=== PATIENT | female | born 1950 | race Caucasian/White ===

== ENCOUNTER 2020-04-15 14:49 | Emergency (ER) | payer MEDICARE, SELFPAY ==
[2020-04-15 16:34] VITALS: BP 190/77; PULSE 114; RESP 18; TEMP 36.8; O2SAT 98; BMI 20.7
--- NOTE | 2020-04-15 17:48 | CT_ITS ---
EXAMINATION: CT ANGIOGRAM CHEST WITH CONTRAST CLINICAL INFORMATION: Upper back pain with question of dissection. COMPARISON: CT chest 02/15/2020 and CTA chest 08/02/2016. TECHNIQUE: Multiple axial images were obtained through the chest after the administration of 70 mL of Omnipaque 350 intravenous contrast. Extensive vascular post-processing including two-dimensional and three-dimensional reformatted images were created and reviewed on an independent workstation. This CT examination was performed using dose optimization techniques as appropriate, variously including the following: *Automated exposure control. *Adjustment of mA and/or kV according to patient size (this includes techniques or standardized protocols for targeted exams where dose is matched to indication/reason for exam; i.e. extremities or head). *Use of iterative reconstruction technique. DLP: 224 mGy-cm VASCULAR FINDINGS: The thoracic aorta demonstrates atherosclerotic changes but no aneurysm or dissection is seen. Mild atherosclerotic changes are seen with calcific plaque. Three-vessel branching pattern of the arch is present. The visualized portion of the abdominal aorta demonstrates atherosclerotic changes with calcified plaque but is otherwise unremarkable. The celiac and SMA are patent. Single renal arteries are present in each side which are patent. Although not carried out for evaluation of the pulmonary arteries or pulmonary veins, these are extremely well seen and there is no evidence of pulmonary emboli. NONVASCULAR FINDINGS: There are underlying changes of COPD in the lungs. Biapical pleural scarring is present. There had been pulmonary nodules noted in the past. A new 7 mm right upper lobe nodule medially had been noted previously which now measures only 3.6 mm (series 5 image 76). Other lung nodules are unchanged. There is a paracardiac mass in the left lower lobe measuring 1.8 x 1.8 x 1.2 cm. Portions measure water density or slightly greater yet some portions measure more solid. The appearance of this is unchanged when compared to the prior exam but on the 02/10/2018 study this was significantly smaller measuring 0.7 x 0.4 cm (prior series 4 image 446). No mediastinal or hilar lymphadenopathy is seen. The visualized chest wall is unremarkable. Again seen are calcified thyroid nodules. No significant abnormality is seen in the upper abdomen. CT/CT angio chest IMPRESSION: 1. No evidence of aortic dissection or aneurysm. 2. No evidence of pulmonary emboli. 3. Underlying COPD with the majority of pulmonary nodules without change. 4. A worrisome mass which has significantly enlarged since 02/10/2018 in the left lower lobe adjacent to the cardiac border and major fissure. PET/CT is recommended for further evaluation.
--- NOTE | 2020-04-15 17:48 | ECG_ITS ---
Test Reason : upper back pain Blood Pressure : / mmHG Vent. Rate : 124 BPM Atrial Rate : 124 BPM P-R Int : 144 ms QRS Dur : 098 ms QT Int : 308 ms P-R-T Axes : 084 088 040 degrees QTc Int : 442 ms Sinus tachycardia with occasional Premature ventricular complexes Possible Anterior infarct (cited on or before 01-AUG-2016) Abnormal ECG When compared with ECG of 30-SEP-2018 08:01, Sinus rhythm has replaced Atrial fibrillation ST no longer depressed in Inferior leads ST no longer depressed in Lateral leads T wave inversion less evident in Inferior leads T wave inversion no longer evident in Lateral leads Referred By: Edgar Quesada Electronically Signed By:ANA ADAME MD
--- NOTE | 2020-04-15 17:52 | ED_ITS ---
HPI - Back Pain/Injury General Chief Complaint: Back Pain/Injury Stated Complaint: mid back pain Time Seen by Provider: 04/15/20 17:42 Source: patient Mode of arrival: ambulatory Limitations: no limitations History of Present Illness HPI Narrative: patient with no history of back problems history of AFib on Eliquis woke up at 04:00 went to bathroom and while coming back noticed sharp pain in right infrascapular area which getting slightly worse on movements no shortness of breath no chest pain no diaphoresis no syncope no spinal tenderness no rash. Patient never had similar pain in the past patient denies any abdominal pain no nausea no vomiting Related Data Allergies Allergy/AdvReac Type Severity Reaction Status Date / Time nickel [NICKEL] Allergy Severe RASH Unverified 03/07/20 14:35 moxifloxacin [From AVELOX] Allergy Unknown UNKNOWN Unverified 03/07/20 14:35 Review of Systems Review of Systems: REVIEW OF SYSTEMS: Pertinent positives and negatives are stated above in the history. GEN: no fevers, chills, fatigue HEENT: no nasal congestion, sore throat, ear pain NEURO: no headache, dizziness, focal weakness PULM: no cough, shortness of breath CV: no chest pain, palpitations, LE edema ABD: no abdominal pain, nausea, vomiting, diarrhea : no dysuria, urgency, frequency SKIN: no rash ROS otherwise negative x 10 PMFSH Past Medical History Medical History Atrial fibrillation COPD (chronic obstructive pulmonary disease) Hypertension Surgical History H/O lumpectomy History of appendectomy Social History Social History Advance Directives: No Advance Directives Information Provided: Yes Physical Exam Vital Signs: Vital Signs: Vital Signs Temp Pulse Resp BP Pulse Ox 04/15/20 21:17 91 18 176/54 H 99 04/15/20 20:59 107 H 167/68 H 04/15/20 20:46 110 H 16 167/68 H 97 04/15/20 19:25 108 H 18 160/69 H 96 04/15/20 16:34 98.3 F 114 H 18 190/77 H 98 Body Mass Index 20.7 Appearance: Alert. Oriented X3. No acute distress. Eyes: Pupils equal, round and reactive to light. ENT: Pharynx normal. Neck: Normal inspection. Neck supple. CVS: Normal heart rate and rhythm. Pulses normal. Respiratory: No respiratory distress. Breath sounds normal. no focal bony ten derness, skin normal no vertebral tenderness Abdomen: Soft and nontender. Skin: Skin warm and dry. Normal skin color. Normal skin turgor. Extremities: No lower extremity edema. Good range of movement Neuro: Oriented X 3. No motor deficit. No sensory deficit. Course Course Course Narrative: Patient feeling much better now CTA negative for any aortic dissection or any significant pathology patient has a small nodule on the left lower lobe which is been stable for last 2 years , pain likely is muscular MDM - Back Pain/Injury Lab Data Result diagrams: 04/15/20 18:45 04/15/20 18:46 Labs: Lab Results 04/15/20 04/15/20 04/15/20 Range/Units 18:45 18:45 18:46 WBC 8.1 (4.8-10.8) X10*3/uL RBC 5.18 (4.20-5.50) X10*6/uL Hgb 15.0 (12.0-16.0) g/dl Hct 43.9 (37-47) % MCV 84.7 (80-98) fL MCH 29.0 (27.0-33.0) pg MCHC 34.2 (31.0-35.0) g/dl RDW 12.2 (11.0-16.0) % Plt Count 321 (160-400) X10*3/uL MPV 8.8 L (9.4-12.3) fL Immature Gran % (Auto) 0.2 (0.0-0.4) % Neut % (Auto) 83.5 H (45-73) % Lymph % (Auto) 11.0 L (20-40) % [place] % (Auto) 4.9 (2-11) % Eos % (Auto) 0.0 (0-4) % Baso % (Auto) 0.4 (0-2) % Lymph # (Auto) 0.9 L (1.2-4.9) X10*3/uL [place] # (Auto) 0.4 (0.1-1.2) X10*3/uL Eos # (Auto) 0.0 (0.0-0.4) X10*3/uL Baso # (Auto) 0.0 (0.0-0.2) X10*3/uL Abs Immat Gran (auto) 0.02 (0.00-0.03) X10*3/uL Absolute Neuts (auto) 6.8 (2.0-8.3) X10*3/uL Absolute Nucleated RBC 0.000 (0.0-0.012) X10*3/uL Nucleated RBC % (auto) 0.0 (0.0-0.2) /100WBC PT 14.6 H (10.8-13.0) SEC INR 1.2 H (0.9-1.1) APTT 41.7 H (24.1-38.0) SEC Sodium 128 L (135-145) mmol/L Potassium 4.1 (3.3-5.1) mmol/l Chloride 91 L (96-108) mmol/L Carbon Dioxide 26 (22-29) mmol/L Anion Gap 15 (12-20) BUN 14 (9-16) mg/dL Creatinine 0.82 (0.5-1.4) mg/dL Estim Creat Clear Calc 54.3 Estimated GFR > 60 Random Glucose 148 H (60-115) mg/dL Calcium 9.5 (8.4-10.2) mg/dL Total Bilirubin 0.7 (0.0-1.0) mg/dL AST 22 (5-31) U/L ALT 20 (0-31) U/L Alkaline Phosphatase 105 (39-117) U/L Total Protein 7.4 (6.5-8.0) g/dL Albumin 4.6 (3.5-5.0) g/dL ECG Data Attestation: I personally reviewed and interpreted this ECG as follows: Prior ECG tracings: available for review Interpretation: sinus tachycardia with heart rate 124 no acute STT wave changes normal axis poor progression of R-wave
[2020-04-15 18:50] LABS: MANUAL DIFF FLAG NO
[2020-04-15 18:58] LABS: Basophils Percent Auto 0.4 % (0-2); Hematocrit 43.9 % (37-47); Imm Gran Abs Auto 0.02 X10*3/uL (0.00-0.03); Imm Gran Pct Auto 0.2 % (0.0-0.4); Lymphocytes Absolute Auto 0.9 X10*3/uL (1.2-4.9); Mean Corpuscular HGB Conc 34.2 g/dl (31.0-35.0); Mean Corpuscular Volume 84.7 fL (80-98); Mean Platelet Volume 8.8 fL (9.4-12.3); Monocytes Absolute Auto 0.4 X10*3/uL (0.1-1.2); Monocytes Percent Auto 4.9 % (2-11); Neutrophils Absolute Auto 6.8 X10*3/uL (2.0-8.3); Neutrophils Percent Auto 83.5 % (45-73); Platelet Count 321 X10*3/uL (160-400); Red Blood Count 5.18 X10*6/uL (4.20-5.50); Red Cell Distribution Width 12.2 % (11.0-16.0); White Blood Count 8.1 X10*3/uL (4.8-10.8)
[2020-04-15 19:17] LABS: Alanine Aminotransferase 20 U/L (0-31); Albumin Level 4.6 g/dL (3.5-5.0); Alkaline Phosphatase 105 U/L (39-117); Anion Gap 15 (12-20); Aspartate Amino Transferase 22 U/L (5-31); Bilirubin Total 0.7 mg/dL (0.0-1.0); Blood Urea Nitrogen 14 mg/dL (9-16); Calcium 9.5 mg/dL (8.4-10.2); Carbon Dioxide 26 mmol/L (22-29); Chloride 91 mmol/L (96-108); Creatinine Clr Calc Pharmacy 54.3; Estimated Glomerular Filt Rate > 60; Glucose Random 148 mg/dL (60-115); Potassium 4.1 mmol/l (3.3-5.1); Sodium 128 mmol/L (135-145); Total Protein 7.4 g/dL (6.5-8.0)
[2020-04-15 19:23] LABS: INTERNATIONAL NORM RATIO 1.2 (0.9-1.1); Prothrombin Time 14.6 SEC (10.8-13.0)
[2020-04-15 19:25] VITALS: BP 160/69; PULSE 108; RESP 18; O2SAT 96
[2020-04-15 19:25] LABS: Partial Thromboplastin Time 41.7 SEC (24.1-38.0)
[2020-04-15] MEDS: iohexoL 350 MG/ML 100 ML INFUS..BTL IV (19:51)
[2020-04-15 20:46] VITALS: BP 167/68; PULSE 110; RESP 16; O2SAT 97
--- NOTE | 2020-04-15 20:47 | PC.NURSE ---
MD IN ROOM FOR RE-EVAL. PT C/O HEADACHE PAIN AND UPPER BACK PAIN. PT AWAITING MEDS FOR PAIN.
[2020-04-15] MEDS: traMADoL HCL 50 MG TABLET PO (20:58)
[2020-04-15] MEDS: Lidocaine 4 % Patch ADH..PATCH 1 PATCH TRANSDERMA (20:58)
[2020-04-15 20:59] VITALS: BP 167/68; PULSE 107
[2020-04-15] MEDS: Metoprolol Tartrate 5 MG/5 ML VIAL IVPUSH (20:59)
[2020-04-15 21:17] VITALS: BP 176/54; PULSE 91; RESP 18; O2SAT 99
--- NOTE | 2020-04-15 21:29 | PC.NURSE ---
Addendum entered by Vibha Jain 04/15/20 21:31: THIS CALL WAS MADE AT 1345. NURSE UNABLE TO TAKE REPORT. Original Note: FLOOR UNABLE TO TAKE REPORT.
--- NOTE | 2020-04-15 21:29 | PC.NURSE ---
FLOOR UNABLE TO TAKE REPORT.
== END 2020-04-15 22:55 | disposition home or self-care (01) ==
PROVIDERS: Emergency Provider Internal Medicine; PCP Internal Medicine
DX: M54.5 Low back pain (principal); I48.91 Unspecified atrial fibrillation; Z79.01 Long term (current) use of anticoagulants; Z79.899 Other long term (current) drug therapy
CPT/HCPCS: 36415; 71275; 80053; 85025; 85610; 85730; 93005; 96374; 99284

== ENCOUNTER → 2020-08-07 08:13 | Outpatient (BNVA) | payer MEDICARE, SELFPAY | PROVIDERS: PCP Internal Medicine; Visit Provider Internal Medicine | DX: I48.0 Paroxysmal atrial fibrillation (principal); I49.3 Ventricular premature depolarization; I10 Essential (primary) hypertension | CPT/HCPCS: 93005; 99212 ==

== ENCOUNTER 2020-09-02 10:28 | Outpatient (REF) | payer MEDICARE, SELFPAY ==
[2020-09-02 11:05] LABS: Estimated Average Glucose 143 mg/dL; Hemoglobin A1c % 6.6 %
[2020-09-02 11:24] LABS: Alanine Aminotransferase 19 U/L (0-31); Albumin Level 4.6 g/dL (3.5-5.0); Alkaline Phosphatase 112 U/L (39-117); Aspartate Amino Transferase 19 U/L (5-31); Bilirubin Direct 0.2 mg/dL (0.0-0.5); Bilirubin Total 0.6 mg/dL (0.0-1.0); Cholesterol 214 mg/dL; Glucose Fasting 145 mg/dL (60-99); HDL Cholesterol 65 mg/dL; LDL Cholesterol Calculated 116 mg/dl; Total Protein 7.3 g/dL (6.5-8.0); Triglycerides 166 mg/dL
[2020-09-02 11:35] LABS: Reflex LDLD? No
== END 2020-09-02 10:29 | disposition home or self-care (01) ==
LOC: HO.LNP 10:28
PROVIDERS: Visit Provider Internal Medicine
DX: E78.00 Pure hypercholesterolemia, unspecified (principal); R73.03 Prediabetes
CPT/HCPCS: 80061; 80076; 82947; 83036

== ENCOUNTER → 2020-09-13 10:00 | Outpatient (BNVA) | payer MEDICARE, SELFPAY | PROVIDERS: PCP Internal Medicine; Visit Provider Surgery | DX: R91.1 Solitary pulmonary nodule (principal) | CPT/HCPCS: 99212 ==

== ENCOUNTER 2020-09-13 14:51 | Outpatient (REF) | payer MEDICARE, SELFPAY ==
--- NOTE | 2020-09-13 17:44 | PFT_ITS ---
INDICATION: Pulmonary nodule. SPIROMETRY: The FEV1 to FVC 40% with an FEV1 of 0.65 L, which is 29% predicted, and an FVC of 1.61 L, which is 55% predicted. No significant response to bronchodilators noted. Maximum voluntary ventilation 27% predicted. LUNG VOLUMES: Total lung capacity 91% predicted with residual volume of 132% predicted. DIFFUSION CAPACITY: DLCO 19% predicted. COMPARISONS: None available. INTERPRETATION: There is an obstructive ventilatory defect consistent with very severe COPD. No significant response to bronchodilators noted. This is severe decrease in maximum voluntary ventilation secondary to deconditioning and also worsening dynamic inspiratory capacity. Lung volumes do demonstrate significant air trapping due to the COPD and there is also a very severe diffusion impairment consistent with significant emphysematous changes and/or the parenchymal lung conditions and/or pulmonary vascular conditions. Clinical correlation is warranted. MD MELITON Tinoco/MODL / [id number]
== END 2020-09-13 14:52 | disposition home or self-care (01) ==
LOC: HO.RESP 14:51
PROVIDERS: PCP Internal Medicine; Visit Provider Surgery
DX: R91.1 Solitary pulmonary nodule (principal)
CPT/HCPCS: 94060; 94727; 94729

== ENCOUNTER 2020-10-01 11:34 | Outpatient (REF) | payer MEDICARE, SELFPAY ==
--- NOTE | ~2020-10-01 | PE_ITS ---
EXAMINATION: Fluorine-18 FDG PET/CT Scan CLINICAL INDICATION: Initial treatment management. Pulmonary nodule, initial staging. PROCEDURE: 68 minutes following the intravenous administration of 16.6 mCi of fluorine 18 FDG, images from the base of the skull to the mid thighs were obtained using a combined PET/CT scanner with CT scan based attenuation correction. No oral contrast was administered. No intravenous contrast was administered. Transverse, coronal, sagittal, and volume reconstruction projections were obtained. The patient's blood glucose as determined by a finger stick, was 140 mg/dl immediately prior to injection. Total CT exam dose-length product 223.29 mGy-cm * These CT images were obtained using dose optimization techniques as appropriate, variously including the following: Automated exposure control * Adjustment of mA and/or kV according to patient size (this includes techniques or standardized protocols for targeted exams where dose is matched to indication/reason for exam; i.e. extremities or head) * Use of iterative reconstruction technique COMPARISON: No previous PET/CT scan is available for comparison. CT angiogram of the chest dated 04/15/[address] scan of the abdomen and pelvis dated 11/21/2018 are available for comparison. FINDINGS: (Slice numbers described in this report are numbered superiorly to inferiorly with slice #1 in the head) NECK AND VISUALIZED HEAD: No foci of abnormal FDG activity are noted. The distribution of FDG activity is physiological. There is no cervical lymphadenopathy. Several calcified right thyroid lobe nodules are present, unchanged from prior studies. There is no abnormal FDG activity in the thyroid gland. THORAX: There is an FDG avid left lower lobe pulmonary nodule showing SUVmax 5.3, slice 111/267. This corresponds to an opacity on the corresponding CT images it measures 2.1 x 1.6 cm in largest transverse dimensions, and approximately 1.9 cm cephalocaudad. There is similar in appearance to the CT scan dated 04/15/2020.h there is a focus of mildly increased FDG activity present in a pleural-based opacity posteriorly in the left lower lobe, SUVmax 2.5, slice 97/267. On the CT images this measures 1.0 x 0.6 cm in largest transverse dimensions, and approximately 0.7 cm cephalocaudad. This appears larger than a smaller subcentimeter nodule present on 04/15/2020. There are several additional small subcentimeter nodules present bilaterally but do not appear significantly changed from 04/15/2020 and are too small to be characterized on the FDG PET images. There is also some apical scarring present bilaterally and this does not show abnormal FDG activity. There is no mediastinal, supraclavicular, or axillary lymphadenopathy. Postsurgical changes are present in the left breast with no associated abnormal FDG activity. ABDOMEN AND PELVIS: No foci of abnormal FDG activity are present in the abdomen or pelvis. The liver, gallbladder, spleen, kidneys, adrenal glands and pancreas are unremarkable except for a densely calcified 0.7 cm right lower pole renal calculus which does not appear significantly changed from the prior CT scan of the abdomen and pelvis dated 11/21/2018. A splenule medial to the lower pole of the anterior aspect of the spleen is noted and is also unchanged from 11/21/2018 and shows no abnormal FDG activity. There is mild FDG activity throughout the gastrointestinal tract without a suspicious focal component. There is diffuse diverticulosis without evidence of diverticulitis. The hollow viscera are otherwise unremarkable. The uterus appears resected. The pelvic organs are otherwise unremarkable. There is no retroperitoneal, mesenteric, pelvic or renal lymphadenopathy. MUSCULOSKELETAL: No foci of abnormal FDG activity are present in the osseous structures. There are diffuse degenerative changes in the spine but no suspicious sclerotic or lytic lesions are visualized. VASCULAR: Diffuse vascular calcifications including coronary are noted. PET/PET CT fusion skull to thigh IMPRESSION: 1. An FDG avid left lower lobe pulmonary nodule is noted and is most likely malignant in etiology. 2. A few additional pulmonary nodules are present, subcentimeter in size and too small to be characterized on the FDG PET images. 3. No additional abnormalities are present suspicious for metastatic or other malignant lesions.
== END 2020-10-01 11:35 | disposition home or self-care (01) ==
LOC: HO.PET 11:34
PROVIDERS: PCP Internal Medicine; Visit Provider Surgery
DX: Z13.89 Encounter for screening for other disorder (principal)

== ENCOUNTER → 2020-10-04 10:08 | Outpatient (BNVA) | payer MEDICARE, SELFPAY | PROVIDERS: PCP Internal Medicine; Visit Provider Surgery | DX: R91.1 Solitary pulmonary nodule (principal); Z79.899 Other long term (current) drug therapy; Z87.891 Personal history of nicotine dependence | CPT/HCPCS: 99212 ==

== ENCOUNTER → 2020-10-17 10:41 | Day surgery (SDC) | payer MEDICARE, SELFPAY ==
--- NOTE | ~2020-10-17 | CT_ITS ---
PROCEDURE: CT-GUIDED INSERTION, PLEURAL TUNNEL CATHETER CLINICAL INFORMATION: Small pneumohemothorax status post left lung biopsy. Pneumothorax increasing in size. COMPARISON: CT from earlier on same day. TECHNIQUE: CT fluoroscopic-guided left chest tube placement. This CT examination was performed using dose optimization techniques as appropriate, variously including the following: *Automated exposure control *Adjustment of mA and/or kV according to patient size (this includes techniques or standardized protocols for targeted exams where dose is matched to indication/reason for exam; i.e. extremities or head) *Use of iterative reconstruction technique DLP: 679 mGy-cm FINDINGS: Informed consent had been obtained at time of original consent for left lung biopsy. Using CT fluoroscopic guidance and sterile technique a Yueh needle was placed into the air collection about the lower left chest wall anteriorly. When gas was aspirated the stylette was removed and guidewire was placed through the catheter sheath and coiled within the left pleural space. Following fascial dilatation a 10 Chadian drainage catheter was placed. The catheter was then placed to waterseal. Catheter was placed to low wall suction with improvement in size of the pneumothorax. Suction can be disconnected for patient ambulation. CT/CT chest tube placement IMPRESSION: Placement of 10 Chadian left chest tube for small left pneumothorax/hemothorax.
--- NOTE | ~2020-10-17 | CT_ITS ---
PROCEDURE: CT-GUIDED INSERTION, PLEURAL TUNNEL CATHETER CLINICAL INFORMATION: Small pneumohemothorax status post left lung biopsy. Pneumothorax increasing in size. COMPARISON: CT from earlier on same day. TECHNIQUE: CT fluoroscopic-guided left chest tube placement. This CT examination was performed using dose optimization techniques as appropriate, variously including the following: *Automated exposure control *Adjustment of mA and/or kV according to patient size (this includes techniques or standardized protocols for targeted exams where dose is matched to indication/reason for exam; i.e. extremities or head) *Use of iterative reconstruction technique DLP: 679 mGy-cm FINDINGS: Informed consent had been obtained at time of original consent for left lung biopsy. Using CT fluoroscopic guidance and sterile technique a Yueh needle was placed into the air collection about the lower left chest wall anteriorly. When gas was aspirated the stylette was removed and guidewire was placed through the catheter sheath and coiled within the left pleural space. Following fascial dilatation a 10 Latvian drainage catheter was placed. The catheter was then placed to waterseal. Catheter was placed to low wall suction with improvement in size of the pneumothorax. Suction can be disconnected for patient ambulation. CT/CT guided needle placement IMPRESSION: Placement of 10 Latvian left chest tube for small left pneumothorax/hemothorax.
--- NOTE | ~2020-10-17 | CT_ITS ---
PROCEDURE: CT-GUIDED BIOPSY, LUNG CLINICAL INFORMATION: Left lung mass. COMPARISON: PET/CT of 10/01/[address] of the chest of 04/15/2020. TECHNIQUE: CT fluoroscopic-guided left lung nodule. This CT examination was performed using dose optimization techniques as appropriate, variously including the following: *Automated exposure control *Adjustment of mA and/or kV according to patient size (this includes techniques or standardized protocols for targeted exams where dose is matched to indication/reason for exam; i.e. extremities or head) *Use of iterative reconstruction technique DLP: 1071 mGy-cm FINDINGS: Informed consent was obtained from the patient prior to the procedure. During this process, the procedure and potential alternatives were explained, along with the intended outcome and benefits. The risks of the procedure, as well as the risk of not doing the procedure, were discussed. The patient was given the opportunity to ask questions regarding the procedure and appeared competent to make medical decisions. A signed consent form which documents this discussion was placed in the medical record. Patient has an approximately 2 cm lung nodule which is adjacent to the left heart border and contiguous with the left major fissure lying within the left lower lobe. There is a small amount of pericardial fluid anteriorly. There is also noted to be noncalcified subpleural 1 cm nodule within the right lower lobe on image 64 of 214 of series #4. There is a 4 mm noncalcified nodule seen within the right middle lobe on image 51 of 214. There is a 4 mm noncalcified nodule seen within the right lower lobe on image 118 of 214. There is a 4 mm noncalcified nodule seen within the left upper lobe on image 7 of 214. There is a 4 mm noncalcified nodule seen within the left lower lobe on image 160 of 214 of series #4. Using sterile technique and CT fluoroscopic guidance a 17-gauge coaxial guiding needle was directed to the 2 cm mass adjacent to the pericardium within the left lower lobe with multiple 18-gauge core biopsies being obtained. Preliminary cytologic result was of an adequate specimen. Needle was removed. There is a small left pneumothorax present. Patient was also noted to develop a small left pleural fluid collection likely related to small hemothorax. Patient had a small pneumothorax postbiopsy. A repeat scan performed approximately 10 minutes later showed a mild increase in size of the pneumothorax. A few minutes later the patient had more symptoms of pain and shortness of breath and therefore was brought back to CT for left-sided chest tube placement which will be reported separately. CT/CT biopsy lung LT IMPRESSION: Left lung nodule biopsy with preliminary cytologic result of adequate specimen. Small postprocedure pneumothorax and hemothorax.
[2020-10-17 11:08] VITALS: BMI 20.5
[2020-10-17 11:15] LABS: MANUAL DIFF FLAG NO
[2020-10-17 11:19] LABS: Basophils Percent Auto 0.5 % (0-2); Eosinophils Percent Auto 0.2 % (0-4); Hematocrit 41.5 % (37-47); Hemoglobin 13.8 g/dl (12.0-16.0); Imm Gran Abs Auto 0.02 X10*3/uL (0.00-0.03); Imm Gran Pct Auto 0.3 % (0.0-0.4); Lymphocytes Absolute Auto 1.3 X10*3/uL (1.2-4.9); Lymphocytes Percent Auto 19.5 % (20-40); Mean Corpuscular HGB Conc 33.3 g/dl (31.0-35.0); Mean Corpuscular Hemoglobin 28.8 pg (27.0-33.0); Mean Corpuscular Volume 86.5 fL (80-98); Mean Platelet Volume 8.6 fL (9.4-12.3); Monocytes Absolute Auto 0.4 X10*3/uL (0.1-1.2); Monocytes Percent Auto 6.8 % (2-11); Neutrophils Absolute Auto 4.7 X10*3/uL (2.0-8.3); Neutrophils Percent Auto 72.7 % (45-73); Platelet Count 284 X10*3/uL (160-400); Red Cell Distribution Width 12.9 % (11.0-16.0); White Blood Count 6.5 X10*3/uL (4.8-10.8)
[2020-10-17 11:25] LABS: Prothrombin Time 12.4 SEC (10.8-13.0)
[2020-10-17 11:29] LABS: Partial Thromboplastin Time 40.2 SEC (24.1-38.0)
[2020-10-17 15:55] VITALS: BP 117/57; PULSE 104; RESP 22; TEMP 36.8; O2SAT 98
[2020-10-17 16:10] VITALS: BP 148/86; PULSE 99; RESP 20; O2SAT 98
[2020-10-17 16:25] VITALS: BP 120/72; PULSE 100; RESP 18; O2SAT 99
[2020-10-17] MEDS: Acetaminophen 325 MG TABLET 650 MG PO (16:41)
[2020-10-17 16:47] VITALS: BP 137/85; PULSE 102; RESP 18; O2SAT 100
== END ==
PROVIDERS: Radiology Diagnostic Radiology; PCP Internal Medicine; Visit Provider Radiology Diagnostic Radiology
DX: R91.1 Solitary pulmonary nodule (principal); J95.811 Postprocedural pneumothorax; Y84.8 Other medical procedures as the cause of abnormal reaction of the patient, or of later complication, without mention of misadventure at the time of the procedure; Y82.8 Other medical devices associated with adverse incidents; Y92.234 Operating room of hospital as the place of occurrence of the external cause; J94.2 Hemothorax; I10 Essential (primary) hypertension; J44.9 Chronic obstructive pulmonary disease, unspecified; I48.0 Paroxysmal atrial fibrillation; Z79.01 Long term (current) use of anticoagulants; Z79.899 Other long term (current) drug therapy; Z87.891 Personal history of nicotine dependence
CPT/HCPCS: 32408; 32551; 36415; 71045; 77012; 81210; 81235; 85025; 85610; 85730; 88305; 88333; 88341; 88342; 88360; 88377; 99152; 99153; C1729; J2250; J3010; Q4186

== ENCOUNTER 2020-10-17 16:59 | Inpatient (IN) | payer MEDICARE, SELFPAY ==
--- NOTE | ~2020-10-17 | XR_ITS ---
EXAMINATION: CR CHEST CLINICAL INFORMATION: Left chest tube clamped. 4 hour clamping trial. COMPARISON: Several prior chest x-rays, most recent of which is from earlier today. TECHNIQUE: AP upright portable view of the chest was obtained. FINDINGS: Multiple EKG leads overlie the chest. No change in positioning of the left basilar pleural catheter is seen. There is a persistent trace left apical pneumothorax, unchanged from the exam from earlier today. The lungs are hyperinflated, consistent with emphysema. Patchy parenchymal opacity is seen in the left mid and lower lung, similar to previous exam. No significant effusion is seen. The cardiac mediastinal silhouette is within normal limits in size. Calcification of the aortic arch is seen. Bony structures are unremarkable. XR/XR chest 1V IMPRESSION: No significant change in size of tiny left apical pneumothorax. No change in patchy left mid and lower lung parenchymal opacities, consistent with patient's known left lower lobe mass and surrounding atelectasis.
--- NOTE | ~2020-10-17 | XR_ITS ---
EXAMINATION: XR CHEST CLINICAL INFORMATION: Left pneumothorax pigtail catheter in place COMPARISON: 10/18/2020 TECHNIQUE: Frontal view of the chest was obtained. FINDINGS: Left basilar pigtail catheter in place. Cardiac leads overlie the chest. Hyperexpanded lungs. Small left pneumothorax is decreased in size from prior. No consolidation. Left lower lung nodule again noted. No pleural effusion. The cardiomediastinal silhouette is unchanged, with a calcified aorta. XR/XR chest 1V IMPRESSION: Left-sided chest tube in place with decrease in size of the small left pneumothorax.
--- NOTE | ~2020-10-17 | XR_ITS ---
EXAMINATION: XR CHEST CLINICAL INFORMATION: Left pneumothorax status post pigtail placement COMPARISON: 10/17/2020. TECHNIQUE: Frontal view of the chest was obtained. FINDINGS: Left basilar pigtail in place. Small left apical pneumothorax, slightly increased from the previous study. Left lower lung pulmonary mass. No consolidation or effusion. Cardiomediastinal silhouette stable. XR/XR chest 1V IMPRESSION: Small left apical pneumothorax slightly increased from the previous study. Left basilar pigtail in place.
--- NOTE | 2020-10-17 17:11 | ED_ITS ---
HPI - SOB/Dyspnea General Chief Complaint: General Medical Stated Complaint: transfer from [facility] Time Seen by Provider: 10/17/20 17:11 Source: patient and RN notes reviewed Mode of arrival: other (Stretcher) Limitations: no limitations History of Present Illness HPI Narrative: Patient is 70 years old with history of lateral left lung nodule came here for biopsy and during biopsy patient got small left apical pneumot horax chest tube was placed and patient sent to the ER for observation status post chest tube for pneumothorax patient is off Eliquis for last 3 days history of paroxysmal AFib COPD hypertension and lung nodule at this time patient is feeling slight discomfort at the site of chest tube otherwise denies any shortness of breath saturating 99% on room air Related Data Home Medications Medication Instructions Recorded Confirmed albuterol sulfate 90 mcg/actuation 1 inh INHALATION Q4H PRN 08/07/20 10/17/20 aerosol inhaler fluticasone furoate 200 1 inh INHALATION DAILY 08/07/20 10/17/20 mcg-vilanterol 25 mcg/dose inhalation powder ipratropium 0.5 mg-albuterol 3 mg 3 ml INHALATION QID 08/07/20 10/17/20 (2.5 mg base)/3 mL nebulization soln levothyroxine 88 mcg tablet 88 mcg PO DAILY 08/07/20 10/17/20 lisinopril 10 1 tab PO DAILY 08/07/20 10/17/20 mg-hydrochlorothiazide 12.5 mg tablet montelukast 10 mg tablet 10 mg PO DAILY 08/07/20 10/17/20 rosuvastatin 40 mg tablet 40 mg PO DAILY 08/07/20 10/17/20 tiotropium bromide 2.5 1 inh INHALATION DAILY 08/07/20 10/17/20 mcg/actuation mist for inhalation Previous Rx's Medication Instructions Recorded diltiazem HCl 180 mg 180 mg PO DAILY 90 Days #90 cap 06/25/20 capsule,extended release 24 hr apixaban 5 mg tablet 5 mg PO BID 90 Days #180 tab 07/22/20 Allergies Allergy/AdvReac Type Severity Reaction Status Date / Time moxifloxacin [From AVELOX] Allergy Severe UNKNOWN Verified 10/04/20 10:16 nickel [NICKEL] Allergy Severe RASH Verified 10/04/20 10:16 Review of Systems Review of Systems: Yes all other systems are reviewed and are negative PMFSH Past Medical History Medical History COPD (chronic obstructive pulmonary disease) Former smoker, stopped smoking in distant past History of cancer of left breast History of Graves' disease Hyperlipidemia Hypertension Hypothyroidism Osteopenia PAF (paroxysmal atrial fibrillation) Pulmonary nodule PVC (premature ventricular contraction) Surgical History History of appendectomy History of breast biopsy (~12/2009) History of colonoscopy History of hysterectomy (~12/1988) History of lumpectomy (~2009) History of tonsillectomy History of tubal ligation Family History Family History Father No problems noted. Mother CVD (cardiovascular disease) Social History Social History Smoking Status: Former smoker Use of substances other than those prescribed or required for medical reasons: No Advance Directives: No Advance Directives Information Provided: No service: No Current occupational status: retired Physical Exam Vital Signs: Vital Signs: Last Vital Signs Temp 97.9 F 10/17/20 19:40 Pulse 108 H 10/17/20 22:46 Resp 12 10/17/20 22:46 BP 115/53 L 10/17/20 22:46 Pulse Ox 91 L 10/17/20 22:46 Oxygen Flow Rate 2 10/17/20 17:13 Body Mass Index 20.4 Appearance: Alert. Oriented X3. No acute distress. Eyes: PERRLA, No Nystagmus ENT: Pharynx normal. Oral Mucosa moist Neck: Normal inspection. Neck supple. CVS: Normal heart rate and rhythm. Pulses normal. Respiratory: No respiratory distress. Equal air entry bilateral, no wheezing/rales/rhonchi chest tube on the left side connected to water seal with bubbling air Abdomen: Soft and nontender. Bowel sounds are present, no mass palpable, no CVA tenderness Skin: Skin warm and dry. Normal skin color. Normal skin turgor. Extremities: No lower extremity edema. No calf tenderness Neuro: Oriented X 3. No motor deficit. No sensory deficit.No cerebellar signs , cranial nerves II-XII intact MDM - SOB/Dyspnea MDM Narrative Medical decision making narrative: Patient status post left apical pneumothorax during the procedure for lung biopsy. Status post chest tube. Will admit patient to thoracic for observation Discharge Plan Discharge Clinical Impression: Pneumothorax after biopsy Patient Disposition: Admitted As Inpatient
[2020-10-17 17:13] VITALS: BP 131/50; PULSE 97; RESP 16; TEMP 37.1; O2SAT 99; BMI 20.4
--- NOTE | 2020-10-17 17:24 | PC.NURSE ---
Pt presents to ed from short stay after having lung biopsy to r/o CA and obtained hemothroax. Chest tube in place to low wall suction with 90cc of red blood in collection system. Pt reports no SOB, breathing is unlabored and even. nsr on monitor at this time, sat 99-100% on 2lpm via nc. pt reports 5/10 pain to biopsy site and was given tylenol prior to transfer to ED, declined any further pain interventions at this time. Plan for admission.
--- NOTE | 2020-10-17 19:39 | P.HPGS_ITS ---
History of Present Illness History of Present Illness Date of Service: 10/19/20 Chief complaint: transfer from [facility] Narrative: Patient is a 70 y.o. female with a past medical history of tobacco use (former smoker, 1PPD age [age]), left-sided breast cancer in 2009 (s/p lumpectomy and radiation), COPD, Asthma, emphysema, HTN, prediabetes, and suspicious pulmonary nodule in the left lower lobe who presents with a left pneumothorax following LLL IR bx performed today. A pigtail chest tube was placed in IR following the finding of left pneumothorax. Patient was seen by Dr. Gonzales in the Thoracic Surgery office on 10/04/20. She had been followed by Thoracic for a left lower lobe pulmonary nodule that was found on 04/15/2020. A chest CT showed a 1.8 x 1.8 x 1.2 left lower lobe medial nodule adjacent to the pericardium without any mediastinal lymphadenopathy and no pleural fluid. A CT scan of the chest was reviewed from January of 2020 which shows stability of that nodule when compared to that. A CT scan of the chest from 2017 was also reviewed showing that this same nodule at that time was 0.7 x 0.4 cm. A PET scan was recommended by Dr. Gonzales which showed the left lower lobe nodule to be PET avid SUV max 5.3 with a 2 cm nodule similar in size to back in March. There is no increased PET avidity elsewhere of concern. Her pulmonary function testing done on 09/13/2020 showed an FEV1 of 27% of predicted and a DLCO VA of 33% of predicted. For this reason, she was not deemed a candidate for surgery and was recommended to have a bx of the left lower lobe nodule. Following this bx, a left pneumothorax was found and pigtail placed by IR. For this reason, Thoracic Surgery requested to admit for observation. Patient seen and examined in ER. Doing well, anxious. Reports some shortness of breath following chest tube placement and pain to chest tube insertion site. Currently on 2L nasal cannula. Denies chest pain, nausea, vomiting, diarrhea, fevers, or chills. Chest tube currently to -20cm continuous LWS. Patient denies any other complaints at this time. Review of Systems Review of Systems: Yes all other systems are reviewed and are negative Constitutional: Constitutional: Reports no additional constitutional complaints Eyes: Eyes: Reports no additional eye complaints ENT: Reports system reviewed and no additional complaints, except as documented Cardiovascular: Cardiovascular: Denies chest pain, Denies leg edema, Reports dyspnea and Reports dyspnea on exertion Respiratory: Respiratory: Reports cough (nonproductive), Reports pain with cough (to left chest tube site), Reports dyspnea and Reports dyspnea on exertion Gastrointestinal: Gastrointestinal: Reports no additional gastrointestinal complaints Genitourinary: Comments: Reports she has not voided at this time Musculoskeletal: Musculoskeletal: Reports no additional musculoskeletal complaints Integumentary/Breasts: Skin/Breast: Reports system reviewed and no additional complaints, except as docu Neurologic: Reports system reviewed and no additional complaints, except as documented Psychiatric: Psychiatric: Reports no additional psychiatric complaints PMFSH Past Medical History Medical History COPD (chronic obstructive pulmonary disease) Former smoker, stopped smoking in distant past History of cancer of left breast History of Graves' disease Hyperlipidemia Hypertension Hypothyroidism Osteopenia PAF (paroxysmal atrial fibrillation) Pulmonary nodule PVC (premature ventricular contraction) Family History Family History Father No problems noted. Mother CVD (cardiovascular disease) Surgical History Surgical History History of appendectomy History of breast biopsy (~12/2009) History of colonoscopy History of hysterectomy (~12/1988) History of lumpectomy (~2009) History of tonsillectomy History of tubal ligation Social History Social History Household Members: Spouse Housing: House Do you presently have visiting nurse or other home services: No Smoking Status: Former smoker Smoked in Last 30 Days: No Smoking Quit Date: quit 24 years ago Use of substances other than those prescribed or required for medical reasons: No Currently Displaying Signs/Symptoms of Drug Intoxication Withdrawal: No Any prior treatment program specific to substance use: No Have you been hit, kicked, punched, or otherwise hurt by someone within the past year? If so, by whom?: No Do you feel safe in your current relationship?: Yes Is there a partner from a previous relationship who is making you feel unsafe now?: No Are you made to feel afraid or neglected: No Advance Directives: No Advance Directives Information Provided: No Do you have thoughts of harming others: None Do you have a plan to hurt others: No Plan Recently lost weight without trying: No service: No Current occupational status: retired Meds Allergies Allergy/AdvReac Type Severity Reaction Status Date / Time moxifloxacin [From AVELOX] Allergy Severe UNKNOWN Verified 10/04/20 10:16 nickel [NICKEL] Allergy Severe RASH Verified 10/04/20 10:16 Active Medications: Current Medications Generic Name Dose Route Start Last Admin Trade Name Freq PRN Reason Stop Dose Admin Acetaminophen 975 mg 10/17/20 20:00 Acetaminophen 325 Mg Tablet PO Q6H MEET Albuterol Sulfate 1 puff 10/17/20 19:30 Albuterol Sulfate 90 Mcg 8 Gm Inhaler INHALE Q4H PRN Shortness Of Breath Albuterol/Ipratropium 3 ml 10/17/20 21:00 Albuterol/Iprat 2.5/0.5mg 3 Ml Ampul.Neb INHALE QID [facility] Diltiazem HCl 180 mg 10/18/20 09:00 Diltiazem Hcl Cd 180 Mg Cap.Er.24h PO DAILY [facility] Protocol Docusate Sodium 100 mg 10/17/20 21:00 Docusate Sodium 100 Mg Capsule PO BID [facility] Fluticasone/Vilanterol 1 puff 10/18/20 09:00 Fluticasone/Vilanterol 200/25 Blst.W.Dev INHALE DAILY [facility] Levothyroxine Sodium 88 mcg 10/17/20 19:35 Levothyroxine Sodium 88 Mcg Tablet PO DAILY [facility] Montelukast Sodium 10 mg 10/17/20 19:35 Montelukast Sodium 10 Mg Tablet PO DAILY MEET Non-Formulary Medication 1 tab 10/18/20 09:00 Lisinopril-Hydrochlorothiazide PO DAILY [facility] Non-Formulary Medication 40 mg 10/17/20 19:35 Rosuvastatin PO DAILY [facility] Non-Formulary Medication 1 inhalation 10/18/20 09:00 Tiotropium Gladys INHALE DAILY [facility] Ondansetron HCl 4 mg 10/17/20 19:20 Ondansetron Hcl 4 Mg/2 Ml Vial IVPUSH Q8H PRN Nausea and Vomiting Oxycodone HCl 5 mg 10/17/20 19:28 Oxycodone Hcl Immed Release 5 Mg Tablet PO Q6H PRN Pain, Severe (Pain Scale 7-10) Pharmacy Consult 1 each 10/17/20 18:23 Consult Rx Perform Med Rec MISCELLANE ONCE PRN Consult order Senna 17.2 mg 10/17/20 19:20 Sennosides 8.6 Mg Tablet PO BEDTIME PRN Constipation Sodium Chloride 3 ml 10/18/20 00:00 0.9 % Sodium Chloride Flush 3 Ml Syringe IVFLUSH [facility] Medications Medication Instructions Recorded Confirmed Last Taken Type albuterol sulfate 90 mcg/actuation 1 inh INHALATION Q4H PRN 08/07/20 10/17/20 Unknown History aerosol inhaler fluticasone furoate 200 1 inh INHALATION DAILY 08/07/20 10/17/20 Unknown History mcg-vilanterol 25 mcg/dose inhalation powder ipratropium 0.5 mg-albuterol 3 mg 3 ml INHALATION QID 08/07/20 10/17/20 Unknown History (2.5 mg base)/3 mL nebulization soln levothyroxine 88 mcg tablet 88 mcg PO DAILY 08/07/20 10/17/20 Unknown History lisinopril 10 1 tab PO DAILY 08/07/20 10/17/20 Unknown History mg-hydrochlorothiazide 12.5 mg tablet montelukast 10 mg tablet 10 mg PO DAILY 08/07/20 10/17/20 Unknown History rosuvastatin 40 mg tablet 40 mg PO DAILY 08/07/20 10/17/20 Unknown History tiotropium bromide 2.5 1 inh INHALATION DAILY 08/07/20 10/17/20 Unknown History mcg/actuation mist for inhalation Physical Exam Vital Signs: Vital Signs: Last Vital Signs Temp 98.7 F 10/17/20 17:13 Pulse 97 10/17/20 17:13 Resp 16 10/17/20 17:13 BP 131/50 L 10/17/20 17:13 Pulse Ox 99 10/17/20 17:13 Oxygen Flow Rate 2 10/17/20 17:13 Body Mass Index 20.4 Const: General: cooperative, healthy appearing, comfortable and no acute distress Nutritional Appearance: well nourished Orientation/consciousness: oriented to person, oriented to place, oriented to time and patient oriented x3 Limitations: no limitations HENMT: Head: Yes normal to inspection, Yes normocephalic and Yes atraumatic Mouth: Normal oral and palatal mucosa present Eyes: Visual Castellon: normal visual castellon by confrontation Alignment and Position: alignment normal Periorbital: periorbital findings normal Conjunctivae: conjunctivae normal Sclerae: sclerae normal Pupils: Equal, round and reactive pupils present and Pupil accommodation reflex normal EOM: EOMs intact bilaterally Neck: Neck: Yes normal visual inspection, Yes full ROM, Yes no lymphadenopathy, Yes trachea midline, Yes supple, No lymphadenopathy, No tender and No tracheal deviation Lymphatic: no lymphadenopathy noted Chest: Chest palpation & inspection: normal inspection of the chest and no crepitus Resp: Other: Left anterior pigtail chest tube to -20cm continuous LWS. 1+ intermittent air leak at rest only. 95cc of serousanguinous drainage in atrium. No chest crepitus palpable. Lungs clear to auscultation to right chest castellon. Diminished to left. Effort & Inspection: normal respiratory effort, able to speak in complete sentences, normal respiratory pattern, no audible wheezes, Actively coughing (Non-productive. Congested), not labored, no pursed lip breathing, no respiratory distress, no retractions, no stridor, not tachypneic, no tracheal deviation, no use of accessory muscles and symmetric chest movement Auscultation: not clear to auscultation bilaterally Cardio: Jugular venous distension: no JVD Palpation: normal PMI Rate: regular rate Rhythm: regular rhythm Heart sounds: S1 normal heart sound present, S2 normal heart sound present, no click, no gallops, no murmurs and no rubs GI: Inspection: Yes normal to inspection Auscultation: normal bowel sounds : General: Yes no CVA tenderness Back/Spine/Pelvis: Back: no CVA tenderness Thoracic/Lumbar Spine: thoracic and lumbar spine normal to inspection Skin: General skin exam: no rashes or lesions noted and dry skin Lesions: no lesions Rashes: no rashes Neuro: General: oriented to person, oriented to place, oriented to time, patient oriented x3 and gait normal Cranial nerves: Yes Equal, round and reactive pupils present Extrem: General: Yes normal to inspection, Yes full ROM, Yes capillary refill normal, Yes no clubbing, cyanosis or edema, Yes no pedal edema and Yes normal gait Psych: Appearance: grossly normal and well kempt Mental Status: mental status grossly normal Speech and movement: Normal speech and movement present and Clear speech present Affect: normal affect Attitude: cooperative Thought process: Normal thought process present Thought content: Normal thought content present Results Results Chest x-ray: report reviewed Assessment and Plan (1) Pneumothorax after biopsy: Start date: 10/17/20 Status: Acute Patient is a 70 y.o. female with a PMH of COPD, Emphysema, Asthma, LLL pulmonary nodule measuring 1.8 x 1.8 x 1.2cm who is being admitted for a left pneumothorax s/p IR bx of suspicious nodule and pigtail placement * Patient found to have a left pneumothorax following IR bx of LLL pulmonary nodule now s/p pigtail placement. For this reason, will admit overnight for observation under Thoracic Service * Chest tube currently with 1+ intermittent air leak with expiration at this time. Draining serousanguinous drainage. * Chest tube dressing- May change daily or PRN for excessive drainage * Chest tube management: Keep chest tube to -20cm continuous LWS at this time * Patient may ambulate on waterseal. Patient should be ambulating 3-4 times daily in hallways * Repeat CXR in am * Pulmonary toileting, I/S, cough and deep breathe * Supplemental O2 to keep O2 > 95% * Albuterol inhaler * Pain management: Tylenol, Ketoralac IV, Oxycodone PRN * Bowels: Stool softeners to prevent constipation with narcotics * Hx of Afib: Eliquis currently on hold. Continuous telemetry monitoring * CBC, BMP, Mag ordered tomorrow * DVT prophylaxis: Pneumatic compression stockings bilaterally
[2020-10-17 19:40] VITALS: BP 107/52; PULSE 110; RESP 23; TEMP 36.6; O2SAT 95
--- NOTE | 2020-10-17 19:44 | PC.NURSE ---
Pt aaox4 resting in NAD breathing with ease on 2LPM on NC, not baseline. Pt reports mild pain to biopsy site, is aware of plan for medications per MAR. Pt offers no additional complaints/concerns at this time. Pt afib on monitor with hx of same. Pt VSS. Pt chest tube remains in place, is appropriate. Pt stretcher in lowest locked position, rails raised, call hernandez within reach. Order for Hernandez swab is placed however no label prints from computer. This RN to swab pt and affix a pt demo label to specimen for processing.
[2020-10-17] MEDS: Levothyroxine Sodium 88 MCG TABLET PO (20:16)
[2020-10-17] MEDS: Atorvastatin Calcium 80 MG TABLET PO (20:16)
[2020-10-17] MEDS: Montelukast Sodium 10 MG TABLET PO (20:16)
[2020-10-17] MEDS: Acetaminophen 325 MG TABLET 975 MG PO (20:16)
[2020-10-17 20:21] LABS: COVID-19 Test Negative (Negative)
[2020-10-17] MEDS: Albuterol/Iprat 2.5/0.5MG 3 ML AMPUL.NEB INHALE (20:26)
[2020-10-17 20:28] VITALS: PULSE 101; O2SAT 97
--- NOTE | 2020-10-17 22:43 | MHC.CM.PN ---
CM met with pt. PARIS sandoval and signed per protocol 10/17/20 @2230. Pt admitted, 999 status. Awaiting bed assignment. HCP is not on file. Pt states her PCP has a copy. PCP is Dr. Zane Patel. , DIANA is the HCP ([phone]). Pt uses nebulizer and inhalers at home. No home Oxygen. D/C plan is home without services. Transportation to be provided by . CM to follow for d/c needs.
[2020-10-17 22:46] VITALS: BP 115/53; PULSE 108; RESP 12; O2SAT 91
[2020-10-17] MEDS: Ketorolac Tromethamine 15 MG/ML VIAL 7.5 MG IVPUSH (22:47)
--- NOTE | 2020-10-17 22:48 | PC.NURSE ---
pt reports she has been off eliquis x 5 days.
--- NOTE | 2020-10-17 23:16 | PC.NURSE ---
Report attempted x 1
[2020-10-18] VITALS (12 sets, daily range): BP systolic 122–167; BP diastolic 56–82; PULSE 82–130; RESP 18–20; TEMP 36.1–37.1; O2SAT 91–98
[2020-10-18] MEDS: 0.9 % Sodium Chloride Flush 3 ML SYRINGE IVFLUSH ×4 (00:15→21:28)
[2020-10-18 06:37] LABS: MANUAL DIFF FLAG NO
--- NOTE | 2020-10-18 06:37 | PC.NURSE ---
PATIENT ADMITTED TO [facility] FROM ED WITH PNEUMOTHORAX AFTER PROCEDURE OF LEFT LUNG NODULE BX. PT ALERT, CALM, CO-OP. ORIENTED X3, NO S/SX RESP DISTRESS AND DENIED ALL PAIN. CHEST TUBE PRESENT AT LEFT FLANK TO CLOSED SYSTEM, SEE DOCUMENTATION. DRAINAGE IN CHAMBER IS SERSANG, DSG AT SITE C-D-I. VITALS [id number] UPON ADMISSION, THEN [id number]. O2 AT 2LITERS N/C AND SATS 94-95%. PATIENT ABLE TO NAP WELL, HOB UP, AND CHEST TUBE DRAINAGE SINCE ADMISSION AT 0000 WAS 10 ML TELE MONITOR SHOWS SINUS RHYTHM, LUNG ALEXANDER CLEAR .UPPER AND DIM BASES. MONITORED CLOSELY
[2020-10-18 06:55] LABS: Basophils Percent Auto 0.4 % (0-2); Eosinophils Percent Auto 0.3 % (0-4); Hematocrit 36.2 % (37-47); Hemoglobin 12.1 g/dl (12.0-16.0); Imm Gran Abs Auto 0.02 X10*3/uL (0.00-0.03); Imm Gran Pct Auto 0.3 % (0.0-0.4); Lymphocytes Absolute Auto 1.2 X10*3/uL (1.2-4.9); Lymphocytes Percent Auto 16.3 % (20-40); Mean Corpuscular HGB Conc 33.4 g/dl (31.0-35.0); Mean Corpuscular Hemoglobin 29.2 pg (27.0-33.0); Mean Corpuscular Volume 87.4 fL (80-98); Mean Platelet Volume 9.1 fL (9.4-12.3); Monocytes Absolute Auto 0.7 X10*3/uL (0.1-1.2); Monocytes Percent Auto 9.1 % (2-11); Neutrophils Absolute Auto 5.3 X10*3/uL (2.0-8.3); Neutrophils Percent Auto 73.6 % (45-73); Platelet Count 280 X10*3/uL (160-400); Red Blood Count 4.14 X10*6/uL (4.20-5.50); Red Cell Distribution Width 12.9 % (11.0-16.0); White Blood Count 7.2 X10*3/uL (4.8-10.8)
[2020-10-18 07:08] LABS: Magnesium 2.3 mg/dL (1.6-2.6)
[2020-10-18] MEDS: Albuterol/Iprat 2.5/0.5MG 3 ML AMPUL.NEB INHALE ×3 (07:09→20:38)
[2020-10-18 07:15] LABS: Anion Gap 13 (12-20); Blood Urea Nitrogen 26 mg/dL (9-16); Calcium 9.4 mg/dL (8.4-10.2); Carbon Dioxide 26 mmol/L (22-29); Chloride 99 mmol/L (96-108); Creatinine Clr Calc Pharmacy 48.1; Estimated Glomerular Filt Rate > 60; Glucose Random 128 mg/dL (60-115); Potassium 4.4 mmol/L (3.3-5.1); Sodium 134 mmol/L (135-145)
[2020-10-18] MEDS: lisinopriL 10 MG TABLET PO (08:26)
[2020-10-18] MEDS: dilTIAZem HCL CD 180 MG CAP.ER.24H PO (08:26)
[2020-10-18] MEDS: hydroCHLOROthiazide 12.5 MG TABLET PO (08:27)
[2020-10-18] MEDS: Fluticasone/Vilanterol 200/25 BLST.W.DEV 1 PUFF INHALE (10:13)
--- NOTE | 2020-10-18 12:23 | MHC.CM.PN ---
PER ROUNDS DC PLAN REMANINS HOME NO SERVCEIS NO EXPECTED DC DATE AT THIS TIME
--- NOTE | 2020-10-18 12:49 | HO.RADPN ---
RADIOLOGY Narrative Narrative: Afeb . Vital sign stable. Left chest tube to suction. CXR show small left pneumothorax similar to yesteredays exam. Repeat cxr ordered for tomorrow and hopefully can removed tube.
--- NOTE | 2020-10-18 14:35 | P.PNTS_ITS ---
Subjective Subjective Date of Service: 10/18/20 Interval history: Patient seen and examined this morning. All patient has no complaints other than she wants to go home. She denies any pain, increased shortness of breath, fever, chills or any other concerns. Remaining 9 point review of systems all negative. Physical Exam Vital Signs: Vital Signs: Last Vital Signs Temp 98.5 F 10/18/20 11:37 Pulse 103 H 10/18/20 11:37 Resp 20 10/18/20 11:37 BP 141/65 H 10/18/20 11:37 Pulse Ox 94 10/18/20 11:37 Oxygen Flow Rate 2 10/18/20 05:05 Body Mass Index 20.4 Const: General: cooperative, comfortable and no acute distress Orientation/consciousness: patient oriented x3 HENMT: Head: Yes normal to inspection Neck: Other: Trachea midline with no subcu air. Neck: Yes normal visual inspection and Yes no JVD Chest: Other: No subcu air along chest wall. Left sided pigtail catheter remains indwelling and secure, attached to atrium device at -20 LWS. No air leak detected, fluid output 60 cc of serus sanguinous. Resp: Other: BS diminished bilaterally Cardio: Rate: regular rate Rhythm: regular rhythm Heart sounds: S1 normal heart sound present, S2 normal heart sound present, no gallops, no murmurs and no rubs GI: Inspection: Yes normal to inspection Neuro: General: patient oriented x3 Progress Note: A&P Assessment and plan (1) Pneumothorax after biopsy: Status: Acute Assessment and Plan: Patient is a 70 y.o. female with a PMH of COPD, Emphysema, Asthma, LLL pulmonary nodule who was admitted for a left pneumothorax s/p IR bx of suspicious nodule and pigtail placement Patient found to have a left pneumothorax following IR bx of LLL pulmonary nodule now s/p pigtail placement. Chest tube currently with no air leak . Draining serousanguinous drainage. Chest tube dressing- May change daily or PRN for excessive drainage. Chest tube management: Keep chest tube to -20cm continuous LWS at this time. Morning chest xray shows slight increase in LS apical pneumo, however still remains very small. Repeat CXR for tomorrow. Patient may ambulate on waterseal. Patient should be ambulating 3-4 times daily in hallways Repeat CXR in am Pulmonary toileting, I/S, cough and deep breathe Supplemental O2 to keep O2 > 95% Albuterol inhaler Pain management: Tylenol, Ketoralac IV, Oxycodone PRN Bowels: Stool softeners to prevent constipation with narcotics Hx of Afib: Eliquis currently on hold. Continuous telemetry monitoring CBC, BMP, Mag ordered tomorrow DVT prophylaxis: Pneumatic compression stockings bilaterally Fall Risk Details Current Medications: Current Medications Generic Name Dose Route Start Last Admin Trade Name Freq PRN Reason Stop Dose Admin Acetaminophen 975 mg 10/17/20 20:00 10/18/20 08:28 Acetaminophen 325 Mg Tablet PO Not Given Q6H MEET Albuterol Sulfate 1 puff 10/17/20 19:30 Albuterol Sulfate 90 Mcg 8 Gm Inhaler INHALE Q4H PRN Shortness Of Breath Albuterol/Ipratropium 3 ml 10/17/20 21:00 10/18/20 11:18 Albuterol/Iprat 2.5/0.5mg 3 Ml Ampul.Neb INHALE 3 ml QID MEET Administration Atorvastatin Calcium 80 mg 10/17/20 21:00 10/17/20 20:16 Atorvastatin Calcium 80 Mg Tablet PO 80 mg BEDTIME MEET Administration Diltiazem HCl 180 mg 10/18/20 09:00 10/18/20 08:26 Diltiazem Hcl Cd 180 Mg Cap.Er.24h PO 180 mg DAILY MEET Administration Protocol Docusate Sodium 100 mg 10/17/20 21:00 10/18/20 08:28 Docusate Sodium 100 Mg Capsule PO Not Given BID MEET Fluticasone/Vilanterol 1 puff 10/18/20 08:00 10/18/20 10:13 Fluticasone/Vilanterol 200/25 Blst.W.Dev INHALE 1 puff RDAILY MEET Administration Hydrochlorothiazide 12.5 mg 10/18/20 09:00 10/18/20 08:27 Hydrochlorothiazide 12.5 Mg Tablet PO 12.5 mg DAILY MEET Administration Protocol Ketorolac Tromethamine 7.5 mg 10/17/20 20:00 10/17/20 22:47 Ketorolac Tromethamine 15 Mg/Ml Vial IVPUSH 7.5 mg Q6H PRN Administration Pain, Moderate (Pain Scale 4-6 Levothyroxine Sodium 88 mcg 04/29/21 19:35 10/18/20 06:29 Levothyroxine Sodium 88 Mcg Tablet PO Not Given DAILY@0600 [facility] Lisinopril 10 mg 10/18/20 09:00 10/18/20 08:26 Lisinopril 10 Mg Tablet PO 10 mg DAILY [facility] Administration Protocol Montelukast Sodium 10 mg 10/17/20 19:35 10/18/20 08:28 Montelukast Sodium 10 Mg Tablet PO Not Given DAILY [facility] Ondansetron HCl 4 mg 10/17/20 19:20 Ondansetron Hcl 4 Mg/2 Ml Vial IVPUSH Q8H PRN Nausea and Vomiting Oxycodone HCl 5 mg 10/17/20 19:28 Oxycodone Hcl Immed Release 5 Mg Tablet PO Q6H PRN Pain, Severe (Pain Scale 7-10) Pharmacy Consult 1 each 10/17/20 18:23 Consult Rx Perform Med Rec MISCELLANE ONCE PRN Consult order Senna 17.2 mg 10/17/20 19:20 Sennosides 8.6 Mg Tablet PO BEDTIME PRN Constipation Sodium Chloride 3 ml 10/18/20 00:00 10/18/20 08:26 0.9 % Sodium Chloride Flush 3 Ml Syringe IVFLUSH 3 ml QSHIFT [facility] Administration Tiotropium [place] 1 puff 10/18/20 08:00 10/18/20 10:16 Tiotropium [place] 18 Mcg Cap.W.Dev INHALE 1 puff RDAILY [facility] Administration Time Spent With Patient Time: Total time spent is greater than 50% in coordination of care (as documented) at patient's floor/unit and/or counseling patient: Time with patient: 15 - 24 minutes
[2020-10-18] MEDS: Levothyroxine Sodium 88 MCG TABLET PO ×2 (15:16)
--- NOTE | 2020-10-18 17:00 | ECG_ITS ---
Test Reason : TACHYCARIC Blood Pressure : / mmHG Vent. Rate : 126 BPM Atrial Rate : 272 BPM P-R Int : 000 ms QRS Dur : 090 ms QT Int : 272 ms P-R-T Axes : -84 072 000 degrees QTc Int : 393 ms Atrial flutter with variable A-V block Nonspecific ST and T wave abnormality Abnormal ECG When compared with ECG of 15-APR-2020 15:45, Atrial flutter has replaced Sinus rhythm Nonspecific T wave abnormality now evident in Anterolateral leads Referred By: Radha Gonzales Electronically Signed By:
--- NOTE | 2020-10-18 19:25 | PC.NURSE ---
Late evening pt HR 120-160s - Rn to room to assess pt. PT teary at bedside. Pt stating having a bit of a hard time, why is it always me I get myself worked up Im not surprised my heart is fast, I dont feel it. Therapeutic communication given, pt states she has these episodes On telemetry pt looked like a fib./ a flutter. EKG obtained. Call out to oncall thoracic. EKG showed a flutter. When thoracic called Rn back pt had in room, feeling much better, HR 100-110s. Thoracic stated to contact if sustains HR >140 and not r/t anxiety (which seems like last episodes was r/t as HR calmed down as pt did as well). PT remains in a fib on tele at this time. Will closely monitor RN alsoh ad been encouraging pt to get OOB and walk daily as reccomended - pt refused says later and that she was currently tired when asked -passed onto on coming RN to continue to encourage OOB if HR allows. Pt did sit up and dangle at bedside for meals but didnt get OOB. Uses the IS with encouragement. Needs support and encouragement at this time. Passed all info to oncoming RN
[2020-10-18] MEDS: Atorvastatin Calcium 80 MG TABLET PO (21:28)
[2020-10-18] MEDS: Montelukast Sodium 10 MG TABLET PO (22:52)
--- NOTE | 2020-10-19 01:03 | PC.NURSE ---
Pt noted to be in NSR and flipped to aflutter rapidly, sustaining HR above 100 for a few minutes, reaching 160. Back to NSR, HR sustaining in 90s. Pt has no complaints, assessed and vitals stable. Will continue to monitor.
[2020-10-19 02:39] VITALS: BP 160/71; PULSE 97; RESP 20; TEMP 36.3; O2SAT 92
[2020-10-19] MEDS: Albuterol/Iprat 2.5/0.5MG 3 ML AMPUL.NEB INHALE (07:29)
[2020-10-19] MEDS: Fluticasone/Vilanterol 200/25 BLST.W.DEV 1 PUFF INHALE (07:30)
[2020-10-19 08:00] VITALS: BP 154/102; PULSE 104; RESP 18; TEMP 36.8; O2SAT 93
[2020-10-19 08:59] VITALS: BP 154/102
[2020-10-19] MEDS: dilTIAZem HCL CD 180 MG CAP.ER.24H PO (08:59)
[2020-10-19 09:00] VITALS: BP 154/102; PULSE 104
[2020-10-19] MEDS: lisinopriL 10 MG TABLET PO (09:00)
[2020-10-19] MEDS: hydroCHLOROthiazide 12.5 MG TABLET PO (09:00)
[2020-10-19] MEDS: 0.9 % Sodium Chloride Flush 3 ML SYRINGE IVFLUSH (09:05)
[2020-10-19 12:00] VITALS: TEMP 36.7
--- NOTE | 2020-10-19 12:01 | MHC.CM.PN ---
Patient has been medically cleared for dc to home today, no services. Last IMM addressed on 10/17/2020.
--- NOTE | 2020-10-19 13:04 | P.DS_ITS ---
DS: Providers Provider Date of Service: 10/19/20 Date of admission: 10/17/20 19:21 Primary care physician: Nikita Patel MD DS: Diagnosis Discharge Diagnosis (1) Pneumothorax after biopsy: Status: Acute DS: Medications Discharge Medications Home Medications: Home Medications Medication Instructions Recorded Confirmed albuterol sulfate 90 mcg/actuation 1 inh INHALATION Q4H PRN 08/07/20 10/17/20 aerosol inhaler fluticasone furoate 200 1 inh INHALATION DAILY 08/07/20 10/17/20 mcg-vilanterol 25 mcg/dose inhalation powder ipratropium 0.5 mg-albuterol 3 mg 3 ml INHALATION QID 08/07/20 10/17/20 (2.5 mg base)/3 mL nebulization soln levothyroxine 88 mcg tablet 88 mcg PO DAILY 08/07/20 10/17/20 lisinopril 10 1 tab PO DAILY 08/07/20 10/17/20 mg-hydrochlorothiazide 12.5 mg tablet montelukast 10 mg tablet 10 mg PO DAILY 08/07/20 10/17/20 rosuvastatin 40 mg tablet 40 mg PO DAILY 08/07/20 10/17/20 tiotropium bromide 2.5 1 inh INHALATION DAILY 08/07/20 10/17/20 mcg/actuation mist for inhalation Previous Rx's Medication Instructions Recorded diltiazem HCl 180 mg 180 mg PO DAILY 90 Days #90 cap 06/25/20 capsule,extended release 24 hr apixaban 5 mg tablet 5 mg PO BID 90 Days #180 tab 07/22/20 acetaminophen 975 mg PO Q6H 30 Days #360 tab 10/19/20 docusate sodium 100 mg PO BID 14 Days #28 cap 10/19/20 hydrochlorothiazide 12.5 mg PO DAILY 30 Days #30 tab 10/19/20 lisinopril 10 mg PO DAILY 30 Days #30 tab 10/19/20 oxycodone 5 - 10 mg PO Q4H PRN #30 tab 10/19/20 sennosides [Senna Lax] 17.2 mg PO BEDTIME PRN 14 Days tab 10/19/20 DS: Summary Hospital Course Hospital Course: Patient is a 70 y.o. female with a past medical hx of Afib (on Eliquis), HTN, COPD, Asthma, Emphysema, and pre diabetes who was admitted to [facility] on 10/17/20 following an IR bx of a suspicious LLL nodule which subsequently caused a left apical pneumothorax. IR placed a left anterior pigtail dressing and Thoracic Surgery admitted under our service to manage her chest tube and follow the apical pneumothorax. Her tube was placed to -20cm continuous LWS on admission. Serial x-rays were performed and patient subsequently underwent a clamping trial on 10/19/20 to assess for worsening SQ air or PTX. Patient tolerated well and CXR remained stable. Left chest tube unclamped to assess for espinosa of air/leak. No leak identified and chest tube removed. Her hospitalization was overall uneventful aside from two episodes of Afib w/ RVR in to the 160's that were not sustained and related to anxiety/nervousness . No intervention was required and patient transitioned back to NSR. She continues on her Afib medications and Eliquis remains on hold due to recent Bx and chest tube placement. She will restart her Eliquis on 10/22/20. Initially a script was written for Oxycodone for pain on discharge but patient does not want this. She may call our office if she needs additional pain meds aside from Tylenol. She should resume all home medications. Patient will call Thoracic Surgery office to set up a telehealth appointment with Dr. Gonzales to discuss path report of LLL nodule bx. Patient advised to call with any additional questions or concerns. Status at Discharge Functional status at discharge: independent ambulation Overall status at discharge: patient is back to baseline Time Spent with Patient Time attestation: Total time spent providing and/or coordinating discharge services: Discharge coordination time: Less than 30 minutes Quality: VTE Documentation of Mechanical Device: Intermittent pneumatic compression sleeve (Patient refused Heparin shots and encouraged to ambulate 3-4 times daily and agreeable) Physical Exam Vital Signs: Vital Signs: Last Vital Signs Temp 98.2 F 10/19/20 08:00 Pulse 104 H 10/19/20 09:00 Resp 18 10/19/20 08:00 BP 154/102 H 10/19/20 09:00 Pulse Ox 93 10/19/20 08:00 Oxygen Flow Rate 2 10/18/20 05:05 Body Mass Index 20.4 Const: General: cooperative, healthy appearing, no acute distress, alert and awake Orientation/consciousness: oriented to person, oriented to place, oriented to time and patient oriented x3 HENMT: Head: Yes normal to inspection, Yes normocephalic and Yes atraumatic Eyes: General: appearance normal, both eyes and all related structures Neck: Neck: Yes normal visual inspection, Yes no lymphadenopathy, Yes trachea midline, Yes supple, No tracheal deviation and Yes no JVD Lymphatic: no lymphadenopathy noted Chest: Chest palpation & inspection: normal inspection of the chest and no crepitus Resp: Other: Left anterior pigtail chest tube clamped at the time of my exam. Chest tube unclamped to assess for air leak. No leak detected following unclamping of tube. Chest tube removed without difficulty and dry occlusive dressing placed. Patient speaking in full sentences following chest tube removal and breathing on room air. Effort & Inspection: normal respiratory effort, able to speak in complete sentences, no cough, no respiratory distress, no retractions, not tachypneic, no tracheal deviation, no use of accessory muscles and symmetric chest movement Cardio: Jugular venous distension: no JVD Palpation: normal PMI Rate: regular rate Rhythm: regular rhythm Heart sounds: S1 normal heart sound present, S2 normal heart sound present, no click, no gallops, no murmurs and no rubs Peripheral pulses: Peripheral pulses 2+ throughout GI: Inspection: Yes normal to inspection and No distended Palpation (GI): Soft to palpation, nontender, no guarding and not rigid Auscultation: normal bowel sounds Skin: General skin exam: no rashes or lesions noted and dry skin Neuro: General: oriented to person, oriented to place, oriented to time and patient oriented x3 Speech: No Abnormal speech present Extrem: General: Yes normal to inspection, Yes capillary refill normal, Yes no clubbing, cyanosis or edema and Yes no pedal edema Psych: Appearance: grossly normal and well kempt Mental Status: mental status grossly normal Speech and movement: Normal speech and movement present Affect: normal affect Attitude: cooperative Thought process: Normal thought process present Insight: Good insight present (Psych) Discharge Plan Discharge Anticipated Discharge Date/Time: 10/19/20 11:48 Patient Disposition: Home, Self-Care Discharge Diagnosis: Left pneumothorax s/p IR bx Referrals: Nikita Patel MD [Primary Care Provider] - 1 Week Discharge Medications: New sennosides [Senna Lax] 8.6 mg Tablet 17.2 mg PO BEDTIME PRN (Reason: Constipation) 14 Days RF: 0 acetaminophen 325 mg Tablet 975 mg PO Q6H 30 Days Qty: 360 RF: 0 lisinopril 10 mg Tablet 10 mg PO DAILY 30 Days Qty: 30 RF: 0 docusate sodium 100 mg Capsule 100 mg PO BID 14 Days Qty: 28 RF: 0 oxycodone 5 mg Tablet 5 - 10 mg PO Q4H PRN (Reason: Pain, Severe) Qty: 30 RF: 0 hydrochlorothiazide 12.5 mg Tablet 12.5 mg PO DAILY 30 Days Qty: 30 RF: 0 Continued diltiazem HCl 180 mg capsule,extended release 24hr 180 mg PO DAILY 90 Days Qty: 90 RF: 1 lisinopril-hydrochlorothiazide 10-12.5 mg tablet 1 tab PO DAILY RF: 0 rosuvastatin 40 mg tablet 40 mg PO DAILY RF: 0 levothyroxine 88 mcg tablet 88 mcg PO DAILY RF: 0 montelukast 10 mg tablet 10 mg PO DAILY RF: 0 fluticasone furoate-vilanterol 200-25 mcg/dose blister with device 1 inh inhalation DAILY RF: 0 tiotropium bromide 2.5 mcg/actuation mist 1 inh inhalation DAILY RF: 0 ipratropium-albuterol 0.5 mg-3 mg(2.5 mg base)/3 mL solution for nebulization 3 ml inhalation QID RF: 0 albuterol sulfate 90 mcg/actuation HFA aerosol inhaler 1 inh inhalation Q4H PRN (Reason: Shortness Of Breath) RF: 0 Held Eliquis 5 mg tablet 5 mg PO BID 90 Days Qty: 180 RF: 3 Hold Instructions: Resume on 10/22/20. Discharge Orders: Discharge Order (Routine); Ordered 10/19/20 Ordered By: Julianna Reese Diet: advance to usual diet Activity on Discharge: As tolerated Stand Alone Forms: Patient Portal Discharge page Care Plan Goals: Wound care instructions: * Chest tube occlusive dressing should remain in place for the next 48 hours. You may remove this dressing on Wednesday10/21/20 * You may shower once the dressing is removed * Leave open to air once dressing is removed * Sponge bath following your discharge for the first 48 hours until dressing is removed Activity: * Ambulate 3-4 times daily * No heavy lifting greater than 10lbs for the first two weeks following discharge Nutrition: * Follow diet as usual Medications: * NO ELIQUIS UNTIL 10/22/20 * You may resume on Wednesday10/22/20 * You have been prescribed stool softeners and pain medications as needed for pain CALL 911 or go to Emergency Room: * If you exhibit severe shortness of breath or respiratory distress * Chest pain * Infection to chest tube site * You are having difficulty breathing Follow-up appointments: * Call [facility] office to re-schedule your appointment with Dr. Gonzales to discuss the biopsy results at [phone] * Located at: [address] [place] [address] Health Concerns: None Plan of Treatment: Ambulate as tolerated Assessment: Doing well s/p clamping trial Patient Instructions: Spontaneous Pneumothorax (GEN)
== END 2020-10-19 14:00 | disposition home or self-care (01) | DRG 201 ==
LOC: HO.ED 18:36 → HO.EDOVER 20:36 → HO.IMC 22:30
PROVIDERS: Nurse Practitioner Family; Admitting Provider Surgery; Emergency Provider Internal Medicine; PCP Internal Medicine; Visit Provider Surgery
DX: J95.811 Postprocedural pneumothorax (principal); J44.9 Chronic obstructive pulmonary disease, unspecified; E78.5 Hyperlipidemia, unspecified; Z20.822 Contact with and (suspected) exposure to COVID-19; Z87.891 Personal history of nicotine dependence; Z79.01 Long term (current) use of anticoagulants; Z79.51 Long term (current) use of inhaled steroids; Z79.899 Other long term (current) drug therapy
CPT/HCPCS: 32408; 32551; 36415; 71045; 77012; 80048; 81210; 81235; 83735; 85025; 85610; 85730; 87635; 88305; 88333; 88341; 88342; 88360; 88377; 93005; 96374; 99152; 99153; 99285; C1729; J1885; J2250; J3010; Q4186

== ENCOUNTER → 2020-10-25 09:08 | Outpatient (BNVA) | payer MEDICARE, SELFPAY | PROVIDERS: PCP Internal Medicine; Visit Provider Surgery | DX: C34.32 Malignant neoplasm of lower lobe, left bronchus or lung (principal); J95.811 Postprocedural pneumothorax; Z79.899 Other long term (current) drug therapy; Z79.01 Long term (current) use of anticoagulants; Z87.891 Personal history of nicotine dependence; Z85.3 Personal history of malignant neoplasm of breast | CPT/HCPCS: 99212 ==

== ENCOUNTER 2021-02-28 11:28 | Outpatient (REF) | payer MEDICARE, SELFPAY ==
[2021-02-28 11:32] LABS: MANUAL DIFF FLAG NO
[2021-02-28 11:41] LABS: Basophils Percent Auto 0.4 % (0-2); Hematocrit 42.8 % (37-47); Imm Gran Abs Auto 0.03 X10*3/uL (0.00-0.03); Imm Gran Pct Auto 0.4 % (0.0-0.4); Mean Corpuscular HGB Conc 32.7 g/dl (31.0-35.0); Mean Corpuscular Hemoglobin 28.2 pg (27.0-33.0); Mean Corpuscular Volume 86.1 fL (80-98); Monocytes Absolute Auto 0.6 X10*3/uL (0.1-1.2); Monocytes Percent Auto 8.2 % (2-11); Neutrophils Absolute Auto 6.1 X10*3/uL (2.0-8.3); Platelet Count 341 X10*3/uL (160-400); Red Blood Count 4.97 X10*6/uL (4.20-5.50); White Blood Count 7.8 X10*3/uL (4.8-10.8)
[2021-02-28 11:45] LABS: Estimated Average Glucose 148 mg/dL; Hemoglobin A1c % 6.8 %
[2021-02-28 12:05] LABS: Appearance Urine CLEAR; Color Urine YELLOW; Glucose Urine UA NEG (NEG); Leukocyte Esterase Urine TRACE (NEG); Nitrite Urine NEG (NEG); PH 6.5 (5.0-8.0); Specific Gravity - Urine 1.015 (1.005-1.025); Urine Blood NEG (NEG); Urine Ketones NEG (NEG); Urine Protein TRACE MG/DL (NEG-TRACE)
[2021-02-28 12:12] LABS: Alanine Aminotransferase 16 U/L (0-31); Albumin Level 4.3 g/dL (3.5-5.0); Alkaline Phosphatase 110 U/L (39-117); Anion Gap 15 (12-20); Aspartate Amino Transferase 19 U/L (5-31); Bilirubin Total 0.5 mg/dL (0.0-1.0); Blood Urea Nitrogen 18 mg/dL (9-16); Calcium 10.4 mg/dL (8.4-10.2); Carbon Dioxide 26 mmol/L (22-29); Chloride 97 mmol/L (96-108); Cholesterol 198 mg/dL; Estimated Glomerular Filt Rate > 60; Glucose Fasting 144 mg/dL (60-99); HDL Cholesterol 62 mg/dL; LDL Cholesterol Calculated 113 mg/dl; Potassium 3.9 mmol/L (3.3-5.1); Sodium 134 mmol/L (135-145); Total Protein 7.1 g/dL (6.5-8.0); Triglycerides 116 mg/dL
[2021-02-28 12:20] LABS: Creatinine Urine 88.86 mg/dL
[2021-02-28 12:22] LABS: TSH reflex Free T4 1.45 uIU/mL (0.32-4.0)
[2021-02-28 12:47] LABS: Amorphous Sediment Urine 1+ /LPF; Bacteria Urine TRACE /LPF; RBC Urine 0 /HPF (0); Renal Epithelial Cells Urine TRACE /LPF; Squamous Epithelial Cell Urine TRACE /LPF; WBC Urine 0-2 /HPF (0-4)
== END 2021-02-28 11:29 | disposition home or self-care (01) ==
LOC: HO.LNP 11:28
PROVIDERS: Visit Provider Internal Medicine
DX: E78.00 Pure hypercholesterolemia, unspecified (principal); I10 Essential (primary) hypertension; E03.9 Hypothyroidism, unspecified; R73.03 Prediabetes
CPT/HCPCS: 80053; 80061; 81001; 81003; 82043; 83036; 84443; 85025

== ENCOUNTER → 2021-06-02 13:15 | Outpatient (REF) | payer MEDICARE, SELFPAY ==
--- NOTE | 2021-06-02 13:35 | ECG_ITS ---
Hook-up date: 2021-06-02 13:46:00 Duration: 47:59:00 Test Indications: PAF Medications: [id number] QRS complexes 36 Ventricular ectopics which represent <1 % of total QRS comp. 1354 Supraventricular ectopics which represent <1 % of total QRS comp. * Paced QRS complexs which represent % of total QRS comp. VENTRICULAR ECTOPY 29 Isolated 0 Bigeminal Cycles 1 Couplets 1 Runs 5 Beats in Runs 5 Beats LONGEST at 148 BPM at 08:12:51 2021-06-03 5 Beats FASTEST at 148 BPM at 08:12:51 2021-06-03 SUPRAVENTRICULAR ECTOPY 1294 Isolated 16 Couplets 7 Runs 28 Beats in Runs 9 Beats LONGEST at 149 BPM at 17:55:00 2021-06-02 3 Beats FASTEST at 174 BPM at 10:23:36 2021-06-03 HEART RATES 51 MIN at 22:02:37 2021-06-02 81 AVG 138 MAX at 13:43:28 2021-06-03 LONGEST RR 1.1760 secs at 02:07:40 2021-06-03 S-T LEVELS Channel 1 - 128 mm at 13:46:00 2021-06-02 - 128 mm at 13:46:00 2021-06-02 Channel 2 - 128 mm at 13:46:00 2021-06-02 - 128 mm at 13:46:00 2021-06-02 Channel 3 - 128 mm at 03:30:51 -- - 128 mm at 03:30:51 Basic rhythm Normal sinus rhythm No long pause or profound bradycardia One 5 beat NSVT at 148 bpm Occasional Premature atrial complexes Few short bursts of SVT, longest 9 beats Patient did not report any symptoms in the diary Referred By: Quinten Shook Overread By: DANIAL JUNIOR MD
== END ==
LOC: HO.CARD 13:15
PROVIDERS: PCP Internal Medicine; Visit Provider Internal Medicine
DX: I48.0 Paroxysmal atrial fibrillation (principal); I49.3 Ventricular premature depolarization
CPT/HCPCS: 93225; 93226

== ENCOUNTER → 2021-07-09 12:48 | Outpatient (REF) | payer MEDICARE, SELFPAY ==
--- NOTE | 2021-07-09 12:51 | CA_ITS ---
Transthoracic Echocardiogram Patient (Last, First, Middle): Rizwana Arteaga M Gender: Female Date of : 1950 Age: 71 Procedure Date: 07/09/2021 Procedure Type: Transthoracic Echocardiogram Location: OP Height: 162.56 cm Weight: 54.89 kg BSA: 1.58 m2 Heart Rate: bpm BP: 160 / 55 mmHg Box Annealer: DANNI Referring MD: Quinten Shook MD Symptoms: I48.0 - Paroxysmal atrial fibrillation Study Quality: Fair Conclusions: - 1. Normal LV systolic function with impaired relaxation filling pattern 2. Trivial aortic regurgitation 3. Borderline RV systolic pressure 4. Small pericardial effusion near the right-sided chambers Findings Left Ventricle Normal left ventricular size, thickness, and systolic function. The visually estimated ejection fraction is between 60-65%. Spectral Doppler is indicative of an impaired relaxation filling pattern. Right Ventricle Normal right ventricular cavity size and systolic function. Atria The left atrium is normal in size. Interatrial shunt cannot be excluded. The right atrium is normal in size. Aortic Valve There is mild calcification of the aortic valve. There is no aortic valve stenosis. There is trace (trivial) aortic valve regurgitation. Mitral Valve There is mild anterior and posterior mitral leaflet thickening. There is trace mitral valve regurgitation. There is no mitral valve stenosis. Pulmonic Valve The pulmonic valve was not well visualized. Tricuspid Valve Likely normal tricuspid valve structure and function. There is mild tricuspid valve regurgitation. The right ventricular systolic pressure is normal. There is no evidence of pulmonary hypertension. Great Vessels All visible segments of the aorta are normal in size. The pulmonary artery was not well visualized. Venous The inferior vena cava is normal in size and collapses greater than 50% with inspiration. Pericardium/Pleural There is a small loculated pericardial effusion overlying the right ventricle and right atrium. Prior Study Comparison Changes noted compared to prior study dated: 07/26/2019. Trace aortic regurgitation is present Measurements 2D Linear Measurements IVSd: 0.95 0.6-0.9/0.6-1.0 cm LVIDd: 3.38 3.9-5.3/4.2-5.9 cm LVIDd Index: 2.14 2.4-3.2/2.2-3.1 cm/m2 LVIDs: 2.05 2.0-3.6 cm LVPWd: 0.91 0.7-1.1 cm Ao Root: 3.20 2.1-3.5 cm LA Diam: 2.70 2.7-3.8/3.0-4.0 cm LAIDs Index: 1.71 1.5-2.3 cm/m2 LV Mass: 109.05 67-162/88-224 g LV Mass Index: 69.02 43-95/49-115 g/m2 LVOT Diam: 2.00 3.0+(-)1.3 cm 2D Systolic Function EF 4C: 72.20 >55% EF 2C: 60.80 >55% EF BiP: 66.90 >55% Mitral Valve MV Pk E: 0.97 MV PK A: 1.00 MV Decel Time: 240.00 E/A: 1.00 E'Lateral: 7.62 E'Medial: 6.53 E/E' Med: 14.80 E/E' Lat: 12.70 PHT: 70.00 MVA PHT: 3.14 Decel Cross: 4.02 Aortic Valve AoV Pk Tony: 1.36 AoV Mn Tony: 1.01 AoV VTI: 0.30 AoV Pk Grad: 7.00 Aov Mn Grad: 4.00 SHERRY Cont.VTI: 2.55 LVOT LVOT Pk Tony: 1.08 LVOT Mn Tony: 0.81 LVOT VTI: 0.24 LVOT Pk Grad: 5.00 LVOT Mn Grad: 3.00 LVOT Diam: 2.00 LVOT Area: 3.14 Diastolic Function MV Pk E: 0.97 MV Pk A: 1.00 E/A: 1.00 E'Medial: 6.53 E/E' Med: 14.80 E' Laterial: 7.62 E/E' Lat: 12.70 Right Ventricle TAPSE (mm): 21.50 TVS' Tony: 11.00 Tricuspid Valve TR Pk Tony: 2.97 TR Pk Grad: 35.00 RA Press: 3.00 RVSP: 38.00 Great Vessels Aorta Ao Root-2D: 3.20 2.0-3.7 cm Ao Asc: 2.80 2.1-3.4 cm Updated in Other Vendor System with Status of Final Rip Kelly MD electronically signed on 07/09/2021 2:56:19 PM with status of Final
== END ==
LOC: HO.CARD 12:48
PROVIDERS: Visit Provider Internal Medicine
DX: I48.0 Paroxysmal atrial fibrillation (principal); I49.3 Ventricular premature depolarization
CPT/HCPCS: 93306

== ENCOUNTER → 2021-08-21 09:00 | Outpatient (BNVA) | payer MEDICARE, SELFPAY | PROVIDERS: PCP Internal Medicine; Referring Provider Internal Medicine; Visit Provider Internal Medicine | DX: I48.0 Paroxysmal atrial fibrillation (principal); I49.3 Ventricular premature depolarization; I10 Essential (primary) hypertension | CPT/HCPCS: 93005; 99212 ==

== ENCOUNTER 2021-09-26 10:33 | Outpatient (REF) | payer MEDICARE, SELFPAY ==
[2021-09-26 11:39] LABS: Estimated Average Glucose 140 mg/dL; Hemoglobin A1c % 6.5 %
[2021-09-26 11:49] LABS: Alanine Aminotransferase 23 U/L (0-31); Albumin Level 4.1 g/dL (3.5-5.0); Alkaline Phosphatase 84 U/L (39-117); Aspartate Amino Transferase 24 U/L (5-31); Bilirubin Direct 0.2 mg/dL (0.0-0.5); Bilirubin Total 0.4 mg/dL (0.0-1.0); Cholesterol 194 mg/dL; Glucose Fasting 152 mg/dL (60-99); HDL Cholesterol 56 mg/dL; LDL Cholesterol Calculated 112 mg/dl; Total Protein 6.9 g/dL (6.5-8.0); Triglycerides 130 mg/dL
[2021-09-26 12:41] LABS: Reflex LDLD? No
== END 2021-09-26 10:34 | disposition home or self-care (01) ==
LOC: HO.LNP 10:33
PROVIDERS: Visit Provider Internal Medicine
DX: E11.9 Type 2 diabetes mellitus without complications (principal); E78.00 Pure hypercholesterolemia, unspecified
CPT/HCPCS: 80061; 80076; 82947; 83036

== ENCOUNTER 2022-03-02 11:47 | Outpatient (REF) | payer MEDICARE, SELFPAY ==
[2022-03-02 11:51] LABS: MANUAL DIFF FLAG NO
[2022-03-02 12:17] LABS: Basophils Percent Auto 0.5 % (0-2); Eosinophils Absolute Auto 0.1 X10*3/uL (0.0-0.4); Eosinophils Percent Auto 1.7 % (0-4); Hematocrit 44.6 % (37.0-47.0); Hemoglobin 14.8 g/dl (12.0-16.0); Imm Gran Abs Auto 0.03 X10*3/uL (0.00-0.03); Imm Gran Pct Auto 0.4 % (0.0-0.4); Lymphocytes Absolute Auto 1.2 X10*3/uL (1.2-4.9); Lymphocytes Percent Auto 15.7 % (20-40); Mean Corpuscular HGB Conc 33.2 g/dl (31.0-35.0); Mean Corpuscular Hemoglobin 28.8 pg (27.0-33.0); Mean Corpuscular Volume 86.8 fL (80.0-98.0); Monocytes Absolute Auto 0.7 X10*3/uL (0.1-1.2); Monocytes Percent Auto 8.9 % (2-11); Neutrophils Absolute Auto 5.6 x10*3/uL (2.0-8.3); Neutrophils Percent Auto 72.8 % (45-73); Platelet Count 340 X10*3/uL (160-400); Red Blood Count 5.14 X10*6/uL (4.20-5.50); White Blood Count 7.7 X10*3/uL (4.8-10.8)
[2022-03-02 12:28] LABS: Alanine Aminotransferase 21 U/L (0-31); Albumin Level 4.4 g/dL (3.5-5.0); Alkaline Phosphatase 86 U/L (39-117); Anion Gap 17 (12-20); Aspartate Amino Transferase 21 U/L (5-31); Bilirubin Total 0.4 mg/dL (0.0-1.0); Blood Urea Nitrogen 19 mg/dL (9-16); Calcium 9.8 mg/dL (8.4-10.2); Carbon Dioxide 26 mmol/L (22-29); Chloride 98 mmol/L (96-108); Estimated Glomerular Filt Rate 58; Glucose Fasting 139 mg/dL (60-99); Potassium 4.2 mmol/L (3.3-5.1); Sodium 137 mmol/L (135-145); Total Protein 7.3 g/dL (6.5-8.0)
[2022-03-02 12:35] LABS: Estimated Average Glucose 137 mg/dL; Hemoglobin A1c % 6.4 %
[2022-03-02 12:52] LABS: TSH reflex Free T4 1.05 uIU/mL (0.32-4.0); Vitamin D 25-OH Total 53.9 ng/mL (>30)
== END 2022-03-02 11:48 | disposition home or self-care (01) ==
LOC: HO.LNP 11:47
PROVIDERS: Visit Provider Internal Medicine
DX: I10 Essential (primary) hypertension (principal); E03.9 Hypothyroidism, unspecified; E78.00 Pure hypercholesterolemia, unspecified; E55.9 Vitamin D deficiency, unspecified; E11.9 Type 2 diabetes mellitus without complications
CPT/HCPCS: 80053; 82306; 83036; 84443; 85025

== ENCOUNTER → 2022-08-19 08:08 | Outpatient (BNVA) | payer MEDICARE, SELFPAY | PROVIDERS: PCP Internal Medicine; Referring Provider Internal Medicine; Visit Provider Internal Medicine | DX: I48.0 Paroxysmal atrial fibrillation (principal); I49.3 Ventricular premature depolarization; I10 Essential (primary) hypertension; I25.10 Atherosclerotic heart disease of native coronary artery without angina pectoris | CPT/HCPCS: 93005; 99212 ==

== ENCOUNTER 2022-08-27 10:54 | Outpatient (REF) | payer MEDICARE, SELFPAY ==
[2022-08-27 15:13] LABS: Anion Gap 12 (12-20); Blood Urea Nitrogen 18 mg/dL (9-16); Calcium 9.3 mg/dL (8.4-10.2); Carbon Dioxide 27 mmol/L (22-29); Chloride 98 mmol/L (96-108); Estimated Glomerular Filt Rate > 60; Glucose Random 117 mg/dL (60-115); Potassium 4.4 mmol/L (3.3-5.1); Sodium 133 mmol/L (135-145)
== END 2022-08-27 10:55 | disposition home or self-care (01) ==
LOC: HO.10HDL 10:54
PROVIDERS: Visit Provider Internal Medicine
DX: I25.10 Atherosclerotic heart disease of native coronary artery without angina pectoris (principal)
CPT/HCPCS: 36415; 80048

== ENCOUNTER 2022-09-04 10:53 | Outpatient (REF) | payer MEDICARE, SELFPAY ==
[2022-09-04 11:52] LABS: Estimated Average Glucose 143 mg/dL; Hemoglobin A1c % 6.6 %
[2022-09-04 12:11] LABS: Alanine Aminotransferase 20 U/L (0-31); Albumin Level 4.3 g/dL (3.5-5.0); Alkaline Phosphatase 104 U/L (39-117); Aspartate Amino Transferase 23 U/L (5-31); Bilirubin Direct < 0.2 mg/dL (0.0-0.5); Bilirubin Total 0.5 mg/dL (0.0-1.0); Cholesterol 216 mg/dL; Glucose Fasting 145 mg/dL (60-99); HDL Cholesterol 62 mg/dL; LDL Cholesterol Calculated 128 mg/dl; Total Protein 7.3 g/dL (6.5-8.0); Triglycerides 130 mg/dL
[2022-09-04 12:18] LABS: Reflex LDLD? No
== END 2022-09-04 10:54 | disposition home or self-care (01) ==
LOC: HO.LNP 10:53
PROVIDERS: Visit Provider Internal Medicine
DX: E78.00 Pure hypercholesterolemia, unspecified (principal); E11.9 Type 2 diabetes mellitus without complications
CPT/HCPCS: 80061; 80076; 82947; 83036

== ENCOUNTER → 2022-10-14 09:18 | Outpatient (BNVA) | payer MEDICARE, SELFPAY | PROVIDERS: PCP Internal Medicine; Referring Provider Internal Medicine; Visit Provider Internal Medicine ==

== ENCOUNTER → 2022-11-23 08:34 | Outpatient (BNVA) | payer MEDICARE, SELFPAY | PROVIDERS: PCP Internal Medicine; Referring Provider Internal Medicine; Visit Provider Internal Medicine | DX: I25.10 Atherosclerotic heart disease of native coronary artery without angina pectoris (principal); I48.0 Paroxysmal atrial fibrillation; I49.3 Ventricular premature depolarization; I10 Essential (primary) hypertension | CPT/HCPCS: 99212 ==

== ENCOUNTER 2023-03-04 13:53 | Outpatient (REF) | payer MEDICARE, SELFPAY ==
[2023-03-04 14:17] LABS: MANUAL DIFF FLAG NO
[2023-03-04 14:23] LABS: Basophils Absolute Auto 0.1 X10*3/uL (0.0-0.2); Basophils Percent Auto 0.6 % (0-2); Eosinophils Absolute Auto 0.1 X10*3/uL (0.0-0.4); Eosinophils Percent Auto 0.8 % (0-4); Hematocrit 43.6 % (37.0-47.0); Hemoglobin 14.1 g/dl (12.0-16.0); Imm Gran Abs Auto 0.03 X10*3/uL (0.00-0.03); Imm Gran Pct Auto 0.3 % (0.0-0.4); Lymphocytes Absolute Auto 1.5 X10*3/uL (1.2-4.9); Lymphocytes Percent Auto 15.3 % (20-40); Mean Corpuscular HGB Conc 32.3 g/dl (31.0-35.0); Mean Corpuscular Hemoglobin 28.8 pg (27.0-33.0); Mean Corpuscular Volume 89.2 fL (80.0-98.0); Mean Platelet Volume 8.9 fL (9.4-12.3); Monocytes Absolute Auto 0.7 X10*3/uL (0.1-1.2); Monocytes Percent Auto 7.5 % (2-11); Neutrophils Absolute Auto 7.4 x10*3/uL (2.0-8.3); Neutrophils Percent Auto 75.5 % (45-73); Platelet Count 390 X10*3/uL (160-400); Red Blood Count 4.89 X10*6/uL (4.20-5.50); Red Cell Distribution Width 13.3 % (11.0-16.0); White Blood Count 9.8 X10*3/uL (4.8-10.8)
[2023-03-04 14:39] LABS: Estimated Average Glucose 131 mg/dL; Hemoglobin A1c % 6.2 % (<6.0)
[2023-03-04 14:54] LABS: Alanine Aminotransferase 16 U/L (0-31); Albumin Level 4.4 g/dL (3.5-5.0); Alkaline Phosphatase 91 U/L (39-117); Anion Gap 14 (12-20); Aspartate Amino Transferase 21 U/L (5-31); Bilirubin Total 0.3 mg/dL (0.0-1.0); Blood Urea Nitrogen 22 mg/dL (9-16); Carbon Dioxide 24 mmol/L (22-29); Chloride 102 mmol/L (96-108); Cholesterol 147 mg/dL (<200); Estimated Glomerular Filt Rate 50; Glucose Fasting 144 mg/dL (60-99); HDL Cholesterol 71 mg/dL (>40); LDL Cholesterol Calculated 54 mg/dL (<100); Potassium 3.9 mmol/L (3.3-5.1); Sodium 136 mmol/L (135-145); Total Protein 7.6 g/dL (6.5-8.0); Triglycerides 112 mg/dL (<150)
[2023-03-04 15:02] LABS: TSH reflex Free T4 1.34 uIU/mL (0.32-4.0); Vitamin D 25-OH Total 40.3 ng/mL (>30)
== END 2023-03-04 13:54 | disposition home or self-care (01) ==
LOC: HO.LNP 13:53
PROVIDERS: Visit Provider Internal Medicine
DX: I10 Essential (primary) hypertension (principal); E03.9 Hypothyroidism, unspecified; E78.00 Pure hypercholesterolemia, unspecified; E55.9 Vitamin D deficiency, unspecified; E11.9 Type 2 diabetes mellitus without complications
CPT/HCPCS: 80053; 80061; 82306; 83036; 84443; 85025

== ENCOUNTER 2023-03-05 11:07 | Outpatient (REF) | payer MEDICARE, SELFPAY ==
[2023-03-05 12:44] LABS: Appearance Urine Clear; Color Urine Yellow; Glucose Urine UA Negative (Negative); Leukocyte Esterase Urine Trace (Negative); Nitrite Urine Negative (Negative); PH 6.5 (5.0-9.0); Specific Gravity - Urine 1.015 (1.005-1.025); UMIC TRIGGER UACC YES; Urine Blood Negative (Negative); Urine Ketones Negative (Negative); Urine Protein 30 (1+) mg/dL (Neg-Trace)
[2023-03-05 12:49] LABS: Bacteria Urine None Seen (None Seen); Hyaline Casts Urine 0-2 /LPF (0-2); Squamous Epithelial Cell Urine 0-2 /HPF (0-2); WBC Urine 0-5 /HPF (0-5)
[2023-03-05 13:05] LABS: Creatinine Urine 61.25 mg/dL; Microalbum/Creatinine Ratio Ur 137.1 ug/mg cr (<30)
== END 2023-03-05 11:08 | disposition home or self-care (01) ==
LOC: HO.LNP 11:07
PROVIDERS: Visit Provider Internal Medicine
DX: I10 Essential (primary) hypertension (principal); E03.9 Hypothyroidism, unspecified; E78.00 Pure hypercholesterolemia, unspecified; E55.9 Vitamin D deficiency, unspecified; E11.9 Type 2 diabetes mellitus without complications
CPT/HCPCS: 81001; 82043; 82570

== ENCOUNTER 2023-04-09 11:09 | Outpatient (REF) | payer MEDICARE, SELFPAY ==
[2023-04-09 12:11] LABS: Appearance Urine Clear; Color Urine Yellow; Glucose Urine UA Negative (Negative); Leukocyte Esterase Urine Small (1+) (Negative); Nitrite Urine Negative (Negative); Specific Gravity - Urine 1.015 (1.005-1.025); UMIC TRIGGER UACC YES; Urine Blood Negative (Negative); Urine Ketones Negative (Negative); Urine Protein 30 (1+) mg/dL (Neg-Trace)
[2023-04-09 12:24] LABS: Bacteria Urine None Seen (None Seen); RBC Urine 0-2 /HPF (0-2); Squamous Epithelial Cell Urine 0-2 /HPF (0-2); UACC Culture Trigger YES
== END 2023-04-09 11:10 | disposition home or self-care (01) ==
LOC: HO.LNP 11:09
PROVIDERS: Visit Provider Internal Medicine
DX: R31.9 Hematuria, unspecified (principal)
CPT/HCPCS: 81001; 87086

== ENCOUNTER 2023-09-03 11:01 | Outpatient (REF) | payer MEDICARE, SELFPAY ==
[2023-09-03 12:40] LABS: Alanine Aminotransferase 26 U/L (0-31); Albumin Level 4.2 g/dL (3.5-5.0); Alkaline Phosphatase 87 U/L (39-117); Aspartate Amino Transferase 28 U/L (5-31); Bilirubin Direct 0.1 mg/dL (0.0-0.5); Bilirubin Total 0.3 mg/dL (0.0-1.0); Cholesterol 123 mg/dL (<200); HDL Cholesterol 57 mg/dL (>40); LDL Cholesterol Calculated 45 mg/dL (<100); Total Protein 7.4 g/dL (6.5-8.0); Triglycerides 109 mg/dL (<150)
[2023-09-03 14:03] LABS: Reflex LDLD? No
== END 2023-09-03 11:02 | disposition home or self-care (01) ==
LOC: HO.LNP 11:01
PROVIDERS: Visit Provider Internal Medicine
DX: E78.00 Pure hypercholesterolemia, unspecified (principal)
CPT/HCPCS: 80061; 80076

== ENCOUNTER 2023-11-15 20:22 | Emergency (ER) | payer MEDICARE, SELFPAY ==
--- NOTE | ~2023-11-15 | XR_ITS ---
EXAMINATION: XR CHEST CLINICAL INFORMATION: Dyspnea COMPARISON: Chest radiograph 10/19/2020, CT chest 10/01/2020 TECHNIQUE: Frontal view of the chest was obtained. FINDINGS: Heart size is normal measures no evidence of CHF. No large pleural effusions or pneumothorax seen. A trace left pleural effusion could be present. The lungs are mildly hyperinflated with some increased lucency seen in the left upper lobe which could be due to a a bullae or hyperexpansion of remaining laterally there has been prior surgery. There is bibasilar atelectasis. XR/XR chest 1V IMPRESSION: No acute intrathoracic disease. Mild hyperinflation. Bibasilar atelectasis.
[2023-11-15 20:35] VITALS: BP 136/58; PULSE 128; O2SAT 95
--- NOTE | 2023-11-15 20:36 | ECG_ITS ---
Test Reason : DIFFICULTY BREATHING Blood Pressure : / mmHG Vent. Rate : 103 BPM Atrial Rate : 103 BPM P-R Int : 156 ms QRS Dur : 088 ms QT Int : 326 ms P-R-T Axes : 079 063 105 degrees QTc Int : 427 ms Artifact in tracing Sinus tachycardia with Premature atrial complexes Anterior infarct , age undetermined Abnormal ECG When compared with ECG of 18-OCT-2020 17:15, Sinus rhythm has replaced Atrial flutter Referred By: Generic ED Physician Electronically Signed By:ESDRAS HAILE
[2023-11-15 20:40] VITALS: BP 148/64; PULSE 115; RESP 19; TEMP 36.7; O2SAT 95
[2023-11-15 20:44] VITALS: BP 148/64; PULSE 107; RESP 15; TEMP 36.7; O2SAT 95; BMI 22.6
[2023-11-15 21:02] LABS: MANUAL DIFF FLAG NO
[2023-11-15 21:03] LABS: Basophils Percent Auto 0.2 % (0-2); Eosinophils Percent Auto 0.1 % (0-4); Hematocrit 36.4 % (37.0-47.0); Hemoglobin 12.8 g/dl (12.0-16.0); Imm Gran Abs Auto 0.08 X10*3/uL (0.00-0.03); Imm Gran Pct Auto 0.5 % (0.0-0.4); Lymphocytes Percent Auto 5.7 % (20-40); Mean Corpuscular HGB Conc 35.2 g/dl (31.0-35.0); Mean Corpuscular Hemoglobin 29.6 pg (27.0-33.0); Mean Corpuscular Volume 84.3 fL (80.0-98.0); Monocytes Absolute Auto 1.1 X10*3/uL (0.1-1.2); Monocytes Percent Auto 6.2 % (2-11); Neutrophils Percent Auto 87.3 % (45-73); Platelet Count 286 X10*3/uL (160-400); Red Blood Count 4.32 X10*6/uL (4.20-5.50); Red Cell Distribution Width 12.7 % (11.0-16.0); White Blood Count 17.2 X10*3/uL (4.8-10.8)
[2023-11-15] MEDS: methylPREDNISolone Sod Succ 125 MG/2 ML VIAL IVPUSH (21:05)
[2023-11-15 21:08] VITALS: PULSE 98; RESP 18; O2SAT 96
[2023-11-15] MEDS: Albuterol Sulfate 2.5 MG, Albuterol/Iprat 2.5/0.5MG 3 ML 3 ML INHALE (21:08)
[2023-11-15 21:18] LABS: Anion Gap 18 (12-20); Blood Urea Nitrogen 20 mg/dL (9-16); Calcium 9.3 mg/dL (8.4-10.2); Carbon Dioxide 19 mmol/L (22-29); Chloride 96 mmol/L (96-108); Creatinine Clr Calc Pharmacy 48.8; Estimated Glomerular Filt Rate > 60; Glucose Random 162 mg/dL (60-115); Potassium 3.9 mmol/L (3.3-5.1); Sodium 129 mmol/L (135-145)
[2023-11-15 21:38] LABS: Troponin-I High Sensitivity 58.3 ng/L (<3.5-17.0)
[2023-11-15 21:43] LABS: Influenza A PCR NEGATIVE (Negative); Influenza B PCR NEGATIVE (Negative); Resp Syncy Virus RNA Qual PCR NEGATIVE (Negative); SARS COV2 PCR INHOUSE NEGATIVE (Negative)
[2023-11-15 21:57] LABS: B Type Natriuretic Peptide 119 pg/mL (<100)
[2023-11-15 22:50] VITALS: BP 156/70; PULSE 100; RESP 12; O2SAT 94
[2023-11-15 23:53] LABS: Troponin-I High Sensitivity 59.8 ng/L (<3.5-17.0)
[2023-11-16] MEDS: Azithromycin 500 MG TABLET PO (00:02)
[2023-11-16] MEDS: cefuroxime axetiL 500 MG TABLET PO (00:02)
--- NOTE | 2023-11-16 00:37 | ED.SOB ---
HPI - SOB/Dyspnea General Chief Complaint: Dyspnea Stated Complaint: SOB Time Seen by Provider: 11/15/23 20:39 Source: patient Mode of arrival: ambulatory Limitations: no limitations History of Present Illness ED Provider: renetta AMEZQUITA Narrative: Patient is sent for years old with history of COPD/asthma AFib on Eliquis ex-smoker comes here for increased cough and wheezing for last 1 week no fever had some chills unable to get any phlegm out patient is usually pretty stable last episode like this was about 5 years ago no chest pain or palpitation no leg edema no other family member sick Related Data Home Medications ?Medication ?Instructions ?Recorded ?Confirmed albuterol sulfate 90 mcg/actuation 1 inh inhalation Q4H PRN Shortness 08/07/20 11/23/22 aerosol inhaler Of Breath fluticasone furoate 200 1 inh inhalation DAILY 08/07/20 11/23/22 mcg-vilanterol 25 mcg/dose inhalation powder ipratropium 0.5 mg-albuterol 3 mg 3 ml inhalation QID 08/07/20 11/23/22 (2.5 mg base)/3 mL nebulization soln levothyroxine 88 mcg tablet 88 mcg PO DAILY 08/07/20 11/23/22 lisinopril 10 1 tab PO DAILY 08/07/20 11/23/22 mg-hydrochlorothiazide 12.5 mg tablet montelukast 10 mg tablet 10 mg PO DAILY 08/07/20 11/23/22 rosuvastatin 40 mg tablet 40 mg PO DAILY 08/07/20 11/23/22 tiotropium bromide 2.5 1 inh inhalation DAILY 08/07/20 08/19/22 mcg/actuation mist for inhalation Previous Rx's ?Medication ?Instructions ?Recorded acetaminophen 325 mg tablet 975 mg (3 x 325 mg) PO Q6H 30 days 10/19/20 #360 tabs apixaban 5 mg tablet (Eliquis) 5 mg PO BID 90 days #180 tabs 02/18/23 diltiazem HCl 180 mg 180 mg PO DAILY 90 days #90 caps 05/24/23 capsule,extended release 24 hr evolocumab 140 mg/mL subcutaneous 140 mg subcut Q2W 30 days #3 mL 06/08/23 pen injector (Kirill Real) azithromycin 500 mg tablet 500 mg PO DAILY 3 days #3 tabs 11/16/23 (Zithromax TRI-CYNTHIA) benzonatate 200 mg capsule 200 mg PO TID PRN cough #30 caps 11/16/23 cefuroxime axetil 500 mg tablet 500 mg PO BID 7 days #14 tabs 11/16/23 prednisone 20 mg tablet 40 mg (2 x 20 mg) PO DAILY #10 tabs 11/16/23 Allergies Allergy/AdvReac Type Severity Reaction Status Date / Time moxifloxacin [From AVELOX] Allergy Severe UNKNOWN Verified 11/15/23 20:47 nickel [NICKEL] Allergy Severe RASH Verified 11/15/23 20:47 ezetimibe [From Zetia] AdvReac Severe Muscle Pain Verified 11/15/23 20:47 Review of Systems Review of Systems: Yes all other systems are reviewed and are negative [facility] Past Medical History Medical History Primary cancer of left lower lobe of lung (~09/2020) Pneumothorax of left lung after biopsy Pneumothorax after biopsy (~09/2020) Osteopenia Former smoker, stopped smoking in distant past Hyperlipidemia Hypothyroidism History of Graves' disease History of cancer of left breast Pulmonary nodule PVC (premature ventricular contraction) PAF (paroxysmal atrial fibrillation) Hypertension COPD (chronic obstructive pulmonary disease) Surgical History History of chest tube placement (~09/2020) History of lung biopsy (~09/2020) History of colonoscopy History of breast biopsy (~12/2009) History of lumpectomy (~2009) History of tubal ligation History of hysterectomy (~12/1988) History of tonsillectomy History of appendectomy Family History Family History Father No problems noted. Mother CVD (cardiovascular disease) Social History Social History Household Members: Spouse Housing: House Do you presently have visiting nurse or other home services: No Alcohol intake: former Year quit: 1999 Patient Tobacco Use Status: Former Tobacco user Quit Date: 1999 Smoked in Last 30 Days: No Use of substances other than those prescribed or required for medical reasons: No Advance Directives: No Advance Directives Information Provided: No Do you have a plan to hurt others: No Plan service: No Current occupational status: retired Physical Exam Vital Signs: Vital Signs: Last Vital Signs Temp 98.1 F 11/15/23 20:44 Pulse 100 11/15/23 22:50 Resp 12 11/15/23 22:50 BP 156/70 H 11/15/23 22:50 Pulse Ox 94 11/15/23 22:50 O2 Del Method Room Air 11/15/23 22:50 O2 Flow Rate 1 11/15/23 20:40 Oxygen Flow Rate 1 11/15/23 20:44 BMI result Body Mass Index 22.6 Appearance: Alert. Oriented X3. No acute distress. Eyes: No pallor or icterus ENT: Pharynx normal. Oral Mucosa moist Neck: Normal inspection. Neck supple. CVS: Normal heart rate and rhythm. Pulses normal. Respiratory: No respiratory distress. Equal air entry bilateral, decreased air entry bilaterally Abdomen: Soft and nontender. Bowel sounds are present, Skin: Skin warm and dry. Normal skin color. Normal skin turgor. Extremities: No lower extremity edema. No calf tenderness Neuro: Oriented X 3. Medications Administered Discontinued Medications Generic Name Dose Route Start Last Admin Trade Name Freq PRN Reason Stop Dose Admin Azithromycin 500 mg 11/15/23 23:52 11/16/23 00:02 Azithromycin 500 Mg Tablet PO 11/15/23 23:53 500 mg ONCE ONE Administration Cefuroxime Axetil 500 mg 11/15/23 23:51 11/16/23 00:02 Cefuroxime Axetil 500 Mg Tablet PO 11/15/23 23:52 500 mg ONCE ONE Administration Albuterol Sulfate 2.5 mg/ 0 mg 11/15/23 20:54 11/15/23 21:08 Albuterol/Ipratropium 3 ml INHALE 11/15/23 20:55 1 dose ONCE ONE Administration Methylprednisolone Sodium Succinate 125 mg 11/15/23 20:53 11/15/23 21:05 Methylprednisolone Sod Succ 125 Mg/2 Ml Vial IVPUSH 11/15/23 20:54 125 mg ONCE ONE Administration Medical Decision Making Medical Decision Making MDM Narrative: With asthma/COPD comes increased shortness breath saturating 95% at room air felt better after nebulizing treatment chest x-ray negative for pneumonia patient denied any chest pain no signs of CHF patient had elevated troponin repeat troponin without any delta change likely from demand ischemia/AFib Differential Diagnosis Differential Diagnoses: The differential diagnosis associated with the presentation includes Admission/Observation Consideration of admission/observation: Escalation of care including admission/observation considered Lab Data MDM Lab Attestation statement: I reviewed the patient's lab results. 11/15/23 20:57 11/15/23 20:57 Labs: Lab Results 11/15/23 11/15/23 Range/Units 20:57 23:23 WBC 17.2 H (4.8-10.8) X10*3/uL RBC 4.32 (4.20-5.50) X10*6/uL Hgb 12.8 (12.0-16.0) g/dl Hct 36.4 L (37.0-47.0) % MCV 84.3 (80.0-98.0) fL MCH 29.6 (27.0-33.0) pg MCHC 35.2 H (31.0-35.0) g/dl RDW 12.7 (11.0-16.0) % Plt Count 286 D (160-400) X10*3/uL MPV 8.0 L (9.4-12.3) fL Immature Gran % (Auto) 0.5 H (0.0-0.4) % Neut % (Auto) 87.3 H (45-73) % Lymph % (Auto) 5.7 L (20-40) % [place] % (Auto) 6.2 (2-11) % Eos % (Auto) 0.1 (0-4) % Baso % (Auto) 0.2 (0-2) % Lymph # (Auto) 1.0 L (1.2-4.9) X10*3/uL [place] # (Auto) 1.1 (0.1-1.2) X10*3/uL Eos # (Auto) 0.0 (0.0-0.4) X10*3/uL Baso # (Auto) 0.0 (0.0-0.2) X10*3/uL Abs Immat Gran (auto) 0.08 H (0.00-0.03) X10*3/uL Absolute Neuts (auto) 15.0 H (2.0-8.3) x10*3/uL Absolute Nucleated RBC 0.000 (0.0-0.012) X10*3/uL Nucleated RBC % (auto) 0.0 (0.0-0.2) /100WBC Sodium 129 L (135-145) mmol/L Potassium 3.9 (3.3-5.1) mmol/L Chloride 96 (96-108) mmol/L Carbon Dioxide 19 L (22-29) mmol/L Anion Gap 18 (12-20) BUN 20 H (9-16) mg/dL Creatinine 0.86 (0.5-1.4) mg/dL Estim Creat Clear Calc 48.8 Estimated GFR > 60 Random Glucose 162 H (60-115) mg/dL Calcium 9.3 D (8.4-10.2) mg/dL Troponin I High Sens 58.3 H* 59.8 H* (<3.5-17.0) ng/L B-Natriuretic Peptide 119 H (<100) pg/mL Influenza Type A (PCR) NEGATIVE (Negative) Influenza Type B (PCR) NEGATIVE (Negative) RSV RNA Qual (PCR) NEGATIVE (Negative) SARS-CoV-2 RNA (RT-PCR) NEGATIVE (Negative) Independent Interpretation I performed an independent interpretation of an: EKG Interpretation: Sinus tachycardia heart rate 103 beats per minute poor progression of R-wave no acute STT wave changes no acute ischemia Discharge Plan Discharge Clinical Impression: Acute exacerbation of chronic obstructive airways disease Patient Disposition: Home, Self-Care Instructions: COPD (Chronic Obstructive Pulmonary Disease) (ED) Additional Instructions: Continue to use nebulizer treatment every 4-6 hours as needed Antibiotic as prescribed Cough drops and prednisone as prescribed Follow with your PCP if not better Prescriptions: New benzonatate 200 mg capsule 200 mg PO TID PRN (Reason: cough) Qty: 30 0RF cefuroxime axetil 500 mg tablet 500 mg PO BID 7 Days Qty: 14 0RF azithromycin [Zithromax TRI-CYNTHIA] 500 mg tablet 500 mg PO DAILY 3 Days Qty: 3 0RF prednisone 20 mg tablet 40 mg PO DAILY Qty: 10 0RF No Action Eliquis 5 mg tablet 5 mg PO BID 90 Days Qty: 180 3RF Hold Instructions: Resume on 10/22/20. diltiazem HCl 180 mg capsule,extended release 24hr 180 mg PO DAILY 90 Days Qty: 90 3RF Repatha SureClick 140 mg/mL pen injector 140 mg subcut Q2W 30 Days Qty: 3 5RF Rx Instructions: Approved 09/08/22-10/07/24 acetaminophen 325 mg Tablet 975 mg PO Q6H 30 Days Qty: 360 0RF lisinopril-hydrochlorothiazide 10-12.5 mg tablet 1 tab PO DAILY rosuvastatin 40 mg tablet 40 mg PO DAILY levothyroxine 88 mcg tablet 88 mcg PO DAILY montelukast 10 mg tablet 10 mg PO DAILY fluticasone furoate-vilanterol 200-25 mcg/dose blister with device 1 inh inhalation DAILY tiotropium bromide 2.5 mcg/actuation mist 1 inh inhalation DAILY ipratropium-albuterol 0.5 mg-3 mg(2.5 mg base)/3 mL solution for nebulization 3 ml inhalation QID albuterol sulfate 90 mcg/actuation HFA aerosol inhaler 1 inh inhalation Q4H PRN (Reason: Shortness Of Breath) Interventions: ED Discharge Assessment Last Done: 11/16/23 00:42 Print Language: Citizen Of [place]
[2023-11-16 00:42] VITALS: BP 143/88; PULSE 101; RESP 13; TEMP 36.7; O2SAT 97
== END 2023-11-16 00:30 | disposition home or self-care (01) ==
PROVIDERS: Emergency Provider Internal Medicine; PCP Internal Medicine
DX: J44.1 Chronic obstructive pulmonary disease with (acute) exacerbation (principal); I48.0 Paroxysmal atrial fibrillation; I10 Essential (primary) hypertension; Z85.118 Personal history of other malignant neoplasm of bronchus and lung; Z79.01 Long term (current) use of anticoagulants
CPT/HCPCS: 0241U; 36415; 71045; 80048; 83880; 84484; 85025; 93005; 94640; 96374; 99284; 99285; J2919

== ENCOUNTER → 2023-11-15 20:36 | Outpatient (BNV) | payer MEDICARE, SELFPAY | PROVIDERS: Emergency Provider Internal Medicine; PCP Internal Medicine; Visit Provider Internal Medicine | DX: R94.31 Abnormal electrocardiogram [ECG] [EKG] (principal) | CPT/HCPCS: 93010 ==

== ENCOUNTER 2024-01-05 08:12 | Outpatient (AMB) | payer MEDICARE, SELFPAY ==
--- NOTE | 2024-01-05 08:24 | A.OFFVIS_ITS ---
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 Required: No Accompanied by: Self / Same As Patient Allergies moxifloxacin [From AVELOX] Allergy (Severe, Verified 11/15/23 20:47) UNKNOWN nickel [NICKEL] Allergy (Severe, Verified 11/15/23 20:47) RASH ezetimibe [From Zetia] Adverse Reaction (Severe, Verified 11/15/23 20:47) Muscle Pain Medication List - Last Reconciled 01/05/24 by Quinten Shook MD acetaminophen 975 mg (3 x 325 mg) PO Q6H 30 days albuterol sulfate 90 mcg/actuation 1 inh inhalation Q4H PRN apixaban (Eliquis) 5 mg PO BID 90 days benzonatate 200 mg PO TID PRN diltiazem HCl CD 180 mg PO DAILY 90 days evolocumab (Repatha SureClick) 140 mg subcut Q2W 90 days fluticasone furoate-vilanterol 200-25 mcg/dose 1 inh inhalation DAILY ipratropium-albuterol 0.5 mg-3 mg(2.5 mg base)/3 mL 3 mL inhalation QID levothyroxine 88 mcg PO DAILY lisinopril-hydrochlorothiazide 10-12.5 mg 1 tab PO DAILY montelukast 10 mg PO DAILY rosuvastatin 40 mg PO DAILY tiotropium bromide 2.5 mcg/actuation 1 inh inhalation DAILY HPI Comments Details: Rizwana returns for follow-up regarding paroxysmal atrial fibrillation, coronary disease and other issues. According to her, she is doing very well. Does not really have any cardiac issues. No anginal-type chest pains or palpitations or anything else cardiac sounding. She does get some breathing issues related to her lungs but that is also stable according to her. [facility] Medical History Primary cancer of left lower lobe of lung (~09/2020) Pneumothorax of left lung after biopsy Pneumothorax after biopsy (~09/2020) Osteopenia Former smoker, stopped smoking in distant past Hyperlipidemia Hypothyroidism History of Graves' disease History of cancer of left breast Pulmonary nodule PVC (premature ventricular contraction) PAF (paroxysmal atrial fibrillation) Hypertension COPD (chronic obstructive pulmonary disease) Surgical History History of chest tube placement (~09/2020) History of lung biopsy (~09/2020) History of colonoscopy History of breast biopsy (~12/2009) History of lumpectomy (~2009) History of tubal ligation History of hysterectomy (~12/1988) History of tonsillectomy History of appendectomy Family History Father No problems noted. Mother CVD (cardiovascular disease) Social History Household Members: Spouse Housing: House Do you presently have visiting nurse or other home services: No Alcohol intake: former Year quit: 1999 Patient Tobacco Use Status: Former Tobacco user service: No Current occupational status: retired Review of Systems Const Denies chills, Denies fatigue, Denies fever(s), Denies weight gain and Denies weight loss ENT Denies dizziness Card Denies chest pain, Denies leg edema, Denies lightheadedness, Denies palpitations, Denies dyspnea on exertion, Denies orthopnea and Denies other Resp Denies cough and Denies dyspnea on exertion GI Denies hematochezia and Denies change in stool character Musc Denies abnormal gait, Denies muscle weakness, Denies numbness, Denies radiating pain into limb and Denies tingling Neuro Denies abnormal gait, Denies dizziness, Denies numbness and Denies tingling Endo Denies fatigue and Denies palpitations Physical Exam Vital Signs: Last Vital Signs Pulse 95 01/05/24 08:25 BP 104/50 L 01/05/24 08:25 BMI result Body Mass Index 20.8 Const General: comfortable and no acute distress Orientation/consciousness: patient oriented x3 HEENT Other: Unremarkable Head: Yes normal to inspection Neck Neck: Yes normal visual inspection Chest Chest palpation & inspection: normal inspection of the chest Resp Auscultation: diminished lung sounds Cardio Palpation: normal PMI Heart sounds: S1 normal heart sound present, S2 normal heart sound present, no gallops, no murmurs and no rubs GI Palpation (GI): Soft to palpation Back/Spine/Pelvis Other: unremarkable Skin General skin exam: no rashes or lesions noted Neuro General: patient oriented x3 Extrem General: Yes normal to inspection Psych Mental Status: mental status grossly normal Assessment & Plan Assessment & Plan (1) Coronary artery calcification seen on CT scan: Code(s): I25.10 - Atherosclerotic heart disease of [place] coronary artery without angina pectoris Category: Medical Plan: Coronary CTA reviewed. Moderate stenosis in the distal circumflex, PDA. Mild disease in LAD. Clinically, no angina whatsoever. Continue aggressive risk factor modification. She is on Repatha/statins, and her cholesterol seems very well controlled. (2) PAF (paroxysmal atrial fibrillation): Code(s): I48.0 - Paroxysmal atrial fibrillation Category: Medical Plan: Continue Diltiazem and Eliquis. No recent issues. (3) Essential hypertension: Code(s): I10 - Essential (primary) hypertension Category: Medical Plan: Continue Lisinopril/Hydrochlorothiazide. Coding Level of Care Code Est Pt Level 4 (69003) Diagnoses Coronary artery calcification seen on CT scan I25.10 PAF (paroxysmal atrial fibrillation) I48.0 Essential hypertension I10
[2024-01-05 08:25] VITALS: BP 104/50; PULSE 95; BMI 20.8
== END 2024-01-05 08:41 | disposition home or self-care (01) ==
PROVIDERS: PCP Internal Medicine; Visit Provider Internal Medicine
DX: I25.10 Atherosclerotic heart disease of native coronary artery without angina pectoris (principal); I48.0 Paroxysmal atrial fibrillation; I10 Essential (primary) hypertension
CPT/HCPCS: 99214

== ENCOUNTER → 2024-01-05 08:12 | Outpatient (BNVA) | payer MEDICARE, SELFPAY | PROVIDERS: PCP Internal Medicine; Visit Provider Internal Medicine | DX: I48.0 Paroxysmal atrial fibrillation (principal); I25.10 Atherosclerotic heart disease of native coronary artery without angina pectoris; I10 Essential (primary) hypertension | CPT/HCPCS: 99212 ==

== ENCOUNTER 2024-03-10 10:47 | Outpatient (REF) | payer MEDICARE, SELFPAY ==
[2024-03-10 10:51] LABS: MANUAL DIFF FLAG NO
[2024-03-10 11:32] LABS: Basophils Percent Auto 0.5 % (0-2); Hematocrit 41.5 % (37.0-47.0); Hemoglobin 13.9 g/dl (12.0-16.0); Imm Gran Abs Auto 0.04 X10*3/uL (0.00-0.03); Imm Gran Pct Auto 0.5 % (0.0-0.4); Lymphocytes Absolute Auto 1.1 X10*3/uL (1.2-4.9); Lymphocytes Percent Auto 13.2 % (20-40); Mean Corpuscular HGB Conc 33.5 g/dl (31.0-35.0); Mean Corpuscular Hemoglobin 29.8 pg (27.0-33.0); Mean Corpuscular Volume 88.9 fL (80.0-98.0); Monocytes Absolute Auto 0.6 X10*3/uL (0.1-1.2); Monocytes Percent Auto 6.9 % (2-11); Neutrophils Absolute Auto 6.7 x10*3/uL (2.0-8.3); Neutrophils Percent Auto 78.9 % (45-73); Platelet Count 376 X10*3/uL (160-400); Red Blood Count 4.67 X10*6/uL (4.20-5.50); Red Cell Distribution Width 12.9 % (11.0-16.0); White Blood Count 8.5 X10*3/uL (4.8-10.8)
[2024-03-10 11:35] LABS: Appearance Urine Clear; Color Urine Yellow; Glucose Urine UA Negative (Negative); Leukocyte Esterase Urine Small (1+) (Negative); Nitrite Urine Negative (Negative); Specific Gravity - Urine 1.015 (1.005-1.025); UMIC TRIGGER UACC YES; Urine Blood Negative (Negative); Urine Ketones Negative (Negative); Urine Protein 30 (1+) mg/dL (Neg-Trace)
[2024-03-10 11:59] LABS: Bacteria Urine None Seen (None Seen); RBC Urine 0-2 /HPF (0-2); Squamous Epithelial Cell Urine 0-2 /HPF (0-2); UACC Culture Trigger YES
[2024-03-10 12:01] LABS: Alanine Aminotransferase 18 U/L (0-31); Albumin Level 4.2 g/dL (3.5-5.0); Alkaline Phosphatase 93 U/L (39-117); Anion Gap 15 (12-20); Aspartate Amino Transferase 20 U/L (5-31); Bilirubin Total 0.3 mg/dL (0.0-1.0); Blood Urea Nitrogen 21 mg/dL (9-16); Calcium 9.9 mg/dL (8.4-10.2); Carbon Dioxide 28 mmol/L (22-29); Chloride 97 mmol/L (96-108); Cholesterol 145 mg/dL (<200); Estimated Glomerular Filt Rate 59; Glucose Fasting 162 mg/dL (60-99); HDL Cholesterol 62 mg/dL (>40); LDL Cholesterol Calculated 55 mg/dL (<100); Sodium 136 mmol/L (135-145); Total Protein 7.4 g/dL (6.5-8.0); Triglycerides 144 mg/dL (<150)
== END 2024-03-10 10:48 | disposition home or self-care (01) ==
LOC: HO.LNP 10:47
PROVIDERS: Visit Provider Internal Medicine
DX: I10 Essential (primary) hypertension (principal); E03.9 Hypothyroidism, unspecified; E78.00 Pure hypercholesterolemia, unspecified
CPT/HCPCS: 80053; 80061; 81001; 84443; 85025; 87086

== ENCOUNTER 2024-09-11 10:47 | Outpatient (REF) | payer MEDICARE, SELFPAY ==
[2024-09-11 11:32] LABS: Estimated Average Glucose 146 mg/dL; Hemoglobin A1c % 6.7 % (<6.0); Total Hemoglobin (HGBA1C) 3645.7005 umol/L
[2024-09-11 11:40] LABS: Alanine Aminotransferase 18 U/L (0-31); Albumin Level 4.3 g/dL (3.5-5.0); Alkaline Phosphatase 83 U/L (39-117); Aspartate Amino Transferase 24 U/L (5-31); Bilirubin Direct 0.1 mg/dL (0.0-0.5); Bilirubin Total 0.4 mg/dL (0.0-1.0); Cholesterol 135 mg/dL (<200); Glucose Fasting 142 mg/dL (60-99); HDL Cholesterol 64 mg/dL (>40); LDL Cholesterol Calculated 42 mg/dL (<100); Total Protein 7.2 g/dL (6.5-8.0); Triglycerides 146 mg/dL (<150)
[2024-09-11 12:42] LABS: Reflex LDLD? No
== END 2024-09-11 10:48 | disposition home or self-care (01) ==
LOC: HO.LNP 10:47
PROVIDERS: Visit Provider Internal Medicine
DX: E78.00 Pure hypercholesterolemia, unspecified (principal); E11.9 Type 2 diabetes mellitus without complications
CPT/HCPCS: 80061; 80076; 82947; 83036

== ENCOUNTER 2025-01-09 08:15 | Outpatient (AMB) | payer MEDICARE, OTHER, SELFPAY ==
--- OUTSIDE RECORDS SUMMARY | 2025-01-09 08:21 | XMS_ITS | Patient Health Record ---
Author Organization [facility] Address [address] [place] [address] Care Team Providers Care Drawing Box Tender Name Role Phone Nikita Patel MD Primary Care Provider Rock Cristina Unavailable [phone] Allergies Allergen (clinical drug ingredient) Drug/Non Drug Allergy documented on EMR Reaction Allergy Type Onset Date Status moxifloxacin Avelox Unknown Drug Allergy Acti ve nickel nickel (uncoded) Unknown Allergy Act pratibha Reason For Referral No Information Medications Medication SIG (Take, Route, Frequency, Duration) Notes Start Date End Date Status Rosuvastatin Calcium 20 MG 1 tablet Oral ly Once a day Active Ipratropium-Albuterol 20-100 MCG/ACT 1 puff Inhalation PRN Acti ve Lisinopril-hydroCHLOROthiaz hailey 10-12.5 MG take 1 tablet by mouth once daily Oral Once a day Active Synthroid 88 MCG take 1 tablet by everett th once daily Oral Once a day Active Proventil HFA 108 (90 Base) MCG/ACT 2 puffs as needed Inhalation prn Active Anoro Ellipta 62.5-25 MCG/INH 1 puff Inhalation Once a day Active Immunizations Vaccine Route Administration Date Status Comme nts Flu vaccine no Preserv 3 and > Unknown 04/28/2016 Admin istered Problems Problem Type SNOMED Code ICD Code Onset Dates Problem Status W/U Status Risk Notes Problem [id number] Encounter for screening for malignant neoplasm of colon (Z12.11) Active confirmed Problem 496480918 History of adenomatous polyp of colon (Z86.010) Active confirmed Problem [id number] Secondary hypertension (I15.9) Active confirmed Plan Of Treatment Future Test Test Name Order Date COLONOSCOPY 12/17/2011 COLONOSCOPY 10/29/2016 Insurance Providers Payer Name Payer Address Payer Phone Subscriber Number Group Number Insured Name Patient Relationship to Insured Coverage Start Date Coverage End Date MEDICARE OF [place] [address] [place] [id number] ROCK DIAZ Self - patient is the insured [employer] [employer] PREFERRED [address] [place] [phone] [id number] ROCK DIAZ Self - patient is the insured Medical (General) History Medical History History ICD Code Screening colonoscopy 05-27-2006--small t ubular adenoma Hyperlipidemia Asthma/COPD Hypothyroidism Denies PA,DM,CVA,renal disease Breast cancer of left breast-Rx'd with l umpectomy and XRT in 2009 Colonoscopy in 12/2011 was ne gative except for diverticulosis and internal hemorrhoids HTN Surgical History Surgery Date(Month/Year) Lumpectomy on left breast with lymph nod e dissection Appy Hysterectomy Cataract-lens implants Tubal ligation
--- OUTSIDE RECORDS SUMMARY | 2025-01-09 08:21 | XMS_ITS | Patient Health Record ---
Author Organization Nikita Patel MD Address [address] [place], [place] [id number] Care Team Providers Care Commutator Presser Name Role Phone Nikita Patel Primary Care Provider Allergies Allergen (clinical drug ingredient) Drug/Non Drug Allergy documented on EMR Reaction Allergy Type Onset Date Status moxifloxacin Avelox (uncoded) fatigue Allergy Active Results Component Value Reference Range Notes Complete Blood Count Auto Di ff Reviewed date:03/10/2024 02:55:31 PM Interpretation: Performing Lab:[facility], [address] [place] [phone] Notes/Report: White Blood Count 8.5 4.8-10.8 X10*3/uL Red Blood Count 4.67 4.20-5.50 X10*6/uL Hemoglobin 13.9 12.0-16.0 g/dl Hematocrit 41.5 37.0-47.0 % Mean Corpuscular Volume 88.9 80.0-98.0 fL Mean Corpuscular Hemoglobin 29.8 27.0-33.0 pg Mean Corpuscular HGB Conc 33.5 31.0-35.0 g/dl Red Cell Distribution Width 12.9 11.0-16.0 % Platelet Count 376 160-400 X10*3/uL Mean Platelet Volume 9.0 9.4-12.3 fL Neutrophils Percent Auto 78.9 45-73 % Imm Gran Pct Auto 0.5 0.0-0.4 % Lymphocytes Percent Auto 13.2 20-40 % Monocytes Percent Auto 6.9 2-11 % Eosinophils Percent Auto 0.0 0-4 % Basophils Percent Auto 0.5 0-2 % NRBC Pct Auto 0.0 0.0-0.2 /100WBC Neutrophils Absolute Auto 6.7 2.0-8.3 x10*3/u L Imm Gran Abs Auto 0.04 0.00-0.03 X10*3/uL Lymphocytes Absolute Auto 1.1 1.2-4.9 X10*3/u L Monocytes Absolute Auto 0.6 0.1-1.2 X10*3/uL Eosinophils Absolute Auto 0.0 0.0-0.4 X10*3/u L Basophils Absolute Auto 0.0 0.0-0.2 X10*3/uL NRBC Abs Auto 0.000 0.0-0.012 X10*3/uL Comprehensive Dent. Panel Fa st Reviewed date:03/10/2024 02:53:51 PM Interpretation: Performing Lab:[facility], [address] [place] [phone] Notes/Report: Sodium 136 135-145 mmol/L Potassium 4.0 3.3-5.1 mmol/L Chloride 97 96-108 mmol/L Carbon Dioxide 28 22-29 mmol/L Anion Gap 15 12-20 Blood Urea Nitrogen 21 9-16 mg/dL Creatinine 0.93 0.5-1.4 mg/dL Estimated Glomerular Filt Rate 59 NOTE: For -Aust[place] individuals, multiply the result by 1.210. Chronic Kidney Disease: Estimated GFR < 60 mL/min/1.73m2 Severe Kidney Disease: Estimated GFR < 15 mL/min/1.73m2 Glucose Fasting 162 60-99 mg/dL A fasting glucose of 126 mg/dl or greater on more than one occasion is considered diagnostic of diabetes. Calcium 9.9 8.4-10.2 mg/dL Bilirubin Total 0.3 0.0-1.0 mg/dL Aspartate Amino Transferase 20 5-31 U/L Alanine Aminotransferase 18 0-31 U/L Total Protein 7.4 6.5-8.0 g/dL Albumin Level 4.2 3.5-5.0 g/dL Alkaline Phosphatase 93 39-117 U/L Lipid Panel Reviewed date:03/10/2024 12:32:43 PM Interpretation: Performing Lab:[address] [phone] Notes/Report: Triglycerides 144 <150 mg/dL Desirable Triglyceride: less than 150 mg/dL Borderline High Triglyceride 150-199 mg/dL High Triglyceride: 200-499 mg/dL Very High Triglyceride: greater than or equal to 5OO mg/dL Cholesterol 145 <200 mg/dL Desirable Cholesterol: less than 200 mg/dL Borderline High Cholesterol: 200-239 mg/dL High Cholesterol: greater than 239 mg/dL LDL Cholesterol Calculated 55 <100 mg/dL Desirable LDL: less than 100 mg/dL Near Optimal/Above Optimal LDL: 110-129 mg/dL Borderline High LDL: 130-159 mg/dL High LDL: 160-189 mg/dL Very High LDL: greater than or equal to 190 mg/dL HDL Cholesterol 62 >40 mg/dL Desirable HDL: greater than 40 mg/dL Note: This HDL assay may give artificially low results in patients with liver disease. TSH reflex Free T4 Reviewed date:03/10/2024 12:32:21 PM Interpretation: Performing Lab:[facility], [address] [place] [phone] Notes/Report: TSH reflex Free T4 1.30 0.32-4.0 uIU/mL UA ClnCatch+Micro w/rflx Cul t Reviewed date:03/10/2024 02:55:12 PM Interpretation: Performing Lab:[facility], [address] [place] [phone] Notes/Report: Urine, Clean Catch Color Urine Yellow Appearance Urine Clear PH 6.0 5.0-9.0 Glucose Urine UA Negative Negative mg/dL Urine Blood Negative Negative Specific Letha - Urine 1.015 1.005-1.025 Urine Protein 30 (1+) Neg-Trace mg/dL Urine Ketones Negative Negative mg/dL Nitrite Urine Negative Negative Leukocyte Esterase Urine Small (1+) Negative RBC Urine 0-2 0-2 /HPF WBC Urine 11-20 0-5 /HPF Squamous Epithelial Cell Urine 0-2 0-2 /HPF Bacteria Urine None Seen None Seen Hyaline Casts Urine 3-5 0-2 /LPF Liver Panel Reviewed date:09/11/2024 12:45:51 PM Interpretation: Performing Lab:[address] [phone] Notes/Report: Bilirubin Total 0.4 0.0-1.0 mg/dL Bilirubin Direct 0.1 0.0-0.5 mg/dL Aspartate Amino Transferase 24 5-31 U/L Alanine Aminotransferase 18 0-31 U/L Total Protein 7.2 6.5-8.0 g/dL Albumin Level 4.3 3.5-5.0 g/dL Alkaline Phosphatase 83 39-117 U/L Glucose Fasting Reviewed date:09/11/2024 12:45:43 PM Interpretation: Performing Lab:[facility], [address] [place] [phone] Notes/Report: Glucose Fasting 142 60-99 mg/dL A fasting glucose of 126 mg/dl or greater on more than one occasion is considered diagnostic of diabetes. Lipid Panel with Reflex Reviewed date:09/11/2024 12:54:01 PM Interpretation: Performing Lab:[facility], [address] [place] [phone] Notes/Report: Triglycerides 146 <150 mg/dL Desirable Triglyceride: less than 150 mg/dL Borderline High Triglyceride 150-199 mg/dL High Triglyceride: 200-499 mg/dL Very High Triglyceride: greater than or equal to 5OO mg/dL Cholesterol 135 <200 mg/dL Desirable Cholesterol: less than 200 mg/dL Borderline High Cholesterol: 200-239 mg/dL High Cholesterol: greater than 239 mg/dL LDL Cholesterol Calculated 42 <100 mg/dL Desirable LDL: less than 100 mg/dL Near Optimal/Above Optimal LDL: 110-129 mg/dL Borderline High LDL: 130-159 mg/dL High LDL: 160-189 mg/dL Very High LDL: greater than or equal to 190 mg/dL HDL Cholesterol 64 >40 mg/dL Desirable HDL: greater than 40 mg/dL Note: This HDL assay may give artificially low results in patients with liver disease. Hemoglobin A1c Reviewed date:09/11/2024 12:45:35 PM Interpretation: Performing Lab:[address] [phone] Notes/Report: Hemoglobin A1c % 6.7 <6.0 % Hemoglobin A1C Reference Range Adults: 4.8 - 6.0 % Non diabetic: < 6.0 % Goal: < 7.0 % Additional Action Suggested: > 8.0 % Note: Hemoglobin A1c results are invalid for patients with abnormal amounts of HbF. Blood transfusions may impact the HbA1c concentration in the patient sample. Estimated Average Glucose 146 eAG = Estimated average glucose which is %A1C expressed as average glucose, using the formula of the [id number] Average Glucose study (ADAG), Diabetes Care, Vol.31,#8, Jan. 2007 Junior Stallworth Reviewed date:03/10/2024 12:28:19 PM Interpretation: Performing Lab:[address] [phone] Notes/Report: Junior Stallworth See Note Specimen held untested for 24 hours; Call to request Chemistry testing. Urine Culture Reviewed date:03/13/2024 12:42:39 PM Interpretation: Performing Lab:[address] [phone] Notes/Report: Urine Culture Report Result Urine Culture 50,000 to 100,000 cfu/ml Urine Culture Mixed bacterial mili a characteristic of Urine Culture urogenital contamination. MAMMOGRAM DIGITAL BILATERAL SCREEN Reviewed date:05/09/2024 12:42:58 PM Interpretation:Negative Performing Lab: Notes/Report: Negative Junior Stallworth Reviewed date:09/11/2024 12:42:29 PM Interpretation: Performing Lab:[address] [phone] Notes/Report: Junior Stallworth See Note Specimen held untested for 24 hours; Call to request Chemistry testing. Reason For Referral No Information Medications Medication SIG (Take, Route, Frequency, Duration) Notes Start Date End Date Status Spiriva Respimat 2.5 MCG/ACT 2 puffs Inhalation Once a day Active Singulair 10 MG 1 tablet in the evening Orally Once a day Active Ipratropium-Albuterol 0.5-3 (2.5) mg/3 ml 3 ml Inhalation Four times a day 01/15/2012 Active Dilt-XR 180 MG 1 capsule on an empt y stomach in the morning Orally Once a day Active Lisinopril-hydroCHLOR Othiazide 10-12.5 MG TAKE 1 TABLET BY MOUTH DAILY Active Rosuvastatin Calcium 40 MG 1 tablet Orally Once a day Active Repatha 140 MG/ML 1 mL Subcutaneous q 2 weeks Active Eliquis 5 MG 1 tablet Orally twic e a day Active Synthroid 88 MCG 1 tablet in the morning on an empty stomach Orally Once a day no substitution Active Vitamin D (Cholecalciferol) 50 MCG (2000 UT) 1 tablet Orally Once a day 02/23/2019 Active Breo Ellipta 200-25 MCG/INH 1 puff Inhalation once a day no substitution Active Ventolin HFA * 108 (90 Base) MCG/ACT 2 puffs as needed Inhalation every 4 hrs Active Incruse Ellipta 62.5 MCG/ACT 1 puff Inhalation Once a day 08/10/2024 Active LORazepam 0.5 MG 1 tablet at bedtime as needed Orally Once a day for 10 days 09/18/2024 Active Immunizations Vaccine Route Administration Date Status Comme nts Flu Vaccine IM Intramuscular 02/09/2011 Administered PPSV23 (Pnemovax) Unknown 02/09/2007 Administered Tetanus Unknown 04/11/2001 Administered Tetanus IM Intramuscular 03/16/2011 Administered Flu Vaccine IM Intramuscular 02/29/2012 Administered Flu Vaccine IM Intramuscular 02/24/2013 Administered Prevnar 13 IM Intramuscular 07/03/2013 Administered Fluarix Quadrivalent IM Intramuscular 02/26/2014 Administe red Shingles IM Intramuscular 07/10/2014 Administered PPSV23 (Pnemovax) IM Intramuscular 02/07/2015 Administered Fluarix Quadrivalent IM Intramuscular 03/08/2015 Administe red Fluarix Quadrivalent IM Intramuscular 02/20/2016 Administe red Fluarix Quadrivalent IM Intramuscular 03/08/2017 Administe red Fluarix Quadrivalent IM Intramuscular 03/03/2018 Administe red Fluarix Quadrivalent IM Intramuscular 03/07/2019 Administe red Influenza High Dose IM Intramuscular 02/22/2020 Administer ed PPSV23 (Pnemovax) IM Intramuscular 03/06/2020 Administered Influenza High Dose IM Intramuscular 02/28/2021 Administer ed SARS-COV-2 Moderna Unknown 09/14/2020 Administered SARS-COV-2 Moderna Unknown 08/17/2020 Administered SARS-COV-2 Moderna Unknown 04/12/2021 Administered SARS-COV-2 Moderna Unknown 04/12/2021 Administered SARS-COV-2 Moderna Unknown 09/23/2021 Administered Influenza High Dose IM Intramuscular 03/02/2022 Administer ed Influenza High Dose IM Intramuscular 03/12/2023 Administer ed Influenza High Dose IM Intramuscular 03/10/2024 Administer ed zzz Unknown 07/03/2013 Pending Flu Vaccine Unknown 02/26/2014 Pending Social History Tobacco Use: Social History Observation Description Date Details (start date - stop date) Former Smoker NA - NA Sex Assigned At : Social History Observation Description Sex Assigned At Female Tobacco Use/Smoking Question Answer Notes Patient is a former smoker How long has it been since y ou last smoked? > 10 years Additional Findings: Tobacco Non-User Fo rmer smoker, currently using no form of tobacco Alcohol Screen Question Answer Notes Did you have a drink containing alcohol in the p ast year? 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) Active confirmed Problem 597933596 Lung nodule seen on imaging study (R91.1) Active confirmed Problem Insomnia (383886701) Insomnia (G47.00) Active confirmed Problem 85081912 Vitamin D defici ency (E55.9) Active confirmed Problem 632798405 Paroxysmal atria l fibrillation (I48.0) Active confirmed Problem Malignant tumor of lung (572443590) Malignant neoplasm of unspecified part of unspecified bronchus or lung (C34.90) Active confirmed Problem 11832508 Hypercalcemia (E83.52) Active confirme d Problem 2063963 Panlobular emphy sema (J43.1) Active confirmed Problem Perimenopausal disorder (691261600) Other specified menopausal and perimenopausal disorders (N95.8) Active confirmed Problem 516818858 Tubular adenoma of colon (D12.6) Active confirmed Problem 84613017 Essential hypert ension (I10) Active confirmed Problem 057621707 Acquired hypothyroidism (E03.9) Active confirmed Problem 689968047 Mild intermitten t asthma without complication (J45.20) Active confirmed Problem 08429904 Labile hypertens ion (I10) Active confirmed Problem 681889984 Irregular heart beat (I49.9) Active confirmed Problem 690604229 Lung nodules (R91.8) Active confirmed Problem 98919670 Coronary artery disease involving seminole coronary artery of seminole heart without angina pectoris (I25.10) Active confirmed Problem 285894941 Pure hypercholesterolemia (E78.00) Active confirmed Problem 933437642 Type 2 diabetes mellitus without complication, without long-term current use of insulin (E11.9) Active confirmed Problem 503256539 COPD with exacer bation (J44.1) Active confirmed Problem Adenocarcinoma of left lung (566333589412790 05) Adenocarcinoma of left lung (C34.92) Active confirmed Problem 68921415 COPD without exacerbation (J44.9) Active confirmed Vital Signs Blood pressure diastolic 50 mm Hg 12/18/2024 Height 64 in 12/18/2024 Blood pressure systolic 142 mm Hg 12/18/2024 Weight 108 lbs 12/18/2024 BMI 18.54 kg/m2 12/18/2024 Encounters Encounter Location Date Provider Diagnosis Nikita Patel MD [address] [place] [id number] 03/10/2024 Nikita Patel Essential hypertensi on I10 ; Encounter for immunization Z23 ; Acquired hypothyroidism E03.9 ; Labile hypertension I10 and Pure hypercholesterolemia E78.00 Nikita Patel MD [address] [place] [id number] 09/11/2024 Nikita Patel Pure hypercholestero lemia E78.00 and Type 2 diabetes mellitus without complication, without long-term current use of insulin E11.9 Nikita Patel MD [address] [place] [id number] 03/16/2024 Nikita Patel Lung nodules R91.8 ; Acquired hypothyroidism E03.9 ; Type 2 diabetes mellitus without complication, without long-term current use of insulin E11.9 ; Adenocarcinoma of left lung C34.92 ; Coronary artery disease involving seminole coronary artery of seminole heart without angina pectoris I25.10 ; COPD without exacerbation J44.9 ; Essential hypertension I10 ; Vitamin D deficiency E55.9 and Depression screening Z13.31 Nikita Patel MD [address] [place] [id number] 09/18/2024 Nikita Patel Insomnia G47.00 ; Panlobular emphysema J43.1 ; Pure hypercholesterolemia E78.00 and Type 2 diabetes mellitus without complication, without long-term current use of insulin E11.9 Nikita Patel MD [address] [place] [id number] 12/18/2024 Nikita Patel Panlobular emphysema J43.1 and Essential hypertension I10 Nikita Patel MD [address] [place] [id number] 01/20/2024 Nikita Patel Pure hypercholestero lemia E78.00 Nikita Patel MD [address] [place] [id number] 01/27/2024 Nikita Patel Mild intermittent as thma without complication J45.20 ; Acquired hypothyroidism E03.9 and Essential hypertension I10 Nikita Patel MD [address] [place] [id number] 01/27/2024 Nikita Patel Acquired hypothyroid ism E03.9 Nikita Patel MD [address] [place] [id number] 08/01/2024 Nikita Patel COPD without exacerb ation J44.9 Nikita Patel MD [address] [place] [id number] 08/10/2024 Nikita Patel MD [address] [place] [id number] 08/24/2024 Nikita Patel MD [address] [place] [id number] 08/24/2024 Nikita Patel COPD without exacerb ation J44.9 Nikita Patel MD [address] [place] [id number] 08/28/2024 Nikita Patel Mild intermittent as thma without complication J45.20 Nikita Patel MD [address] [place], [place] [id number] 08/31/2024 Nikita Patel Essential hypertensi on I10 Assessments Encounter Date Diagnosis (ICD Code) Assessment Notes Treatment Notes Treatment Clinical Notes Section Notes 03/10/2024 Essential hypertensi on (ICD-10 - I10) 03/10/2024 Encounter for immunization (ICD-10 - Z23) 09/11/2024 Pure hypercholesterolemia (ICD-10 - E78.00) 03/16/2024 Lung nodules (ICD-10 - R91.8) no change, will continue to monitor 03/16/2024 Acquired hypothyroid ism (ICD-10 - E03.9) tsh good, will continue current regiment 09/18/2024 Insomnia (ICD-10 - G47.00) patient verbalized understanding of medication and directions for use 12/18/2024 Panlobular emphysema (ICD-10 - J43.1) stable is going to see pulmonary, will contnue current regiment 01/20/2024 Pure hypercholesterolemia (ICD-10 - E78.00) 01/27/2024 Mild intermittent asthma without complication (ICD-10 - J45.20) 01/27/2024 Acquired hypothyroid ism (ICD-10 - E03.9) 08/01/2024 COPD without exacerbation (ICD-10 - J44.9) 08/24/2024 COPD without exacerbation (ICD-10 - J44.9) 08/28/2024 Mild intermittent asthma without complication (ICD-10 - J45.20) 08/31/2024 Essential hypertensi on (ICD-10 - I10) 03/10/2024 Acquired hypothyroid ism (ICD-10 - E03.9) 09/11/2024 Type 2 diabetes mellitus without complication, without long-term current use of insulin (ICD-10 - E11.9) 03/16/2024 Type 2 diabetes mellitus without complication, without long-term current use of insulin (ICD-10 - E11.9) good a1c, will continue curent regiment 09/18/2024 Panlobular emphysema (ICD-10 - J43.1) stable, will continue current regiment 12/18/2024 Essential hypertensi on (ICD-10 - I10) is running a little high/ will observe 01/27/2024 Acquired hypothyroid ism (ICD-10 - E03.9) 03/10/2024 Labile hypertension (ICD-10 - I10) 03/16/2024 Adenocarcinoma of le ft lung (ICD-10 - C34.92) is followed by pulmonary 09/18/2024 Pure hypercholesterolemia (ICD-10 - E78.00) doing well, will contiue current regiment 01/27/2024 Essential hypertensi on (ICD-10 - I10) 03/10/2024 Pure hypercholesterolemia (ICD-10 - E78.00) 03/16/2024 Coronary artery dise ase involving seminole coronary artery of seminole heart without angina pectoris (ICD-10 - I25.10) no complaints 09/18/2024 Type 2 diabetes mellitus without complication, without long-term current use of insulin (ICD-10 - E11.9) stable, will continue curent regiment 03/16/2024 COPD without exacerbation (ICD-10 - J44.9) 03/16/2024 Essential hypertensi on (ICD-10 - I10) 03/16/2024 Vitamin D deficiency (ICD-10 - E55.9) 03/16/2024 Depression screening (ICD-10 - Z13.31) Plan Of Treatment Pending Test Test Name Order Date Electrocardiogram (EKG) 02/16/2019 MAMMOGRAM DIGITAL BILATERAL SCREEN 01/01 Future Test Test Name Order Date CT CHEST NO CONTRAST 02/17/2021 Next Appt Details Provider Name:Nikita moncada, 03/15/2025 07:00:00 AM, [address] [place] [address], [address], [place], [phone], Provider Name:Nikita moncada, 03/22/2025 08:30:00 AM, [address] [place] [address], [address], [place], [place], [phone], Insurance Providers Payer Name Payer Address Payer Phone Subscriber Number Group Number Insured Name Patient Relationship to Insured Coverage Start Date Coverage End Date [employer] [address] [place] [address] [id number] Rizwana Arteaga Self - patient is the insured [facility] [address] [id number] Rizwana Arteaga Self - patient is the insured Medical (General) History Medical History History ICD Code asthma - mild intermittent hyperthyroidism hypercholesterolemia Pre diabetes breast cancer colonoscopy 2011 due in 5 ye ars; colonoscopy done 01/11/[address] Elena - NO FURTHER TESTING PER DR ELENA Cervix and Uterus absent
--- NOTE | 2025-01-09 08:32 | A.OFFVIS_ITS ---
Vital Signs 01/09/25 08:33 Height 5 ft 4 in Weight 105 lb 13.15 oz BMI 18.2 BP 140/70 H Blood Pressure Location Lt brachial Position Sitting Pulse 93 Pulse Source Monitor Intake Visit Reasons: 1 yr f/up Allergies moxifloxacin (From AVELOX) Allergy (Severe, Verified 11/15/23 20:47) UNKNOWN nickel (NICKEL) Allergy (Severe, Verified 11/15/23 20:47) RASH ezetimibe (From Zetia) Adverse Reaction (Severe, Verified 11/15/23 20:47) Muscle Pain Medication List - Last Reconciled 01/09/25 by Quinten Shook MD acetaminophen 975 mg (3 x 325 mg) PO Q6H 30 days albuterol sulfate 90 mcg/actuation 1 inh inhalation Q4H PRN apixaban (Eliquis) 5 mg PO BID 90 days benzonatate 200 mg PO TID PRN diltiazem HCl CD 180 mg PO DAILY 90 days evolocumab (Repatha SureClick) 140 mg subcut Q2W 90 days fluticasone furoate-vilanterol 200-25 mcg/dose 1 inh inhalation DAILY ipratropium-albuterol 0.5 mg-3 mg(2.5 mg base)/3 mL 3 mL inhalation QID levothyroxine 88 mcg PO DAILY lisinopril-hydrochlorothiazide 10-12.5 mg 1 tab PO DAILY montelukast 10 mg PO DAILY rosuvastatin 40 mg PO DAILY tiotropium bromide 2.5 mcg/actuation 1 inh inhalation DAILY HPI Comments Details: Rizwana returns for follow-up regarding paroxysmal atrial fibrillation, coronary disease and other issues. Overall, no cardiac symptoms and she is doing fine. [facility] Medical History Primary cancer of left lower lobe of lung (~09/2020) Pneumothorax of left lung after biopsy Pneumothorax after biopsy (~09/2020) Osteopenia Former smoker, stopped smoking in distant past Hyperlipidemia Hypothyroidism History of Graves' disease History of cancer of left breast Pulmonary nodule PVC (premature ventricular contraction) PAF (paroxysmal atrial fibrillation) Hypertension COPD (chronic obstructive pulmonary disease) Surgical History History of chest tube placement (~09/2020) History of lung biopsy (~09/2020) History of colonoscopy History of breast biopsy (~12/2009) History of lumpectomy (~2009) History of tubal ligation History of hysterectomy (~12/1988) History of tonsillectomy History of appendectomy Family History Father No problems noted. Mother CVD (cardiovascular disease) Social History Household Members: Spouse Housing: House Do you presently have visiting nurse or other home services: No Alcohol intake: former Year quit: 1999 Patient Tobacco Use Status: Former Tobacco user service: No Current occupational status: retired Review of Systems Const Denies weakness ENT Denies dizziness Card Denies chest pain, Denies chest pain with activity, Denies syncope, Denies rapid heart rate, Denies pedal edema, Denies edema, Denies leg edema, Denies lightheadedness, Denies palpitations, Denies dyspnea, Denies dyspnea on exertion and Denies orthopnea Resp Denies cough, Denies dyspnea and Denies dyspnea on exertion GI Denies hematochezia and Denies change in stool character Musc Denies abnormal gait, Denies muscle cramps, Denies muscle weakness, Denies numbness, Denies radiating pain into limb and Denies tingling Neuro Denies abnormal gait, Denies dizziness, Denies syncope, Denies numbness, Denies tingling and Denies weakness Endo Denies palpitations Physical Exam Vital Signs: Last Vital Signs Pulse 93 01/09/25 08:33 BP 140/70 H 01/09/25 08:33 BMI result Body Mass Index 18.2 Const General: comfortable and no acute distress Orientation/consciousness: patient oriented x3 HEENT Other: Unremarkable Head: Yes normal to inspection Neck Neck: Yes normal visual inspection Chest Chest palpation & inspection: normal inspection of the chest Resp Auscultation: clear to auscultation bilaterally Cardio Palpation: normal PMI Heart sounds: S1 normal heart sound present, S2 normal heart sound present, no gallops, no murmurs and no rubs GI Palpation (GI): Soft to palpation Back/Spine/Pelvis Other: unremarkable Skin General skin exam: no rashes or lesions noted Neuro General: patient oriented x3 Extrem General: Yes normal to inspection Psych Mental Status: mental status grossly normal Office Procedures EKG Details: EKG with underlying sinus rhythm at 93/Min; rightward axis; nonspecific ST-T changes; PVCs. 83689-[id number], Complete Assessment & Plan Assessment & Plan (1) Coronary artery calcification seen on CT scan: Code(s): I25.10 - Atherosclerotic heart disease of [place] coronary artery without angina pectoris Category: Medical Plan: Coronary CTA - moderate stenosis in the distal circumflex, PDA. Mild disease in LAD. Clinically, no angina whatsoever. Continue aggressive risk factor modification. She is on Repatha/statins, and her cholesterol seems very well controlled. (2) PAF (paroxysmal atrial fibrillation): Code(s): I48.0 - Paroxysmal atrial fibrillation Category: Medical Plan: Continue Diltiazem and Eliquis. No recent issues. (3) Essential hypertension: Code(s): I10 - Essential (primary) hypertension Category: Medical Plan: Continue Lisinopril/Hydrochlorothiazide. Lot of family stress recently and today's blood pressure is slightly high. No changes made. Plan Discussion Notes During the visit, we discussed the patient's current health status. We reviewed her recent lab results, which were favorable, and confirmed that no changes to her medication regimen are necessary. We also addressed her cardiac arrhythmia, noting that since she does not experience symptoms, no immediate intervention is required, but regular monitoring will continue. The patient was advised to maintain her current level of physical activity and to return for annual follow- up visits to monitor her cardiovascular health. Patient was informed and verbally consented to the use of an ambient scribe for clinic note documentation during this visit. Patient Instructions: - Continue current medications. - Maintain current level of physical activity. - Schedule annual follow-up visits for cardiovascular health monitoring. Coding Level of Care Code Est Pt Level 4 (81201) Complex EM visit Add On G2211 Diagnoses Coronary artery calcification seen on CT scan I25.10 PAF (paroxysmal atrial fibrillation) I48.0 Essential hypertension I10 CPT Codes EKG - CPT: 88379-[id number], Complete ([id number])
[2025-01-09 08:33] VITALS: BP 140/70; PULSE 93; BMI 18.2
== END 2025-01-09 08:51 | disposition home or self-care (01) ==
PROVIDERS: PCP Internal Medicine; Visit Provider Internal Medicine
DX: I25.10 Atherosclerotic heart disease of native coronary artery without angina pectoris (principal); I48.0 Paroxysmal atrial fibrillation; I10 Essential (primary) hypertension
CPT/HCPCS: 93010; 99214; G2211

== ENCOUNTER → 2025-01-09 08:15 | Outpatient (BNVA) | payer MEDICARE, SELFPAY | PROVIDERS: PCP Internal Medicine; Visit Provider Internal Medicine | DX: I25.10 Atherosclerotic heart disease of native coronary artery without angina pectoris (principal); I48.0 Paroxysmal atrial fibrillation; I10 Essential (primary) hypertension; R94.31 Abnormal electrocardiogram [ECG] [EKG] | CPT/HCPCS: 93005; 99212 ==

== ENCOUNTER 2025-03-15 10:42 | Outpatient (REF) | payer MEDICARE, OTHER, SELFPAY ==
[2025-03-15 10:46] LABS: MANUAL DIFF FLAG NO
[2025-03-15 11:18] LABS: Hematocrit 40.3 % (37.0-47.0); Hemoglobin 13.5 g/dl (12.0-16.0); Imm Gran Abs Auto 0.03 X10*3/uL (0.00-0.03); Imm Gran Pct Auto 0.4 % (0.0-0.4); Lymphocytes Absolute Auto 1.0 X10*3/uL (1.2-4.9); Mean Corpuscular HGB Conc 33.5 g/dl (31.0-35.0); Mean Corpuscular Hemoglobin 29.2 pg (27.0-33.0); Mean Corpuscular Volume 87.2 fL (80.0-98.0); NRBC Abs Auto 0.000 X10*3/uL (0.0-0.012); NRBC Pct Auto 0.0 /100WBC (0.0-0.2); Platelet Count 318 X10*3/uL (160-400); Red Blood Count 4.62 X10*6/uL (4.20-5.50); White Blood Count 7.6 X10*3/uL (4.8-10.8)
[2025-03-15 11:35] LABS: Total Hemoglobin (HGBA1C) 3515.4921 umol/L
[2025-03-15 11:39] LABS: Alanine Aminotransferase 18 U/L (0-31); Albumin Level 4.5 g/dL (3.5-5.0); Alkaline Phosphatase 81 U/L (39-117); Anion Gap 11 (12-20); Aspartate Amino Transferase 24 U/L (5-31); Blood Urea Nitrogen 17 mg/dL (9-16); Calcium 10.0 mg/dL (8.4-10.2); Carbon Dioxide 29 mmol/L (22-29); Chloride 100 mmol/L (96-108); Cholesterol 149 mg/dL (<200); Estimated Glomerular Filt Rate 59; HDL Cholesterol 67 mg/dL (>40); Potassium 3.7 mmol/L (3.3-5.1); Sodium 136 mmol/L (135-145); Total Protein 7.2 g/dL (6.5-8.0); Triglycerides 125 mg/dL (<150)
== END 2025-03-15 10:43 | disposition home or self-care (01) ==
LOC: HO.LNP 10:42
PROVIDERS: Visit Provider Internal Medicine
DX: I10 Essential (primary) hypertension (principal); E03.9 Hypothyroidism, unspecified; E78.00 Pure hypercholesterolemia, unspecified; E55.9 Vitamin D deficiency, unspecified; E11.9 Type 2 diabetes mellitus without complications
CPT/HCPCS: 80053; 80061; 82306; 83036; 84443; 85025

== ENCOUNTER 2025-03-22 11:11 | Outpatient (REF) | payer MEDICARE, OTHER, SELFPAY ==
--- OUTSIDE RECORDS SUMMARY | 2025-02-12 06:20 | XMS_ITS ---
Author Organization Nikita Patel MD Address [address] [place] [phone] Care Team Providers Care Internal Recruiter Name Role Phone Nikita Patel Primary Care Provider REASON FOR VISIT refill Medications Medication SIG (Take, Route, Frequency, Duration) Notes Start Date End Date Status Rosuvastatin Calcium 40 MG 1 tablet Oral ly Once a day for 30 days Active Social History Sex Assigned At : Social History Observation Description Sex Assigned At Female Encounters Encounter Location Date Provider Diagnosis Nikita Patel MD [address] [place] [phone] 02/12/2025 Nikita Patel Pure hypercholestero lemia E78.00 Assessments Encounter Date Diagnosis (ICD Code) Assessment Notes Treatment Notes Treatment Clinical Notes Section Notes 02/12/2025 Pure hypercholesterolemia (ICD-10 - E78.00) Plan Of Treatment Medication Medication Name Sig Start Date Stop Date Notes Rosuvastatin Calcium 40 MG 1 tablet Oral ly Once a day for 30 days Next Appt Details Provider Name:Nikita Rhodes ier, 09/13/2025 08:00:00 AM, [address] [place] [address], [place] [address], [place], [place], [phone], Provider Name:Nikita Son Carmelo ier, 09/20/2025 07:30:00 AM, [address] [place] [address], [place] [address], [place], [place], [phone], Provider Name:Nikita Son Carmelo ier, 03/21/2026 07:00:00 AM, [address] [place] [address], [place] [address], [place], [place], [phone], Provider Name:Nikita Rhodes ier, 03/28/2026 08:00:00 AM, [address] [place] [address], [place] [address], [place], [place], [phone], Progress Notes * Rizwana DIAZ MDOB:[birth year] (74 yo F)Acc No.[id number]:02/12/2025 Patient: Rizwana WEISS :1950 A ge:74 Y S ex:Female Address:[address] [place] [address] [place] [address] * Refills Refill Rosuvastatin Calcium Tablet, 40 MG, Orally, 30, 1 tablet, Once a day, 30 days, Refills=5 * true * Date: Generated for Jermaine hutchinson/Zuri/eTransmitting on: 1 01:06 PM EDT
--- OUTSIDE RECORDS SUMMARY | 2025-02-20 06:30 | XMS_ITS ---
Author Organization Nikita Patel MD Address [address] [place] [phone] Care Team Providers Care Basket Maker Name Role Phone Nikita Patel Primary Care Provider REASON FOR VISIT HDF Immunizations Vaccine Route Administration Date Status Comme nts Influenza High Dose IM Intramuscular 02/20/2025 Administer ed Social History Sex Assigned At : Social History Observation Description Sex Assigned At Female Encounters Encounter Location Date Provider Diagnosis Nikita Patel MD [address] [place] [phone] 02/20/2025 Nikita Patel Encounter for administration of vaccine Z23 Assessments Encounter Date Diagnosis (ICD Code) Assessment Notes Treatment Notes Treatment Clinical Notes Section Notes 02/20/2025 Encounter for administration of vaccine (ICD-10 - Z23) Plan Of Treatment Next Appt Details Provider Name:Nikita Rhodes ier, 09/13/2025 08:00:00 AM, [facility], [address] [facility], [place], [place], [phone], Provider Name:Nikita Rhodes ier, 09/20/2025 07:30:00 AM, [address] [facility], [address] [facility], [place], [phone], Provider Name:Nikita Rhodes ier, 03/21/2026 07:00:00 AM, [address] [facility], [address] [facility], [place], [place], [phone], Provider Name:Nikita Rhodes ier, 03/28/2026 08:00:00 AM, [address] [place] [address], [address] [facility], [place], [place], [phone], Progress Notes * Rizwana DIAZ MDOB:[birth year] (74 yo F)Acc No.[id number]:02/20/2025 Progress Note Patient: Naheed WEISSne Roberto Provider: Jackie Patel MD :1950 A ge:74 Y S ex:Female Date:02/20/2025 Address:[address] [place] [address] [place] , [id number] Subjective: * Chief Complaints: * 1 . HDF. * Medical History: Objective: * Vitals: Assessment: * Assessment: 1. E ncounter for administration of vaccine - Z23 (Primary) Plan: * Treatment: * Immunizations: Influenza High Dose : 0.5 mL (Dose No:1) (Route: Intramuscular) given by Yee Tamez , Office Staff on Right Deltoid * Procedure Codes: 9 0662 FLU VACC PRSV FREE INC ANTIG, G0008 ADMN FLU VAC NO FEE SCHED SAME DAY * * The named appointment provid er may or may not be the originator of this progress note, and it is not deemed complete until electronically signed by the appointment provider. Sign off status: Pending * Provider: Jackie Patel MD Date: 0 02/20/2025 Generated for Jermaine hutchinson/Zuri/Nisa on: 1 01:05 PM EDT
--- OUTSIDE RECORDS SUMMARY | 2025-03-15 03:00 | XMS_ITS ---
Author Organization Nikita Patel MD Address [address] [place], [place] [phone] Care Team Providers Care Die Maker Stamping Name Role Phone Nikita Patel Primary Care Provider Results Component Value Reference Range Notes Complete Blood Count Auto Di ff Reviewed date:03/15/2025 12:38:28 PM Interpretation: Performing Lab:[facility], [address] [place] [phone] Notes/Report: White Blood Count 7.6 4.8-10.8 X10*3/uL Red Blood Count 4.62 4.20-5.50 X10*6/uL Hemoglobin 13.5 12.0-16.0 g/dl Hematocrit 40.3 37.0-47.0 % Mean Corpuscular Volume 87.2 80.0-98.0 fL Mean Corpuscular Hemoglobin 29.2 27.0-33.0 pg Mean Corpuscular HGB Conc 33.5 31.0-35.0 g/dl Red Cell Distribution Width 13.2 11.0-16.0 % Platelet Count 318 160-400 X10*3/uL Mean Platelet Volume 8.9 9.4-12.3 fL Neutrophils Percent Auto 77.5 45-73 % Imm Gran Pct Auto 0.4 0.0-0.4 % Lymphocytes Percent Auto 13.5 20-40 % Monocytes Percent Auto 7.6 2-11 % Eosinophils Percent Auto 0.5 0-4 % Basophils Percent Auto 0.5 0-2 % NRBC Pct Auto 0.0 0.0-0.2 /100WBC Neutrophils Absolute Auto 5.9 2.0-8.3 x10*3/u L Imm Gran Abs Auto 0.03 0.00-0.03 X10*3/uL Lymphocytes Absolute Auto 1.0 1.2-4.9 X10*3/u L Monocytes Absolute Auto 0.6 0.1-1.2 X10*3/uL Eosinophils Absolute Auto 0.0 0.0-0.4 X10*3/u L Basophils Absolute Auto 0.0 0.0-0.2 X10*3/uL NRBC Abs Auto 0.000 0.0-0.012 X10*3/uL Comprehensive Claude. Panel Fa st Reviewed date:03/15/2025 12:27:58 PM Interpretation: Performing Lab:[facility], [address] [place] [phone] Notes/Report: Sodium 136 135-145 mmol/L Potassium 3.7 3.3-5.1 mmol/L Chloride 100 96-108 mmol/L Carbon Dioxide 29 22-29 mmol/L Anion Gap 11 12-20 Blood Urea Nitrogen 17 9-16 mg/dL Creatinine 0.93 0.5-1.4 mg/dL Estimated Glomerular Filt Rate 59 Chronic Kidney Disease: Estimated GFR < 60 mL/min/1.73m2 Severe Kidney Disease: Estimated GFR < 15 mL/min/1.73m2 Glucose Fasting 157 60-99 mg/dL A fasting glucose of 126 mg/dl or greater on more than one occasion is considered diagnostic of diabetes. Calcium 10.0 8.4-10.2 mg/dL Bilirubin Total 0.4 0.0-1.0 mg/dL Aspartate Amino Transferase 24 5-31 U/L Alanine Aminotransferase 18 0-31 U/L Total Protein 7.2 6.5-8.0 g/dL Albumin Level 4.5 3.5-5.0 g/dL Alkaline Phosphatase 81 39-117 U/L Lipid Panel Reviewed date:03/15/2025 12:29:19 PM Interpretation: Performing Lab:[address] [phone] Notes/Report: Triglycerides 125 <150 mg/dL Desirable Triglyceride: less than 150 mg/dL Borderline High Triglyceride 150-199 mg/dL High Triglyceride: 200-499 mg/dL Very High Triglyceride: greater than or equal to 5OO mg/dL Cholesterol 149 <200 mg/dL Desirable Cholesterol: less than 200 mg/dL Borderline High Cholesterol: 200-239 mg/dL High Cholesterol: greater than 239 mg/dL LDL Cholesterol Calculated 57 <100 mg/dL Desirable LDL: less than 100 mg/dL Near Optimal/Above Optimal LDL: 110-129 mg/dL Borderline High LDL: 130-159 mg/dL High LDL: 160-189 mg/dL Very High LDL: greater than or equal to 190 mg/dL HDL Cholesterol 67 >40 mg/dL Desirable HDL: greater than 40 mg/dL Note: This HDL assay may give artificially low results in patients with liver disease. Vitamin D 25-OH Total Reviewed date:03/15/2025 12:28:42 PM Interpretation: Performing Lab:[address] [phone] Notes/Report: Vitamin D 25-OH Total 55.6 >30 ng/mL Health Based Reference Values* < 20 ng/mL Deficient 20-30 ng/mL Insufficient > 30 ng/mL Sufficient *Supriya STRANGE. N Engl J Med. 2007;357:266-280 There is no well-established upper level of normal vitamin D levels. Some laboratories use 50 ng/mL as an upper limit of normal. However, toxicity is patient-dependent and may occur at any level. Careful correlation with the patient's presentation is necessary and, if there is concern for vitamin D toxicity, treatment should be considered irrespective of the serum level. Care must be taken in interpreting Vitamin D results from different laboratories and methodologies. Published data demonstrated that results from patients undergoing hemodialysis may show a negative bias when tested with various automated 25-OH vitamin D assays when compared to LC-MS/MS. When testing samples from patients whose predominant form of Vitamin D is Vitamin D2, such as patients receiving Vitamin D2 supplementation, results that are subtherapeutic should be confirmed with another method such as LC-MS/MS. TSH reflex Free T4 Reviewed date:03/15/2025 12:28:15 PM Interpretation: Performing Lab:[address] [phone] Notes/Report: TSH reflex Free T4 1.21 0.32-4.0 uIU/mL Hemoglobin A1c Reviewed date:03/15/2025 12:28:07 PM Interpretation: Performing Lab:[facility], [address] [place] [phone] Notes/Report: Hemoglobin A1c % 6.9 <6.0 % Hemoglobin A1C Reference Range Adults: 4.8 - 6.0 % Non diabetic: < 6.0 % Goal: < 7.0 % Additional Action Suggested: > 8.0 % Note: Hemoglobin A1c results are invalid for patients with abnormal amounts of HbF. Blood transfusions may impact the HbA1c concentration in the patient sample. Estimated Average Glucose 151 eAG = Estimated average glucose which is %A1C expressed as average glucose, using the formula of the J0W-Zbvntke Average Glucose study (ADAG), Diabetes Care, Vol.31,#8, Jan. 2007 REASON FOR VISIT yearly fasting labs Social History Sex Assigned At : Social History Observation Description Sex Assigned At Female Encounters Encounter Location Date Provider Diagnosis Nikita Patel MD [address] [place] [address] Drive [address] [place], [place] [phone] 03/15/2025 Nikita Patel Essential hypertensi on I10 ; Acquired hypothyroidism E03.9 ; Labile hypertension I10 ; Pure hypercholesterolemia E78.00 ; Vitamin D deficiency E55.9 and Type 2 diabetes mellitus without complication, without long-term current use of insulin E11.9 Assessments Encounter Date Diagnosis (ICD Code) Assessment Notes Treatment Notes Treatment Clinical Notes Section Notes 03/15/2025 Essential hypertensi on (ICD-10 - I10) 03/15/2025 Acquired hypothyroid ism (ICD-10 - E03.9) 03/15/2025 Labile hypertension (ICD-10 - I10) 03/15/2025 Pure hypercholesterolemia (ICD-10 - E78.00) 03/15/2025 Vitamin D deficiency (ICD-10 - E55.9) 03/15/2025 Type 2 diabetes donavan itus without complication, without long-term current use of insulin (ICD-10 - E11.9) Plan Of Treatment Pending Test Test Name Order Date Microalbumin, Random 03/15/2025 UA ClnCatch+Micro w/rflx Cult 03/15/2025 Next Appt Details Provider Name:Nikita Rhodes ier, 09/13/2025 08:00:00 AM, [address] [place] [address], [address], [phone], Provider Name:Nikita Rhodes ier, 09/20/2025 07:30:00 AM, [address] [place] [address], [address], [phone], Provider Name:Nikita Rhodes ier, 03/21/2026 07:00:00 AM, [address] [place] [address], [address] [place] [address], [phone], Provider Name:Nikita Rhodes ier, 03/28/2026 08:00:00 AM, [address] [place] [address], [address] [place] [address], [phone], Progress Notes * Rizwana DIAZ MDOB:[birth year] (74 yo F)Acc No.[id number]:03/15/2025 Progress Note Patient: Rizwana WEISS Provider: Jackie Patel MD :1950 A ge:74 Y S ex:Female Date:03/15/2025 Address:[address] [place], [place] [address], [place] Subjective: * Chief Complaints: * 1 . Yearly fasting labs. * Medical History: Objective: * Vitals: Assessment: * Assessment: 1. E ssential hypertension - I10 (Primary) 2 . A cquired hypothyroidism - E03.9 3 . L abile hypertension - I10 4 . P ure hypercholesterolemia - E78.00 5 . V itamin D deficiency - E55.9 6 . T ype 2 diabetes mellitus without complication, without long-term current use of insulin - E11.9 ? Plan: * Treatment: 2. A cquired hypothyroidism L AB: Microalbumin, Random L AB: UA ClnCatch+Micro w/rflx Cult L AB: Complete Blood Count Auto Diff (Collection Date & Time - 03/15/2025 07:00 AM) L AB: Comprehensive Claude. Panel Fast (Collection Date & Time - 03/15/2025 07:00 AM) L AB: Lipid Panel (Collection Date & Time - 03/15/2025 07:00 AM) L AB: Vitamin D 25-OH Total (Collection Date & Time - 03/15/2025 07:00 AM) L AB: TSH reflex Free T4 (Collection Date & Time - 03/15/2025 07:00 AM) L AB: Hemoglobin A1c (Collection Date & Time - 03/15/2025 07:00 AM) 3. L abile hypertension L AB: Microalbumin, Random L AB: UA ClnCatch+Micro w/rflx Cult L AB: Complete Blood Count Auto Diff (Collection Date & Time - 03/15/2025 07:00 AM) L AB: Comprehensive Claude. Panel Fast (Collection Date & Time - 03/15/2025 07:00 AM) L AB: Lipid Panel (Collection Date & Time - 03/15/2025 07:00 AM) L AB: Vitamin D 25-OH Total (Collection Date & Time - 03/15/2025 07:00 AM) L AB: TSH reflex Free T4 (Collection Date & Time - 03/15/2025 07:00 AM) L AB: Hemoglobin A1c (Collection Date & Time - 03/15/2025 07:00 AM) 4. P ure hypercholesterolemia L AB: Microalbumin, Random L AB: UA ClnCatch+Micro w/rflx Cult L AB: Complete Blood Count Auto Diff (Collection Date & Time - 03/15/2025 07:00 AM) L AB: Comprehensive Claude. Panel Fast (Collection Date & Time - 03/15/2025 07:00 AM) L AB: Lipid Panel (Collection Date & Time - 03/15/2025 07:00 AM) L AB: Vitamin D 25-OH Total (Collection Date & Time - 03/15/2025 07:00 AM) L AB: TSH reflex Free T4 (Collection Date & Time - 03/15/2025 07:00 AM) L AB: Hemoglobin A1c (Collection Date & Time - 03/15/2025 07:00 AM) 5. V itamin D deficiency L AB: Microalbumin, Random L AB: UA ClnCatch+Micro w/rflx Cult L AB: Complete Blood Count Auto Diff (Collection Date & Time - 03/15/2025 07:00 AM) L AB: Comprehensive Claude. Panel Fast (Collection Date & Time - 03/15/2025 07:00 AM) L AB: Lipid Panel (Collection Date & Time - 03/15/2025 07:00 AM) L AB: Vitamin D 25-OH Total (Collection Date & Time - 03/15/2025 07:00 AM) L AB: TSH reflex Free T4 (Collection Date & Time - 03/15/2025 07:00 AM) L AB: Hemoglobin A1c (Collection Date & Time - 03/15/2025 07:00 AM) 6. T ype 2 diabetes mellitus without complication, without long-term current use of insulin L AB: Microalbumin, Random L AB: UA ClnCatch+Micro w/rflx Cult L AB: Complete Blood Count Auto Diff (Collection Date & Time - 03/15/2025 07:00 AM) L AB: Comprehensive Claude. Panel Fast (Collection Date & Time - 03/15/2025 07:00 AM) L AB: Lipid Panel (Collection Date & Time - 03/15/2025 07:00 AM) L AB: Vitamin D 25-OH Total (Collection Date & Time - 03/15/2025 07:00 AM) L AB: TSH reflex Free T4 (Collection Date & Time - 03/15/2025 07:00 AM) L AB: Hemoglobin A1c (Collection Date & Time - 03/15/2025 07:00 AM) * Procedure Codes: 3 6415 VENIPUNCT, ROUTINE* * * The named appointment provid er may or may not be the originator of this progress note, and it is not deemed complete until electronically signed by the appointment provider. Sign off status: Pending * Provider: Jackie Patel MD Date: 0 03/15/2025 Generated for Jermaine hutchinson/Zuri/Nisa on: 1 01:07 PM EDT
--- OUTSIDE RECORDS SUMMARY | 2025-03-22 04:30 | XMS_ITS ---
Author Organization Nikita Patel MD Address [address] [place], [place] [id number] Care Team Providers Care Lens Hardener Name Role Phone Nikita Patel Primary Care Provider [phone] Allergies Allergen (clinical drug ingredient) Drug/Non Drug Allergy documented on EMR Reaction Allergy Type Onset Date Status moxifloxacin Avelox (uncoded) fatigue Allergy Active Results Component Value Reference Range Notes Microalbumin, Random Reviewed date:03/22/2025 12:31:38 PM Interpretation: Performing Lab:[facility], [address] [place] [phone] Notes/Report: Creatinine Urine 57.15 Microalbumin Urine 94.0 Microalbum/Creatinine Ratio Ur 164.4 <30 ug/mg cr Albumin/Creatinine Ratio Reference Ranges: Normal: < 30 ug/mg creatinine Microalbuminuria: 30 - 300 ug/mg creatinine Clinical Albuminuria: > 300 ug/mg creatinine UA ClnCatch+Micro w/rflx Cul t Reviewed date:03/22/2025 12:31:58 PM Interpretation: Performing Lab:[facility], [address] [place] [phone] Notes/Report: Urine, Clean Catch Color Urine Yellow Appearance Urine Clear PH 6.5 5.0-9.0 Glucose Urine UA Negative Negative mg/dL Urine Blood Negative Negative Specific [place] - Urine 1.010 1.005-1.025 Urine Protein 30 (1+) Neg-Trace mg/dL Urine Ketones Negative Negative mg/dL Nitrite Urine Negative Negative Leukocyte Esterase Urine Trace Negative RBC Urine 0-2 0-2 /HPF WBC Urine 6-10 0-5 /HPF Squamous Epithelial Cell Urine 0-2 0-2 /HPF Bacteria Urine None Seen None Seen Hyaline Casts Urine 3-5 0-2 /LPF REASON FOR VISIT review labs Medications Medication SIG (Take, Route, Frequency, Duration) Notes Start Date End Date Status Rosuvastatin Calcium 40 MG 1 tablet Orally Once a day Active Montelukast Sodium 10 MG TAKE 1 TABLET BY MOUTH DAILY IN THE EVENING Active LORazepam 0.5 MG 1 tablet at bedtime as needed Orally Once a day for 10 days 09/18/2024 Active Synthroid 88 MCG 1 tablet in the morning on an empty stomach Orally Once a day no substitution Active Breo Ellipta 200-25 MCG/INH 1 puff Inhalation once a day no substitution Active Ventolin HFA * 108 (90 Base) MCG/ACT 2 puffs as needed Inhalation every 4 hrs Active Ipratropium-Albuterol 0.5-3 (2.5) mg/3 ml 3 ml Inhalation Four times a day 01/15/2012 Active Eliquis 5 MG 1 tablet Orally twic e a day Active Incruse Ellipta 62.5 MCG/ACT 1 puff Inhalation Once a day 08/10/2024 Active Vitamin D (Cholecalciferol) 50 MCG (2000 UT) 1 tablet Orally Once a day 02/23/2019 Active Dilt-XR 180 MG 1 capsule on an empt y stomach in the morning Orally Once a day Active Repatha 140 MG/ML 1 mL Subcutaneous q 2 weeks Active Lisinopril-hydroCHLOR Othiazide 10-12.5 MG TAKE 1 TABLET BY MOUTH DAILY for 90 Active Social History Tobacco Use: Social History Observation [...] ast year? No Points 0 Interpretation Negative Vital Signs Blood pressure systolic 122 mm Hg 03/22/20 25 Blood pressure diastolic 50 mm Hg 025 Height 64 in 03/22/2025 Weight 109 lbs 03/22/2025 BMI 18.71 kg/m2 03/22/2025 Encounters Encounter Location Date Provider Diagnosis Nikita Patel MD [address] [place] [address] [address] [place], [place] [phone] 03/22/2025 Nikita Patel Essential hypertensi on I10 ; Type 2 diabetes mellitus without complication, without long-term current use of insulin E11.9 ; Acquired hypothyroidism E03.9 ; Panlobular emphysema J43.1 ; Pure hypercholesterolemia E78.00 ; Vitamin D deficiency E55.9 and Depression screening Z13.31 Assessments Encounter Date Diagnosis (ICD Code) Assessment Notes Treatment Notes Treatment Clinical Notes Section Notes 03/22/2025 Essential hypertensi on (ICD-10 - I10) stable, will continue current regiment 03/22/2025 Type 2 diabetes donavan itus without complication, without long-term current use of insulin (ICD-10 - E11.9) will contnue to monitor 03/22/2025 Acquired hypothyroid ism (ICD-10 - E03.9) stable, will continue current regimeny 03/22/2025 Panlobular emphysema (ICD-10 - J43.1) stable, will continue current regiment 03/22/2025 Pure hypercholesterolemia (ICD-10 - E78.00) stable, will continue current regiment 03/22/2025 Vitamin D deficiency (ICD-10 - E55.9) stable, will continue current regiment 03/22/2025 Depression screening (ICD-10 - Z13.31) negative screen Plan Of Treatment Medication Medication Name Sig Start Date Stop Date Notes Rosuvastatin Calcium 40 MG 1 tablet Orally Once a day Montelukast Sodium 10 MG TAKE 1 TABLET B Y MOUTH DAILY IN THE EVENING Synthroid 88 MCG 1 tablet in the morn ing on an empty stomach Orally Once a day no substitution Breo Ellipta 200-25 MCG/INH 1 puff Inhalation once a day no substitution Ventolin HFA * 108 (90 Base) MCG/ACT 2 puffs as needed Inhalation every 4 hrs Ipratropium-Albuterol 0.5-3 (2.5) mg/3 ml 3 ml Inhalation Four times a day 01/15/2012 Incruse Ellipta 62.5 MCG/ACT 1 puff Inhalation Once a day 08/10/2024 Vitamin D (Cholecalciferol) 50 MCG (1999 UT) 1 tablet Orally Once a day 02/23/2019 Dilt-XR 180 MG 1 capsule on an empt y stomach in the morning Orally Once a day Repatha 140 MG/ML 1 mL Subcutaneous q 2 weeks Treatment Notes Assessment Notes Essential hypertension stable, will cont inue current regiment Type 2 diabetes mellitus wit hout complication, without long-term current use of insulin will contnue to monitor Acquired hypothyroidism stable, will con tinue current regimeny Panlobular emphysema stable, will contin ue current regiment Pure hypercholesterolemia stable, will c ontinue current regiment Vitamin D deficiency stable, will contin ue current regiment Depression screening negative screen Next Appt Details Follow Up: 6 Months, Reason: Provider Name:Nikita moncada, 09/13/2025 08:00:00 AM, [address] [place] [address], [address], [phone], Provider Name:Nikita moncada, 09/20/2025 07:30:00 AM, [address] [place] [address], [address], [phone], Provider Name:Nikita moncada, 03/21/2026 07:00:00 AM, [address] [place] [address], [address], [phone], Provider Name:Nikita moncada, 03/28/2026 08:00:00 AM, [address] [place] [address], [address], [phone], Progress Notes * Rizwana DIAZ MDOB:[birth year] (74 yo F)Acc No.[id number]:03/22/2025 Patient: Rizwana WEISS Provider: Jackie Patel MD :1950 A ge:74 Y S ex:Female Date:03/22/2025 Address:[address] [place] , [id number] Subjective: * Chief Complaints: * 1 . Review labs. * HPI: C ommunication Needs: Communication Needs D oes the patient have a hearing impairment N o, D oes the patient have a vision impairment? Y es, I f yes, what is the vision impairment? G lasses, D oes the patient have a cognition impairment? N o. F all Risk: History H ave you had any falls with injury in the past year? N o, H ave you had two or more falls in the past year? N o. S QUINN Questions: SDOH Questions I n the past year have you been worried about losing housing? N o, I n the past year have you or any family members you live with been unable to get any of the following when it was really needed? Check all that apply: N one. S ymptom(s): patientis a 74 yo female here for review of recent labs and follow up of chronic issues. D epression Screening: PHQ-9 L ittle interest or pleasure in doing things N ot at all, F eeling down, depressed, or hopeless N ot at all, T rouble falling or staying asleep, or sleeping too much N ot at all, F eeling tired or having little energy N ot at all, P oor appetite or overeating N ot at all, F eeling bad about yourself or that you are a failure, or have let yourself or your family down N ot at all, T rouble concentrating on things, such as reading the newspaper or watching television N ot at all, M oving or speaking so slowly that other people could have noticed; or the opposite, being so fidgety or restless that you have been moving around a lot more than usual N ot at all, T houghts that you would be better off or of hurting yourself in some way N ot at all, T otal Score 0 . I nterpretation and Intervention D epression Screening Findings N egative, F ollow-Up for Depression : review of PHQ-9 found negative result, no follow-up needed. * ROS: G eneral/Constitutional: Change in appetite d enies. C hills d enies. F ever d enies. O phthalmologic: Blurred vision d enies. D ischarge d enies. P ain d enies. E NT: Decreased hearing d enies. S ore throat d enies.?Swollen glands d enies. E ndocrine: Cold intolerance d enies. E xcessive thirst d enies. H eat intolerance d enies. W eight loss d enies. R espiratory: Cough d enies. S hortness of breath at rest d enies. S hortness of breath with exertion d enies. W heezing d enies. C ardiovascular: Chest pain at rest d enies. C hest pain with exertion?denies. I rregular heartbeat d enies. S hortness of breath d enies. ? G astrointestinal: Abdominal pain d enies. C hange in bowel habits d enies. D iarrhea d enies. N ausea d enies. R ectal bleeding d enies. V omiting d enies . G enitourinary: Blood in urine d enies. D ifficulty urinating d enies. F requent urination d enies. U rinary incontinence D enies. M usculoskeletal: Painful joints d enies. W eakness d enies. ? S kin: Dry skin d enies. I tching d enies. D enies?Mole(s), changes in moles, new moles or any lesions of concern. D enies P hotosensitivity. R marilyn d enies. N eurologic: Dizziness d enies. F ainting d enies. H eadache?denies. * Medical History: A sthma - mild intermittent, Hyperthyroidism, Hypercholesterolemia, Pre diabetes, Breast cancer, colonoscopy 2012 due in 5 years; colonoscopy done 01/11/[address] Elena - NO FURTHER TESTING PER DR ELENA, Cervix and Uterus absent. * Family History: F ather: 89 yrs, prostate cancer. M other: 66 yrs, [place]. 3 sister(s) . . Father- unknown Mother stroke, Denies mental health/substance abuse family history, Denies mental health/substance abuse family history, Denies mental health/substance abuse family history, No pertinent family medical history. * Social History: T obacco Use: T obacco Use/Smoking P atient is a f ormer smoker, H ow long has it been since you last smoked? > 10 years, A dditional Findings: Tobacco Non-User F ormer smoker, currently using no form of tobacco. D rugs/Alcohol: A lcohol Screen D id you have a drink containing alcohol in the past year? N o, P oints 0 , I nterpretation N egative. M iscellaneous: C affeine: yes, frequency:, 1-2 cups per day. Children: no. Community involvements: no. Exercise: yes, free weights squats. Home smoke detector use: yes. Housing: owning. Living with: spouse. Marital status: . Occupation: retired. Pets: none. * Medications: T aking Eliquis 5 MG Tablet 1 tablet Orally twice a day , Taking Vitamin D (Cholecalciferol) 50 MCG (2000 UT) Capsule 1 tablet Orally Once a day , Taking LORazepam 0.5 MG Tablet 1 tablet at bedtime as needed Orally Once a day , Taking Repatha 140 MG/ML Solution Prefilled Syringe 1 mL Subcutaneous q 2 weeks , Taking Dilt-XR 180 MG Capsule Extended Release 24 Hour 1 capsule on an empty stomach in the morning Orally Once a day , Taking Ventolin HFA * 108 (90 Base) MCG/ACT Aerosol Solution 2 puffs as needed Inhalation every 4 hrs , Taking Breo Ellipta 200-25 MCG/INH Aerosol Powder Breath Activated 1 puff Inhalation once a day , Notes to Pharmacist: no substitution, Taking Incruse Ellipta 62.5 MCG/ACT Aerosol Powder Breath Activated 1 puff Inhalation Once a day , Taking Ipratropium-Albuterol 0.5-3 (2.5) mg/3 ml Solution 3 ml Inhalation Four times a day , Taking Synthroid 88 MCG Tablet 1 tablet in the morning on an empty stomach Orally Once a day , Notes to Pharmacist: no substitution, Taking Montelukast Sodium 10 MG Tablet TAKE 1 TABLET BY MOUTH DAILY IN THE EVENING , Taking Rosuvastatin Calcium 40 MG Tablet 1 tablet Orally Once a day , Taking Lisinopril-hydroCHLOROthiazide 10-12.5 MG Tablet TAKE 1 TABLET BY MOUTH DAILY , Discontinued Spiriva Respimat 2.5 MCG/ACT Aerosol Solution 2 puffs Inhalation Once a day , Medication List reviewed and reconciled with the patient * Allergies: A velox: fatigue. Objective: * Vitals: H t: 64, Wt: 109, BMI:18.71, BP:122/50, Wt-k.44. * P ast Orders: L ab:Lipid Panel (Order Date - 03/15/2025) (Collection Date & Time - 03/15/2025 07:00 AM) Value Reference Range Triglycerides 125 <150 - mg/dL Cholesterol 149 <200 - mg/dL LDL Cholesterol Calculated 57 <100 - mg/dL HDL Cholesterol 67 >40 - mg/dL L ab:Vitamin D 25-OH Total (Order Date - 03/15/2025) (Collection Date & Time - 03/15/2025 07:00 AM) Value Reference Range Vitamin D 25-OH Total 55.6 >30 - ng/mL L ab:TSH reflex Free T4 (Order Date - 03/15/2025) (Collection Date & Time - 03/15/2025 07:00 AM) Value Reference Range TSH reflex Free T4 1.21 0.32-4.0 - uIU/mL L ab:Hemoglobin A1c (Order Date - 03/15/2025) (Collection Date & Time - 03/15/2025 07:00 AM) Value Reference Range Hemoglobin A1c % 6.9 H <6.0 - % Estimated Average Glucose 151 - mg/dL L ab:Complete Blood Count Auto Diff (Order Date - 03/15/2025) (Collection Date & Time - 03/15/2025 07:00 AM) Value Reference Range White Blood Count 7.6 4.8-10.8 - X10*3/uL Red Blood Count 4.62 4.20-5.50 - X10*6/uL Hemoglobin 13.5 12.0-16.0 - g/dl Hematocrit 40.3 37.0-47.0 - % Mean Corpuscular Volume 87.2 80.0-98.0 - fL Mean Corpuscular Hemoglobin 29.2 27.0-33.0 - pg Mean Corpuscular HGB Conc 33.5 31.0-35.0 - g/ dl Red Cell Distribution Width 13.2 11.0-16.0 - % Platelet Count 318 160-400 - X10*3/uL Mean Platelet Volume 8.9 L 9.4-12.3 - fL Neutrophils Percent Auto 77.5 H 45-73 - % Imm Gran Pct Auto 0.4 0.0-0.4 - % Lymphocytes Percent Auto 13.5 L 20-40 - % Monocytes Percent Auto 7.6 2-11 - % Eosinophils Percent Auto 0.5 0-4 - % Basophils Percent Auto 0.5 0-2 - % NRBC Pct Auto 0.0 0.0-0.2 - /100WBC Neutrophils Absolute Auto 5.9 2.0-8.3 - x10* 3/uL Imm Gran Abs Auto 0.03 0.00-0.03 - X10*3/uL Lymphocytes Absolute Auto 1.0 L 1.2-4.9 - X10* 3/uL Monocytes Absolute Auto 0.6 0.1-1.2 - X10*3/ uL Eosinophils Absolute Auto 0.0 0.0-0.4 - X10* 3/uL Basophils Absolute Auto 0.0 0.0-0.2 - X10*3/ uL NRBC Abs Auto 0.000 0.0-0.012 - X10*3/uL L ab:Comprehensive S[place]heimer. Panel Fast (Order Date - 03/15/2025) (Collection Date & Time - 03/15/2025 07:00 AM) Value Reference Range Sodium 136 135-145 - mmol/L Bilirubin Total 0.4 0.0-1.0 - mg/dL Aspartate Amino Transferase 24 5-31 - U/L Alanine Aminotransferase 18 0-31 - U/L Total Protein 7.2 6.5-8.0 - g/dL Albumin Level 4.5 3.5-5.0 - g/dL Alkaline Phosphatase 81 39-117 - U/L Potassium 3.7 3.3-5.1 - mmol/L Chloride 100 96-108 - mmol/L Carbon Dioxide 29 22-29 - mmol/L Anion Gap 11 L 12-20 - Blood Urea Nitrogen 17 H 9-16 - mg/dL Creatinine 0.93 0.5-1.4 - mg/dL Estimated Glomerular Filt Rate 59 - Glucose Fasting 157 H 60-99 - mg/dL Calcium 10.0 8.4-10.2 - mg/dL * Examination: G eneral Examination: GENERAL APPEARANCE: w ell developed, well nourished, in no acute distress. HEAD: n ormocephalic, atraumatic. EYES: p upils equal, round, reactive to light and accommodation, sclera non-icteric. EARS: n ormal. ORAL CAVITY: m ucosa moist. THROAT: c lear. NECK/THYROID: n arnav supple, full range of motion, no cervical lymphadenopathy, no bruits. SKIN: w arm and dry, no suspicious lesions. HEART: r egular rate and rhythm, S1, S2 normal, no murmurs.? LUNGS: c lear to auscultation bilaterally. BREASTS: d one by director of special services. ABDOMEN: s oft, nontender, nondistended, bowel sounds present, normal, no organomegaly , no masses palpable. RECTAL EXAM: d one by director of special services. FEMALE GENITOURINARY: d one by director of special services. EXTREMITIES: n o clubbing, cyanosis, or edema. NEUROLOGIC: n onfocal, motor strength normal upper and lower extremities, sensory exam intact. Assessment: * Assessment: 1. E ssential hypertension - I10 (Primary) 2 . T ype 2 diabetes mellitus without complication, without long-term current use of insulin - E11.9 3 . A cquired hypothyroidism - E03.9 4 . P anlobular emphysema - J43.1 5 . Pure hypercholesterolemia - E78.00 6 . V itamin D deficiency - E55.9 ? 7 . D epression screening - Z13.31 Plan: * Treatment: 2. T ype 2 diabetes mellitus without complication, without long-term current use of insulin L AB: Microalbumin, Random (Collection Date & Time - 03/22/2025 08:30 AM) L AB: UA ClnCatch+Micro w/rflx Cult (Collection Date & Time - 03/22/2025 08:30 AM) Notes: will contnue to monitor 3. A cquired hypothyroidism Continue Synthroid Tablet, 88 MCG, 1 tablet in the morning on an empty stomach, Orally, Once a day, Notes to Pharmacist: no substitution. Notes: stable, will continue current regimeny 4. P anlobular emphysema Continue Ventolin HFA * Aerosol Solution, 108 (90 Base) MCG/ACT, 2 puffs as needed, Inhalation, every 4 hrs; C ontinue Breo Ellipta Aerosol Powder Breath Activated, 200-25 MCG/INH, 1 puff, Inhalation, once a day, Notes to Pharmacist: no substitution; C ontinue Incruse Ellipta Aerosol Powder Breath Activated, 62.5 MCG/ACT, 1 puff, Inhalation, Once a day; C ontinue Ipratropium-Albuterol Solution, 0.5-3 (2.5) mg/3 ml, 3 ml, Inhalation, Four times a day; C ontinue Montelukast Sodium Tablet, 10 MG, TAKE 1 TABLET BY MOUTH DAILY IN THE EVENING. Notes: stable, will continue current regiment 5. P ure hypercholesterolemia Continue Repatha Solution Prefilled Syringe, 140 MG/ML, 1 mL, Subcutaneous, q 2 weeks; C ontinue Rosuvastatin Calcium Tablet, 40 MG, 1 tablet, Orally, Once a day. Notes: stable, will continue current regiment 6. V itamin D deficiency Continue Vitamin D (Cholecalciferol) Capsule, 50 MCG (2000 UT), 1 tablet, Orally, Once a day. ? Notes: stable, will continue current regiment 7. D epression screening Notes: negative screen * Preventive Medicine: Diabetes Care Plan: P atient Lifestyle Goals N eeds to maintain diet control.?Treatment Goals A 1C< 7. B arriers N o specific barriers, doing well. S elf-Managment Plan I ncrease light exercise to 3 times a week for 30 minutes. E xpected Outcome maintaining stable blood sugar levels within a target range. COPD Care Plan: P atient Lifestyle Goals R elieve symptoms and improve quality of life. T reatment Goals t janis medicine exactly as precribed and plan for RX refills. B arriers N o Specific barriers. E xpected Outcome r educing the frequency and severity of exacerbations. * Follow Up: 6 Months * * The named appointment provid er may or may not be the originator of this progress note, and it is not deemed complete until electronically signed by the appointment provider. Sign off status: Pending * Provider: Jackie Patel MD Date: Generated for Jermaine Joiner/Nisa on: 01:06 PM EDT History and Physical Notes * HPI (History of Present Illness) Category Sub-Category Detail Notes Category Not es Symptom(s) patientis a 74 yo female here for review of recent labs and follow up of chronic issues Depression Screening PHQ-9 Little inte rest or pleasure in doing things: Not at all Feeling down, depressed, or hopeless: No t at all Trouble falling or staying asleep, or sl eeping too much: Not at all Feeling tired or having little energy: N ot at all Poor appetite or overeating: Not at all Feeling bad about yourself o r that you are a failure, or have let yourself or your family down: Not at all Trouble concentrating on thi ngs, such as reading the newspaper or watching television: Not at all Moving or speaking so slowly that other people could have noticed; or the opposite, being so fidgety or restless that you have been moving around a lot more than usual: Not at all Thoughts that you would be b maria elena off or of hurting yourself in some way: Not at all Total Score: 0 Interpretation and Intervention Depression Ange farley Findings: Negative Follow-Up for Depression: : review of PH Q-9 found negative result, no follow-up needed SDOH Questions SDOH Questions In the past year have you been worried about losing housing?: No In the past year have you or any family members you live with been unable to get any of the following when it was really needed? Check all that apply:: None Fall Risk History Have you had any falls with injury i n the past year?: No Have you had two or more falls in the st year?: No Communication Needs Communication Needs Does the patient have a hearing impairment: No Does the patient have a vision impairmen t?: Yes If yes, what is the vision impairment?: Glasses Does the patient have a cognition impair ment?: No Examination Category Sub-Category Detail Notes Category Not es General Examination GENERAL APPEARANCE: well dev eloped, well nourished, in no acute distress HEAD: normocephalic, atrau matic EYES: pupils equal, round, reactive to light and accommodation, sclera non-icteric EARS: normal THROAT: clear NECK/THYROID: neck supple, full ra nge of motion, no cervical lymphadenopathy, no bruits HEART: regular rate and rhy thm, S1, S2 normal, no murmurs LUNGS: clear to auscultatio n bilaterally ABDOMEN: soft, nontender, non distended, bowel sounds present, normal, no organomegaly , no masses palpable NEUROLOGIC: nonfocal, motor stre ngth normal upper and lower extremities, sensory exam intact SKIN: warm and dry, no elsi picious lesions EXTREMITIES: no clubbing, cyanosi s, or edema BREASTS: done by director of special services RECTAL EXAM: done by director of special services FEMALE GENITOURINARY: done by director of special services ORAL CAVITY: mucosa moist
--- OUTSIDE RECORDS SUMMARY | 2025-03-22 04:49 | XMS_ITS ---
Author Organization Nikita Patel MD Address [address] [place] [phone] Care Team Providers Care Embossing Tool Setter Name Role Phone Nikita Patel Primary Care Provider REASON FOR VISIT refill Medications Medication SIG (Take, Route, Frequency, Duration) Notes Start Date End Date Status Lisinopril-hydroCHLOROthia zide 10-12.5 MG TAKE 1 TABLET BY MOUTH DAILY Orally Once a day for 30 days Active Social History Sex Assigned At : Social History Observation Description Sex Assigned At Female Encounters Encounter Location Date Provider Diagnosis Nikita Patel MD [address] [place] [phone] 03/22/2025 Nikita Patel Essential hypertension I10 Assessments Encounter Date Diagnosis (ICD Code) Assessment Notes Treatment Notes Treatment Clinical Notes Section Notes 03/22/2025 Essential hypertension (ICD-10 - I10) Plan Of Treatment Medication Medication Name Sig Start Date Stop Date Notes Lisinopril-hydroCHLOROthiazi de 10-12.5 MG TAKE 1 TABLET BY MOUTH DAILY Orally Once a day for 30 days Next Appt Details Provider Name:Nikita sosar, 09/13/2025 08:00:00 AM, [address] [place] [address], Suite [facility], [place], [place], [phone], Provider Name:Nikita Rhodes ier, 09/20/2025 07:30:00 AM, [address] [place] [address], Suite [facility], [place], [place], [phone], Provider Name:Nikita moncada, 03/21/2026 07:00:00 AM, [address] [place] [address], Suite [facility], [place], [place], [phone], Provider Name:Nikita sosar, 03/28/2026 08:00:00 AM, [address] [place] [address], [place] [address], [place], [place], [phone], Progress Notes * Rizwana DIAZ MDOB:[birth year] (74 yo F)Acc No.[id number]:03/22/2025 Patient: Naheed WEISSne Roberto :1950 A ge:74 Y S ex:Female Address:[address] [place] [address] , [place] [address] * Refills Refill Lisinopril-hydroCHLOROthiazide Tablet, 10-12.5 MG, Orally, 30, TAKE 1 TABLET BY MOUTH DAILY, Once a day, 30 days, Refills=6 * true * Date: Generated for Jermaine huthcinson/Zuri/eTransmitting on: 01:06 PM EDT
[2025-03-22 11:22] LABS: Appearance Urine Clear; Glucose Urine UA Negative (Negative); PH 6.5 (5.0-9.0); Specific Gravity - Urine 1.010 (1.005-1.025); UMIC TRIGGER UACC YES
[2025-03-22 11:26] LABS: UACC Culture Trigger YES
[2025-03-22 12:22] LABS: Microalbum/Creatinine Ratio Ur 164.4 ug/mg cr (<30)
--- OUTSIDE RECORDS SUMMARY | 2025-03-22 13:06 | XMS_ITS | Patient Health Record ---
Author Organization [facility] Address [address] [place] [address] Care Team Providers Care Roofer Assistant Name Role Phone Nikita Patel MD Primary Care Provider Rock Cristina Unavailable [phone] Allergies Allergen (clinical drug ingredient) Drug/Non Drug [...] Problem Status W/U Status Risk Notes Problem 658890084 Encounter for screening for malignant neoplasm of colon (Z12.11) Active confirmed Problem 506421182 History of adenomatous polyp of colon (Z86.010) Active confirmed Problem 11600783 Secondary hypertension (I15.9) Active confirmed Plan Of Treatment Future Test Test Name Order Date COLONOSCOPY 12/17/2011 COLONOSCOPY 10/29/2016 Insurance Providers Payer Name Payer Address Payer Phone Subscriber Number Group Number Insured Name Patient Relationship to Insured Coverage Start Date Coverage End Date MEDICARE OF [place] [address] [place] [id number] ROCK DIAZ Self - patient is the insured [employer] [address] [place] [phone] [id number] ROCK DIAZ Self - patient is the insured Medical (General) History Medical History History ICD Code Screening colonoscopy 05-27-2006--small t ubular adenoma Hyperlipidemia Asthma/COPD Hypothyroidism Denies MD,DM,CVA,renal disease Breast cancer of left breast-Rx'd with l umpectomy and XRT in 2009 Colonoscopy in 12/2011 was ne gative except for diverticulosis and internal hemorrhoids HTN Surgical History Surgery Date(Month/Year) Lumpectomy on left breast with lymph nod e dissection Appy Hysterectomy Cataract-lens implants Tubal ligation
--- OUTSIDE RECORDS SUMMARY | 2025-03-22 13:07 | XMS_ITS | Patient Health Record ---
Author Organization Nikita Patel MD Address [address] [place], [place] [id number] Care Team Providers Care Air Press Operator Name Role Phone Nikita Patel Primary Care Provider Allergies Allergen (clinical drug ingredient) Drug/Non Drug Allergy documented on EMR Reaction Allergy Type Onset Date Status moxifloxacin Avelox (uncoded) fatigue Allergy Active Results Component Value Reference Range Notes Liver Panel Reviewed date:09/11/2024 12:45:51 PM Interpretation: Performing Lab:[facility], [address] [place] [phone] Notes/Report: Bilirubin Total 0.4 0.0-1.0 mg/dL Bilirubin Direct 0.1 0.0-0.5 mg/dL Aspartate Amino Transferase 24 5-31 U/L Alanine Aminotransferase 18 0-31 U/L Total Protein 7.2 6.5-8.0 g/dL Albumin Level 4.3 3.5-5.0 g/dL Alkaline Phosphatase 83 39-117 U/L Glucose Fasting Reviewed date:09/11/2024 12:45:43 PM Interpretation: Performing Lab:[facility], [address] [place] [phone] Notes/Report: Glucose Fasting 142 60-99 mg/dL A fasting glucose of 126 mg/dl or greater on more than one occasion is considered diagnostic of diabetes. Lipid Panel with Reflex Reviewed date:09/11/2024 12:54:01 PM Interpretation: Performing Lab:[facility], [address] [place] [phone] Notes/Report: Triglycerides 146 <150 mg/dL Desirable Triglyceride: [...] A1c Reviewed date:09/11/2024 12:45:35 PM Interpretation: Performing Lab:[facility], [address] [place] [phone] Notes/Report: Hemoglobin A1c % 6.7 <6.0 % [...] average glucose, using the formula of the X1K-Osodakh Average Glucose study (ADAG), Diabetes Care, Vol.31,#8, 2007 Complete Blood Count Auto Di ff Reviewed date:03/15/2025 12:38:28 PM Interpretation: Performing Lab:[address] [phone] Notes/Report: White Blood Count 7.6 4.8-10.8 X10*3/uL [...] NRBC Abs Auto 0.000 0.0-0.012 X10*3/uL Comprehensive [place]. Panel Fa st Reviewed date:03/15/2025 12:27:58 PM Interpretation: Performing Lab:[facility], [address] [place] [phone] Notes/Report: Sodium 136 135-145 mmol/L Potassium 3.7 [...] Panel Reviewed date:03/15/2025 12:29:19 PM Interpretation: Performing Lab:[address] [phone] Notes/Report: Triglycerides 125 <150 mg/dL Desirable Triglyceride: [...] Total Reviewed date:03/15/2025 12:28:42 PM Interpretation: Performing Lab:[address] [place] [phone] Notes/Report: Vitamin D 25-OH Total 55.6 >30 [...] T4 Reviewed date:03/15/2025 12:28:15 PM Interpretation: Performing Lab:[facility], [address] [place] [phone] Notes/Report: TSH reflex Free T4 1.21 0.32-4.0 uIU/mL Hemoglobin A1c Reviewed date:03/15/2025 12:28:07 PM Interpretation: Performing Lab:[facility], [address] [place] [phone] Notes/Report: Hemoglobin A1c % 6.9 <6.0 % [...] average glucose, using the formula of the X5G-Sglzqyv Average Glucose study (ADAG), Diabetes Care, Vol.31,#8, 2007 Microalbumin, Random Reviewed date:03/22/2025 12:31:38 PM Interpretation: Performing Lab:[facility], [address] [place] [phone] Notes/Report: Creatinine Urine 57.15 Microalbumin Urine 94.0 Microalbum/Creatinine Ratio Ur 164.4 <30 ug/mg cr Albumin/Creatinine Ratio Reference Ranges: Normal: < 30 ug/mg creatinine Microalbuminuria: 30 - 300 ug/mg creatinine Clinical Albuminuria: > 300 ug/mg creatinine UA ClnCatch+Micro w/rflx Cul t Reviewed date:03/22/2025 12:31:58 PM Interpretation: Performing Lab:[facility], [address] [place] [phone] Notes/Report: Urine, Clean Catch Color Urine Yellow Appearance Urine Clear PH 6.5 5.0-9.0 Glucose Urine UA Negative Negative mg/dL Urine Blood Negative Negative Specific Jackson - Urine 1.010 1.005-1.025 Urine Protein 30 (1+) Neg-Trace mg/dL Urine Ketones Negative Negative mg/dL Nitrite Urine Negative Negative Leukocyte Esterase Urine Trace Negative RBC Urine 0-2 0-2 /HPF WBC Urine 6-10 0-5 /HPF Squamous Epithelial Cell Urine 0-2 0-2 /HPF Bacteria Urine None Seen None Seen Hyaline Casts Urine 3-5 0-2 /LPF MAMMOGRAM DIGITAL BILATERAL SCREEN Reviewed date:05/09/2024 12:42:58 PM Interpretation:Negative Performing Lab: Notes/Report: Negative Junior Stallworth Reviewed date:09/11/2024 12:42:29 PM Interpretation: Performing Lab:[facility], [address] [place] [phone] Notes/Report: Junior Stallworth See Note Specimen held untested for 24 hours; Call to request Chemistry testing. Junior Stallworth Reviewed date:03/15/2025 12:27:39 PM Interpretation: Performing Lab:[facility], [address] [place] [phone] Notes/Report: Junior Stallworth See Note Specimen held untested for 24 hours; Call to request Chemistry testing. Reason For Referral No Information Medications Medication SIG (Take, Route, Frequency, Duration) Notes Start Date End Date Status Vitamin D (Cholecalciferol) 50 MCG (1999 UT) 1 tablet Orally Once a day 02/23/2019 Active Rosuvastatin Calcium 40 MG 1 tablet Orally Once a day Active Breo Ellipta 200-25 MCG/INH 1 puff Inhalation once a day no substitution Active Lisinopril-hydroCHLOR Othiazide 10-12.5 MG TAKE 1 TABLET BY MOUTH DAILY Orally Once a day for 30 days Active Ventolin HFA * 108 (90 Base) MCG/ACT 2 puffs as needed Inhalation every 4 hrs Active Dilt-XR 180 MG 1 capsule on an empt y stomach in the morning Orally Once a day Active Repatha 140 MG/ML 1 mL Subcutaneous q 2 weeks Active Montelukast Sodium 10 MG TAKE 1 TABLET BY MOUTH DAILY IN THE EVENING Active LORazepam 0.5 MG 1 tablet at bedtime as needed Orally Once a day for 10 days 09/18/2024 Active Synthroid 88 MCG 1 tablet in the morning on an empty stomach Orally Once a day no substitution Active Ipratropium-Albuterol 0.5-3 (2.5) mg/3 ml 3 ml Inhalation Four times a day 01/15/2012 Active Eliquis 5 MG 1 tablet Orally twic e a day Active Incruse Ellipta 62.5 MCG/ACT 1 puff Inhalation Once a day 08/10/2024 Active Immunizations Vaccine Route Administration Date Status [...] High Dose IM Intramuscular 03/10/2024 Administer ed Influenza High Dose IM Intramuscular 02/20/2025 Administer ed zzz Unknown 07/03/2013 Pending Flu [...] Notes Problem Malignant neoplasm of female breast (716883004) Malignant neoplasm of breast (female), unspecified site (174.9) Active confirmed Problem 519930092 Atherosclerotic heart disease of [place] coronary artery without angina pectoris (I25.10) Active confirmed Problem 872461860 Lung nodule seen on imaging study (R91.1) Active confirmed Problem Insomnia (247207065) Insomnia (G47.00) Active confirmed Problem 14143952 Vitamin D defici ency (E55.9) Active confirmed Problem 269616219 Paroxysmal atria l fibrillation (I48.0) Active confirmed Problem Malignant tumor of lung (328633009) Malignant neoplasm of unspecified part of unspecified bronchus or lung (C34.90) Active confirmed Problem 32326228 Hypercalcemia (E83.52) Active confirme d Problem 7941721 Panlobular emphy sema (J43.1) Active confirmed Problem Perimenopausal disorder (150408885) Other specified menopausal and perimenopausal disorders (N95.8) Active confirmed Problem 764467429 Tubular adenoma of colon (D12.6) Active confirmed Problem 91870918 Essential hypert ension (I10) Active confirmed Problem 241848352 Acquired hypothyroidism (E03.9) Active confirmed Problem 748632163 Mild intermitten t asthma without complication (J45.20) Active confirmed Problem 27998231 Labile hypertens ion (I10) Active confirmed Problem 349605036 Irregular heart beat (I49.9) Active confirmed Problem 409318126 Lung nodules (R91.8) Active confirmed Problem 33541890 Coronary artery disease involving [place] coronary artery of [place] heart without angina pectoris (I25.10) Active confirmed Problem 861443511 Pure hypercholesterolemia (E78.00) Active confirmed Problem 574959053 Type 2 diabetes mellitus without complication, without long-term current use of insulin (E11.9) Active confirmed Problem 456492219 COPD with exacer bation (J44.1) Active confirmed Problem Adenocarcinoma of left lung (761401244146972 05) Adenocarcinoma of left lung (C34.92) Active confirmed Problem 50184108 COPD without exacerbation (J44.9) Active confirmed Vital Signs Blood pressure diastolic 50 mm Hg 03/22/2025 Height 64 in 03/22/2025 Blood pressure systolic 122 mm Hg 03/22/2025 Weight 109 lbs 03/22/2025 BMI 18.71 kg/m2 03/22/2025 Encounters Encounter Location Date Provider Diagnosis Nikita Patel MD [address] [place] [id number] 09/11/2024 Nikita Patel Pure hypercholestero lemia E78.00 and Type 2 diabetes mellitus without complication, without long-term current use of insulin E11.9 Nikita Patel MD [address] [place] [id number] 02/20/2025 Nikita Patel Encounter for administration of vaccine Z23 Nikita Patel MD [address] [place] [address] Drive [address] [place] [id number] 03/15/2025 Nikita Patel Essential hypertensi on I10 ; Acquired hypothyroidism E03.9 ; Labile hypertension I10 ; Pure hypercholesterolemia E78.00 ; Vitamin D deficiency E55.9 and Type 2 diabetes mellitus without complication, without long-term current use of insulin E11.9 Nikita Patel MD [address] [place] [address] Drive [address] [place] [id number] 03/22/2025 Nikita Patel Essential hypertensi on I10 ; Type 2 diabetes mellitus without complication, without long-term current use of insulin E11.9 ; Acquired hypothyroidism E03.9 ; Panlobular emphysema J43.1 ; Pure hypercholesterolemia E78.00 ; Vitamin D deficiency E55.9 and Depression screening Z13.31 Nikita Patel MD [address] [place] [id number] 09/18/2024 Nikita Patel Insomnia G47.00 ; Panlobular emphysema J43.1 ; Pure hypercholesterolemia E78.00 and Type 2 diabetes mellitus without complication, without long-term current use of insulin E11.9 Nikita Patel MD [address] [place] [id number] 12/18/2024 Nikita Patel Panlobular emphysema J43.1 and Essential hypertension I10 Nikita Patel MD [address] [place] [id number] 08/01/2024 Nikita Patel COPD without exacerb ation J44.9 Nikita Patel MD [address] [place] [id number] 08/10/2024 Nikita Patel MD [address] [place] [id number] 08/24/2024 Nikita Patel MD [address] [place] [id number] 08/24/2024 Nikita Patel COPD without exacerb ation J44.9 Nikita Patel MD [address] [place] [id number] 08/28/2024 Nikita Patel Mild intermittent as thma without complication J45.20 Nikita Patel MD [address] [place] [address] [id number] 08/31/2024 Nikita Patel Essential hypertensi on I10 Nikita Patel MD [address] [place] [id number] 01/23/2025 Nikita Patel Acquired hypothyroid ism E03.9 Nikita Patel MD [address] [place] [id number] 02/12/2025 Nikita Bombardier Pure hypercholestero lemia E78.00 Nikita Patel MD [address] [place], [place] [id number] 03/22/2025 Nikita Patel Essential hypertensi on I10 Assessments Encounter Date Diagnosis (ICD Code) Assessment Notes Treatment Notes Treatment Clinical Notes Section Notes 09/11/2024 Pure hypercholesterolemia (ICD-10 - E78.00) 02/20/2025 Encounter for administration of vaccine (ICD-10 - Z23) 03/15/2025 Essential hypertensi on (ICD-10 - I10) 03/22/2025 Essential hypertensi on (ICD-10 - I10) stable, will continue current regiment 03/22/2025 Type 2 diabetes mellitus without complication, without long-term current use of insulin (ICD-10 - E11.9) will contnue to monitor 09/18/2024 Insomnia (ICD-10 - G47.00) patient verbalized understanding of medication and directions for use 12/18/2024 Panlobular emphysema (ICD-10 - J43.1) stable is going to see pulmonary, will contnue current regiment 08/01/2024 COPD without exacerbation (ICD-10 - J44.9) 08/24/2024 COPD without exacerbation (ICD-10 - J44.9) 08/28/2024 Mild intermittent asthma without complication (ICD-10 - J45.20) 08/31/2024 Essential hypertensi on (ICD-10 - I10) 01/23/2025 Acquired hypothyroid ism (ICD-10 - E03.9) 02/12/2025 Pure hypercholesterolemia (ICD-10 - E78.00) 03/22/2025 Essential hypertensi on (ICD-10 - I10) 09/11/2024 Type 2 diabetes mellitus without complication, without long-term current use of insulin (ICD-10 - E11.9) 03/15/2025 Acquired hypothyroid ism (ICD-10 - E03.9) 03/22/2025 Acquired hypothyroid ism (ICD-10 - E03.9) stable, will continue current regimeny 09/18/2024 Panlobular emphysema (ICD-10 - J43.1) stable, will continue current regiment 12/18/2024 Essential hypertensi on (ICD-10 - I10) is running a little high/ will observe 03/15/2025 Labile hypertension (ICD-10 - I10) 03/22/2025 Panlobular emphysema (ICD-10 - J43.1) stable, will continue current regiment 09/18/2024 Pure hypercholesterolemia (ICD-10 - E78.00) doing well, will contiue current regiment 03/15/2025 Pure hypercholesterolemia (ICD-10 - E78.00) 03/22/2025 Pure hypercholesterolemia (ICD-10 - E78.00) stable, will continue current regiment 09/18/2024 Type 2 diabetes mellitus without complication, without long-term current use of insulin (ICD-10 - E11.9) stable, will continue curent regiment 03/15/2025 Vitamin D deficiency (ICD-10 - E55.9) 03/22/2025 Vitamin D deficiency (ICD-10 - E55.9) stable, will continue current regiment 03/15/2025 Type 2 diabetes mellitus without complication, without long-term current use of insulin (ICD-10 - E11.9) 03/22/2025 Depression screening (ICD-10 - Z13.31) negative screen Plan Of Treatment Pending Test Test Name Order Date Electrocardiogram (EKG) 02/16/2019 MAMMOGRAM DIGITAL BILATERAL SCREEN 01/01 Microalbumin, Random 03/15/2025 UA ClnCatch+Micro w/rflx Cult 03/15/2025 Future Test Test Name Order Date CT CHEST NO CONTRAST 02/17/2021 Next Appt Details Provider Name:Nikita moncada, 09/13/2025 08:00:00 AM, [address] [place] [address], [address], [phone], Provider Name:Nikita moncada, 09/20/2025 07:30:00 AM, [address] [place] [address], [address], [phone], Provider Name:Nikita moncada, 03/21/2026 07:00:00 AM, [address] [place] [address], [address], [phone], Provider Name:Nikita moncada, 03/28/2026 08:00:00 AM, [address], [address], [place], [place], [phone], Insurance Providers Payer Name Payer Address Payer Phone Subscriber Number Group Number Insured Name Patient Relationship to Insured Coverage Start Date Coverage End Date [employer] [address] [place] [address] [id number] Rizwana Arteaga Self - patient is the insured [facility] [address] [place] [address] [id number] Rizwana Arteaga Self - patient is the insured Medical (General) History Medical History History ICD Code asthma - mild intermittent hyperthyroidism hypercholesterolemia Pre diabetes breast cancer colonoscopy 2011 due in 5 ye ars; colonoscopy done 01/11/[address] Elena - NO FURTHER TESTING PER DR ELENA Cervix and Uterus absent
== END 2025-03-22 11:12 | disposition home or self-care (01) ==
LOC: HO.LNP 11:11
PROVIDERS: Visit Provider Internal Medicine
DX: I10 Essential (primary) hypertension (principal); E11.9 Type 2 diabetes mellitus without complications
CPT/HCPCS: 81001; 82043; 82570; 87086